=== PATIENT | male | born 1955 | race African-American/Black ===

== ENCOUNTER 2016-10-04 13:14 | Emergency (ER) | payer OTHER ==
[~2016-10-04] VITALS: Ht 167.6 cm; Wt 83.9 kg
[2016-10-04] MEDS ORDERED: ACETAMINOPHEN 500 MG TABLET PO ONE (14:45)
[2016-10-04] MEDS ORDERED: IV NORMAL SALINE 1000ML BAG 1,000 ML IV ONE (14:45)
[2016-10-04] MEDS ORDERED: FOSPHENYTOIN 1,000 MG in IV NORMAL SALINE 50ML 50 ML IV ONE (15:15)
--- NOTE | 2016-10-04 15:34 | PHYS DOC ---
Past Medical History Past Medical History: Hypertension, Seizure Additional Past Medical Histor: neuropathy Past Surgical History: No Surgical History Alcohol Use: Rarely Drug Use: None Adult General Chief Complaint Chief Complaint: SEIZURE HPI HPI Patient is a 61 year old male brought to the ED by family members with a complaint of a seizure. The patient has had a seizure disorder and has taken Dilantin since 1977. His dose is 360 mg at bedtime. He has not taken it for the last 2 or 3 nights because he has been sick. He has not run out, he just hasn't taken it. He states in the past when he goes to 3 days without taking Dilantin he will often have a seizure. He was seen this morning at the [facility] where he usually gets medical care for the complaint of not feeling well. He reports that influenza swab was negative but they put him on Tamiflu anyway because he had symptoms of influenza. He has had fever, chills, and body aches for 2 or 3 days. PCP [facility] Review of Systems Review of Systems Constitutional: Positive fever and chills 2-3 days Eyes: Denies change in visual acuity, redness, or eye pain [] HENT: Denies nasal congestion or sore throat [] Respiratory: Positive cough 2-3 days Cardiovascular: Denies chest pain GI: Denies abdominal pain, nausea, vomiting, bloody stools or diarrhea [] : Complains of some urinary frequency and burning Musculoskeletal: Complains of diffuse aches and pains Integument: Denies rash or skin lesions [] Neurologic: As in history of present illness for 2 seizures today Current Medications Current Medications Current Medications Medications (Trade) Dose Ordered Sig/Chaya Start Time Stop Time Status Last Admin Dose Admin Acetaminophen 1000 mg 1,000 mg 1X ONCE 10/04/16 14:45 10/04/16 14:46 DC 10/04/16 14:48 1,000 MG Fosphenytoin Sodium/Sodium Chloride (Cerebyx/Iv Sodium Chloride 0.9% 50ml) 70 ml @ 280 mls/hr 1X ONCE 10/04/16 15:15 10/04/16 15:29 DC 10/04/16 15:17 280 MLS/HR Sodium Chloride 1,000 ml @ 1,000 mls/hr 1X ONCE 10/04/16 14:45 10/04/16 15:44 DC 10/04/16 14:45 1,000 MLS/HR Allergies Allergies Allergies Coded Allergies Type Severity Reaction Last Updated Verified sulfamethoxazole Allergy Intermediate 03/27/14 No trimethoprim Allergy Intermediate 03/27/14 No Physical Exam Physical Exam Constitutional: Well developed, well nourished, alert, mentating normally, appears to not feel well HENT: Normocephalic, atraumatic, bilateral external ears normal, nose normal. [ ] Eyes: conjunctiva mildly injected bilaterally without discharge, no discharge. [ ] Neck: Normal range of motion, no stridor. [] Cardiovascular:Heart rate regular rhythm, no murmur [] Lungs & Thorax: Bilateral breath sounds clear to auscultation [] Abdomen: Bowel sounds normal, soft, no tenderness, no masses, no pulsatile masses. [] Skin: Warm, dry, no erythema, no rash. [] Extremities: No tenderness, no cyanosis, no clubbing, ROM intact, no edema. [] Neurologic: Alert and oriented X 3, normal motor function, normal sensory function, no focal deficits noted. [] Current Patient Data Vital Signs Vital Signs Date Time Temp Pulse Resp B/P Pulse Ox O2 Delivery O2 Flow Rate FiO2 10/04/16 13:24 98.4 95 18 150/84 93 Room Air 98.4 Lab Values Laboratory Tests Test 10/04/16 13:35 10/04/16 14:14 Phenytoin (Dilantin) Level 3.3mcg/mL (10.0-20.0) L Phenytoin Last Dose Date 10/01/16 Phenytoin Last Dose Time 2200 Urine Collection Type Unknown Urine Color Yellow Urine Clarity Clear Urine pH 7.0 Urine Specific [place] 1.020 Urine Protein 100mg/dL (NEG-TRACE) Urine Glucose (UA) Negativemg/dL (NEG) Urine Ketones (Stick) Negativemg/dL (NEG) Urine Blood Moderate (NEG) Urine Nitrite Negative (NEG) Urine Bilirubin Negative (NEG) Urine Urobilinogen Dipstick 0.2mg/dL (0.2 mg/dL) Urine Leukocyte Esterase Negative (NEG) Urine RBC >40/HPF (0-2) Urine WBC 0/HPF (0-4) Urine Bacteria 0/HPF (0-FEW) Urine Hyaline Casts Moderate/HPF Urine Mucus Marked/LPF Urine Sperm Present/HPF EKG EKG [] Radiology/Procedures Radiology/Procedures [] Course & Med Decision Making Course & Med Decision Making Pertinent Labs and Imaging studies reviewed. (See chart for details) 61-year-old male with a history of seizure disorder has missed a couple of doses of Dilantin and reports to self-limited seizures today. He also has been sick with a viral syndrome, already treated with Tamiflu earlier today at the [facility]. Labs shows subtherapeutic Dilantin level, I offered the patient oral versus IV Dilantin and he chose IV. He was given a gram of fosphenytoin IV and tolerated that well. Also given a liter of IV saline and acetaminophen for his viral syndrome complaints. For the complaints of urinary burning and frequency I ordered a urinalysis which is negative for infection but positive for microscopic hematuria. He has an appointment in 2 days at the [facility] with his primary care doctor and I asked him to discuss this with his doctor and told him he may need some further evaluation of microscopic hematuria. The patient had no seizure activity in the ED. He was discharged with family members. [] Dragon Disclaimer Dragon Disclaimer This electronic medical record was generated, in whole or in part, using a voice recognition dictation system. Departure Departure Impression: Primary Impression: Seizure Additional Impression: Noncompliance with medications Disposition: HOME, SELF-CARE Condition: STABLE Referrals: NO PCP (PCP) Patient Instructions: Hematuria, Adult Additional Instructions: Starting with tonight's dose, take your Dilantin as prescribed. For fever, take ibuprofen 800 mg every 6-8 hours, and take acetaminophen 1000 mg every 6-8 hours. Alternate those see your taking one or the other every 3-4 hours. Drink plenty of fluids. Urinalysis did not show any infection, but did show microscopic red blood cells. This needs to be evaluated by your primary care doctor at the [place]. Make an appointment and take the results of the urinalysis with you. Problem Qualifiers HONORIO CASTANEDA MD Oct 04, 2016 15:34
[2016-10-04 15:35] LABS: BILIRUBIN,URINE NEGATIVE (NEG); GLUCOSE,URINE NEGATIVE (NEG); NITRITE,URINE NEGATIVE (NEG); PROTEIN,URINE 100 mg/dL (NEG-TRACE); UROBILINOGEN,URINE 0.2 mg/dL (0.2 mg/dL)
[2016-10-04 15:43] LABS: BACTERIA,URINE 0 /HPF (0-FEW); RBC,URINE >40 /HPF (0-2); SPERM,URINE PRESENT /HPF; WBC,URINE 0 /HPF (0-4)
[2016-10-04 16:00] VITALS: BP 157/76
== END 2016-10-04 16:41 | disposition home or self-care (01) ==
LOC: ER 13:14
DX: R56.9 Unspecified convulsions (principal); Z91.14 Patient's other noncompliance with medication regimen; G40.909 Epilepsy, unspecified, not intractable, without status epilepticus; I10 Essential (primary) hypertension; G62.9 Polyneuropathy, unspecified; Z88.2 Allergy status to sulfonamides; Z88.1 Allergy status to other antibiotic agents
CPT/HCPCS: 36415; 80185; 81001; 96361; 96365; 99284; J7030; Q2009

== ENCOUNTER 2016-11-15 20:55 | Inpatient (IN) | payer OTHER ==
[~2016-11-15] VITALS: Ht 172.7 cm; Wt 91.2 kg
[2016-11-15] MEDS ORDERED: ONDANSETRON PF 4 MG/2 ML VIAL. IV ONE (22:45)
[2016-11-15] MEDS ORDERED: IV NORMAL SALINE 1000ML BAG 1,000 ML IV SCH (22:45)
[2016-11-15 23:02] LABS: BASO # 0.1 x10^3/uL (0.0-0.2); BASO % 1 % (0-3); EOS % 0 % (0-3); HEMATOCRIT 41.1 % (39.0-53.0); HEMOGLOBIN 13.5 g/dL (13.0-17.5); LYMPH # 0.9 x10^3/uL (1.0-4.8); LYMPH % 6 % (24-48); MEAN CORPUSCULAR HEMOGLOBIN 30 pg (25-35); MEAN CORPUSCULAR HGB CONC 33 g/dL (31-37); MEAN CORPUSCULAR VOLUME 90 fL (79-100); MONO % 8 % (0-9); NEUT % 85 % (31-73); PLATELET COUNT 271 x10^3/uL (140-400); RED BLOOD COUNT 4.54 x10^6/uL (4.30-5.70); RED CELL DISTRIBUTION WIDTH 13.2 % (11.5-14.5); WHITE BLOOD COUNT 16.1 x10^3/uL (4.0-11.0)
[2016-11-15 23:13] LABS: CALCIUM 9.3 mg/dL (8.5-10.1); CREATININE 1.2 mg/dL (0.7-1.3); POTASSIUM 3.5 mmol/L (3.5-5.1)
[2016-11-15 23:19] LABS: ALBUMIN 4.7 g/dL (3.4-5.0); ALBUMIN/GLOBULIN RATIO 1.1 (1.0-1.7); TOTAL BILIRUBIN 0.9 mg/dL (0.2-1.0)
[2016-11-15] MEDS ORDERED: CONTRAST GIVEN MC PRN (23:30)
[2016-11-15 23:34] LABS: % BASOS 1 % (0-3); PLT ESTIMATE ADEQUATE (ADEQUATE)
[2016-11-15] MEDS ORDERED: IOHEXOL 300 MG/ML 75 ML VIAL IV ONE (23:45)
[2016-11-15 23:55] LABS: BILIRUBIN,URINE NEGATIVE (NEG); GLUCOSE,URINE NEGATIVE (NEG); NITRITE,URINE NEGATIVE (NEG); PROTEIN,URINE NEGATIVE (NEG-TRACE); UROBILINOGEN,URINE 0.2 mg/dL (0.2 mg/dL)
[2016-11-16] VITALS (7 sets, daily range): BP systolic 136–176; BP diastolic 68–117
[2016-11-16 00:04] LABS: BACTERIA,URINE 0 /HPF (0-FEW); BARBITURATES NEG (NEG); BENZODIAZEPINES NEG (NEG); CANNABINOIDS NEG (NEG); COCAINE POS (NEG); METHADONE NEG (NEG); OPIATES NEG (NEG); PHENCYCLIDINE NEG (NEG); SQUAMOUS EPITHELIAL CELL,UR OCC /LPF; WBC,URINE 0 /HPF (0-4)
[2016-11-16 00:05] LABS: ETHANOL, URINE NEG (NEG)
--- NOTE | 2016-11-16 00:13 | RAD ---
PROCEDURE CT abdomen pelvis with contrast. HISTORY Severe mid abdominal pain. TECHNIQUE Helical CT imaging of the abdomen and pelvis is performed after 75 cc Omnipaque 300 IV contrast. PQRS: One or more the following individualized dose reduction techniques were utilized for the study: 1. Automated exposure control. 2. Adjustment of the mA and/or kV according to patient size. 3. Use of iterative reconstruction technique. COMPARISON None. FINDINGS Mild dependent atelectasis in the lower lobes. Cardiac size normal. There is a near fluid density nodule in the right cardiophrenic space measuring 1.7 x 2.6 cm. Finding does not have an appearance of a lymph node. Finding appears separate from the pericardium. The liver, gallbladder, spleen, right adrenal gland, abdominal aorta, and kidneys are normal. There is indeterminate left adrenal nodule measuring 3 x 2 centimeters. There is moderate inflammation along atrophic pancreas body and tail. The pancreatic duct is dilated in the atrophic section of pancreas measuring up to 6 millimeters. The pancreas head is homogeneous. Pancreatic duct is not dilated in the pancreas head. A definite pancreas mass at the point of transition is not seen although there is subtle hyper enhancement, coronal image 19. Evaluation of bowel may be limited without oral contrast. Stomach unremarkable. No dilated small bowel. The ascending and transverse colon is distended with air and scattered stool. No wall thickening is seen. Colonic pseudo-obstruction a consideration. The appendix is normal. No abdominal adenopathy. The urinary bladder is normal. Prostate size normal. No pelvic free fluid. No acute bone abnormality. IMPRESSION 1. There is peripancreatic inflammation of the body and tail compatible with acute pancreatitis. 2. The body and tail of the pancreas is atrophic with dilation of the pancreatic duct. There is faint hyper enhancement at point of transition to normal-appearing pancreas head and nondilated pancreatic duct. A mass is not excluded. After pancreatitis has resolved recommend further evaluation with MR abdomen with and without contrast. 3. Left adrenal nodule, indeterminate. 4. Gaseous distention of ascending and transverse colon may be due to colonic pseudo-obstruction. 5. Near fluid density nodule right cardiophrenic space. Suggest attention on follow up. Electronically signed by: Drew Hernandez MD (Nov 16, 2016 00:12:00)
[2016-11-16] MEDS: IV NORMAL SALINE 1000ML BAG 1,000 ML IV SCH ×6 (00:56→23:20)
[2016-11-16] MEDS ORDERED: ONDANSETRON PF 4 MG/2 ML VIAL. IV PRN ×2 (01:00→10:00)
[2016-11-16] MEDS ORDERED: HYDROMORPHONE 2 MG/ML VIAL. IV ONE (01:00)
[2016-11-16] MEDS ORDERED: FENTANYL PF 100 MCG/2 ML VIAL. IV ONE (01:30)
--- NOTE | 2016-11-16 01:37 | ACF ---
Admission Forms Criteria PANCREATITIS Clinical Indications for Admission to Inpatient Care (Place 'X' for any and all applicable criteria): Admission is indicated for 1 or more of the following (1)(2)(3)(4): [X]I. Acute pancreatitis[A] as indicated by 2 or MORE of the following: [X]a) Abdominal pain (eg, epigastric, left upper quadrant) [ ]b) Serum amylase or serum lipase greater than 3 times the upper limit of normal [X]c) Characteristic findings from abdominal imaging (eg, pancreatic inflammation, pancreatic necrosis, peripancreatic fluid collection)[B] [ ]II. Pancreatitis (acute or chronic ) requiring inpatient care as indicated by 1 or more of the following [ ]a) Inability to maintain oral hydration Hypoxemia [ ]b) Evidence of infection (eg, fever, peripancreatic abscess) [ ]c) Severe pain requiring acute inpatient management [ ]d) Hemodynamic instability [ ]e) Hypoxemia [ ]f) Acute renal failure [ ]g) Severe electrolyte abnormalities Extended stay beyond goal length of stay may be needed for (1)(11) [ ]a) Severe acute pancreatitis (10)(19) [ ]b) Persistent symptoms, ascites, or pleural effusion [ ]c) Abdominal compartment syndrome (10) [ ]d) Late complications [ ]e) Gallstones in gallbladder [ ]f) Acute renal failure (27) The original [employer] content created by [employer] has been revised. The portions of the content which have been revised are identified through the use of italic text or in bold,and [facility] has neither reviewed nor approved the modified material.All other unmodified content is copyright [employer]. Please see references footnoted in the original [employer] edition 2016 Admission Criteria Met?: Yes AGUEDA DIAZ Nov 16, 2016 01:37
--- NOTE | 2016-11-16 02:39 | PHYS DOC ---
Past Medical History Past Medical History: Hypertension, Seizure Additional Past Medical Histor: neuropathy Past Surgical History: No Surgical History Alcohol Use: Rarely Drug Use: Other Social History Narrative: "ALL OF THEM!" Adult General Chief Complaint Chief Complaint: ABDOMINAL PAIN HPI HPI Patient is a 61 year old gentleman who presents here today secondary to abdominal pain. Patient reports that the abdominal pain started approximately 2: 58 PM today. Patient is a history of hypertension. Patient has a history significant for obstructive sleep apnea. Patient has a history of pancreatitis. Patient reports he does smoke drink and does do drugs. Patient has a history of seizures in the past. Patient has any coronary disease, diabetes, CHF. Patient has not had any abdominal surgeries in the past. Patient has any fevers shakes chills. Patient reports his last drink was approximately 2 months ago. Patient denies any hematemesis or coffee-ground emesis although he reports he had approximately 3-4 bouts of vomiting today. Patient has any diarrhea chest pain shortness of breath dysuria frequency urgency melena bright red blood per rectum. Patient reports that the pain started at 3 PM. Patient reports that approximate 3 PM before the symptoms started he ate macaroni and cheese and CABG. Patient's physical exam is significant tenderness to palpation to the midepigastric area. Patient has no rebound or guarding. Patient assess obturator signs. Patient does not present with any signs or symptoms of be consistent with acute surgical abdomen. Patient's ER course is significant for a CT scan that revealed significant amount of inflammation around the pancreas. There was peripancreatic inflammation of the body and the tail compatible with acute pancreatitis. The body until the pancreas was atrophic with dilatation of the pancreatic duct. There is a faint hyperenhancement at the point of transition to normal appearing pancreas head and did not dilatation pancreatic duct. The mass is not excluded. Patient's labs were all within normal limits. Patient's lipase was unremarkable. While in the ER patient was given Dilaudid as well as fentanyl IV to assist with his pain. Patient does appear to be much more comfortable. Patient was given IV fluids for hydration given his multiple bouts of emesis. PE #1 abdominal pain: Most likely secondary to pancreatitis. It's unclear whether or not this patient might have chronic versus acute pancreatitis given his normal lipase however CT scan was significant inflammatory changes around the pancreas. Patient be admitted to the hospital for pain management, hydration , bowel rest, and GI evaluation. Review of Systems Review of Systems Constitutional: Denies fever or chills [] Eyes: Denies change in visual acuity, redness, or eye pain [] HENT: Denies nasal congestion or sore throat [] All other review systems are negative except as documented in the history of present illness portion. Current Medications Current Medications Current Medications Medications (Trade) Dose Ordered Sig/Chaya Start Time Stop Time Status Last Admin Dose Admin Info (Do NOT chart on this entry -- for MONITORING) 1 each PRN DAILY PRN 11/15/16 23:30 11/17/16 23:29 Iohexol (Omnipaque 300 Mg/ml) 75 ml 1X ONCE 11/15/16 23:45 11/15/16 23:46 DC 11/15/16 23:38 75 ML Ondansetron HCl (Zofran) 4 mg 1X ONCE 11/15/16 22:45 11/15/16 22:46 DC 11/15/16 23:53 4 MG Sodium Chloride (Iv Sodium Chloride 0.9% 1000ml Bag) 1,000 ml @ 1,000 mls/hr Q1H 11/15/16 22:45 11/15/16 23:44 DC 11/15/16 23:53 1,000 MLS/HR Allergies Allergies Allergies Coded Allergies Type Severity Reaction Last Updated Verified sulfamethoxazole Allergy Intermediate 03/27/14 No trimethoprim Allergy Intermediate 03/27/14 No Physical Exam Physical Exam Constitutional: Well developed, well nourished, no acute distress, non-toxic appearance. [] HENT: Normocephalic, atraumatic, bilateral external ears normal, oropharynx moist, no oral exudates, nose normal. [] Eyes: PERRLA, EOMI, conjunctiva normal, no discharge. [] Neck: Normal range of motion, no tenderness, supple, no stridor. [] Cardiovascular:Heart rate regular rhythm, no murmur [] Lungs & Thorax: Bilateral breath sounds clear to auscultation [] Abdomen: See above. Back: No tenderness, no CVA tenderness. [] Extremities: No tenderness, no cyanosis, no clubbing, ROM intact, no edema. [] Neurologic: Alert and oriented X 3, normal motor function, normal sensory function, no focal deficits noted. [] Psychologic: Affect normal, judgement normal, mood normal. [] Current Patient Data Vital Signs Vital Signs Date Time Temp Pulse Resp B/P Pulse Ox O2 Delivery O2 Flow Rate FiO2 11/15/16 23:58 91 22 193/90 97 Room Air 11/15/16 21:59 98.1 98.1 Lab Values Laboratory Tests Test 11/15/16 22:48 11/15/16 23:50 White Blood Count 16.1x10^3/uL (4.0-11.0) H Red Blood Count 4.54x10^6/uL (4.30-5.70) Hemoglobin 13.5g/dL (13.0-17.5) Hematocrit 41.1% (39.0-53.0) Mean Corpuscular Volume 90fL (79-100) Mean Corpuscular Hemoglobin 30pg (25-35) Mean Corpuscular Hemoglobin Concent 33g/dL (31-37) Red Cell Distribution Width 13.2% (11.5-14.5) Platelet Count 271x10^3/uL (140-400) Neutrophils (%) (Auto) 85% (31-73) H Lymphocytes (%) (Auto) 6% (24-48) L Monocytes (%) (Auto) 8% (0-9) Eosinophils (%) (Auto) 0% (0-3) Basophils (%) (Auto) 1% (0-3) Neutrophils # (Auto) 13.7x10^3uL (1.8-7.7) H Lymphocytes # (Auto) 0.9x10^3/uL (1.0-4.8) L Monocytes # (Auto) 1.3x10^3/uL (0.0-1.1) H Eosinophils # (Auto) 0.0x10^3/uL (0.0-0.7) Basophils # (Auto) 0.1x10^3/uL (0.0-0.2) Segmented Neutrophils % 86% (35-66) H Band Neutrophils % 2% (0-9) Lymphocytes % 6% (24-48) L Monocytes % 5% (0-10) Basophils % 1% (0-3) Platelet Estimate Adequate (ADEQUATE) Sodium Level 136mmol/L (136-145) Potassium Level 3.5mmol/L (3.5-5.1) Chloride Level 98mmol/L (98-107) Carbon Dioxide Level 25mmol/L (21-32) Anion Gap 13 (6-14) Blood Urea Nitrogen 11mg/dL (8-26) Creatinine 1.2mg/dL (0.7-1.3) Estimated GFR (Cockcroft-Gault) 75.0 BUN/Creatinine Ratio 9 (6-20) Glucose Level 151mg/dL (70-99) H Calcium Level 9.3mg/dL (8.5-10.1) Total Bilirubin 0.9mg/dL (0.2-1.0) Aspartate Amino Transferase (AST) 20U/L (15-37) Alanine Aminotransferase (ALT) 36U/L (16-63) Alkaline Phosphatase 87U/L (46-116) Troponin I Quantitative < 0.017ng/mL (0.000-0.055) Total Protein 9.0g/dL (6.4-8.2) H Albumin 4.7g/dL (3.4-5.0) Albumin/Globulin Ratio 1.1 (1.0-1.7) Lipase 70U/L (73-393) L Ethyl Alcohol Level < 10mg/dL (0-10) Urine Collection Type Unknown Urine Color Yellow Urine Clarity Clear Urine pH 8.0 Urine Specific [place] <=1.005 Urine Protein Negativemg/dL (NEG-TRACE) Urine Glucose (UA) Negativemg/dL (NEG) Urine Ketones (Stick) Negativemg/dL (NEG) Urine Blood Moderate (NEG) Urine Nitrite Negative (NEG) Urine Bilirubin Negative (NEG) Urine Urobilinogen Dipstick 0.2mg/dL (0.2 mg/dL) Urine Leukocyte Esterase Negative (NEG) Urine RBC 11-20/HPF (0-2) Urine WBC 0/HPF (0-4) Urine Squamous Epithelial Cells Occ/LPF Urine Bacteria 0/HPF (0-FEW) Urine Mucus Slight/LPF Urine Opiates Screen Neg (NEG) Urine Methadone Screen Neg (NEG) Urine Barbiturates Neg (NEG) Urine Phencyclidine Screen Neg (NEG) Urine Amphetamine/Methamphetamine Neg (NEG) Urine Benzodiazepines Screen Neg (NEG) Urine Cocaine Screen Pos (NEG) Urine Cannabinoids Screen Neg (NEG) Urine Ethyl Alcohol Neg (NEG) Laboratory Tests 11/15/16 22:48 Laboratory Tests 11/15/16 22:48 EKG EKG [] Radiology/Procedures Radiology/Procedures [] Course & Med Decision Making Course & Med Decision Making Pertinent Labs and Imaging studies reviewed. (See chart for details) [] Dragon Disclaimer Dragon Disclaimer This electronic medical record was generated, in whole or in part, using a voice recognition dictation system. Departure Departure Impression: Primary Impression: Pancreatitis Additional Impressions: Intractable abdominal pain Dehydration Crack cocaine use Disposition: ADMITTED INPATIENT Admitting Physician: Demar Tan Condition: STABLE Referrals: UNKNOWN PCP NAME (PCP) Problem Qualifiers Primary Impression: Pancreatitis Chronicity: acute Pancreatitis type: idiopathic Acute pancreatitis complication: unspecified Qualified Code: K85.00 - Idiopathic acute pancreatitis without necrosis or infection MADDY SEAY MD Nov 16, 2016 02:39
[2016-11-16] MEDS ORDERED: PHEN100C PO (03:31)
[2016-11-16] MEDS ORDERED: RANI150C PO (03:31)
[2016-11-16] MEDS ORDERED: GABA-586 PO (03:31)
[2016-11-16] MEDS ORDERED: AMLO5TAB4 PO (03:31)
--- NOTE | 2016-11-16 05:58 | EKG ---
[facility] [address] [place] [address] Test Date: 2016-11-15 Test Time: 23:22:33 Pat Name: ANUSHKA PEREIRA Department: Room: 563 1 Gender: M Breast Splitter: : 1955 Requested By: MADDY SEAY Order Number: [id number] Reading MD: Willie Spaulding Measurements Intervals [place] Rate: 91 P: 22 MA: 196 QRS: -8 QRSD: 78 T: 6 QT: 340 QTc: 420 Interpretive Statements SINUS RHYTHM NON-SPECIFIC ST/T CHANGES Electronically Signed On 11-16-2016 8:30:55 CDT by Willie Spaulding
[2016-11-16] MEDS ORDERED: hydrALAZINE 20 MG/ML VIAL. IVP PRN (10:00)
[2016-11-16] MEDS ORDERED: ACETAMINOPHEN 325 MG TABLET. PO PRN (10:00)
[2016-11-16] MEDS ORDERED: ALBUTEROL SULFATE 2.5 MG/3 ML NEBU. NEB PRN (10:00)
[2016-11-16] MEDS: FENTANYL PF 100 MCG/2 ML VIAL. IV PRN ×5 (10:03→21:42)
--- NOTE | 2016-11-16 13:13 | PDOC1 ---
History and Physical Current Problem List Problem List Problems Medical Problems: (1) Crack cocaine use Status: Acute (2) Dehydration Status: Acute (3) Intractable abdominal pain Status: Acute (4) Pancreatitis Status: Acute Current Medications Current Medications Current Medications Medications (Trade) Dose Ordered Sig/Chaya Start Time Stop Time Status Last Admin Dose Admin Acetaminophen (Tylenol) 325 mg PRN Q6HRS PRN 11/16/16 10:00 Acetaminophen/ Hydrocodone Bitart (Lortab 5/325) 1 tab PRN Q6HRS PRN 11/16/16 10:00 Albuterol Sulfate 2.5 mg 2.5 mg PRN Q4HRS PRN 11/16/16 10:00 Fentanyl Citrate (Fentanyl 2ml Vial) 50 mcg 1X ONCE 11/16/16 01:30 11/16/16 01:31 DC Hydralazine HCl (Apresoline) 10 mg PRN Q4HRS PRN 11/16/16 10:00 Hydromorphone HCl (Dilaudid) 1 mg 1X ONCE 11/16/16 01:00 11/16/16 01:01 DC 11/16/16 01:01 1 MG Info (Do NOT chart on this entry -- for MONITORING) 1 each PRN DAILY PRN 11/15/16 23:30 11/17/16 23:29 Iohexol (Omnipaque 300 Mg/ml) 75 ml 1X ONCE 11/15/16 23:45 11/15/16 23:46 DC 11/15/16 23:38 75 ML Ondansetron HCl (Zofran) 4 mg PRN Q8HRS PRN 11/16/16 10:00 Sodium Chloride (Iv Sodium Chloride 0.9% 1000ml Bag) 1,000 ml @ 150 mls/hr Q6H40M 11/16/16 10:00 11/17/16 09:59 11/16/16 10:02 150 MLS/HR Allergies Allergies Allergies Coded Allergies Type Severity Reaction Last Updated Verified sulfamethoxazole Allergy Intermediate 03/27/14 No trimethoprim Allergy Intermediate 03/27/14 No ROS Review of System CONSTITUTIONAL: No fever or chills EYES: No recent changes SKIN: No rash or itching CARDIOVASCULAR: No chest pain, syncope, palpitations, or edema RESPIRATORY: No SOB or cough GASTROINTESTINAL: nausea, vomiting or abdominal pain NEUROLOGICAL: No headaches or weakness ENDOCRINE: No cold or heat intolerance GENITOURINARY: No urgency or frequency of urination MUSCULOSKELETAL: No back pain or joint pain LYMPHATICS: No enlarged lymph nodes PSYCHIATRIC: No anxiety or depression Physical Exam Physical Exam GEN.: No apparent distress. Alert and oriented. HEENT: Head is normocephalic, atraumatic NECK: Supple. no JVD LUNGS: Clear to auscultation. normal airflow HEART: RRR, S1, S2 present. Peripheral pulses intact ABDOMEN: Soft, epigastric tender. Positive bowel sounds. EXTREMITIES: Without any cyanosis. NEUROLOGIC: Normal speech, normal tone PSYCHIATRIC: Normal affect, normal mood. SKIN: No visible skin lesions. Vitals Vitals Vital Signs Date Time Temp Pulse Resp B/P Pulse Ox O2 Delivery O2 Flow Rate FiO2 11/16/16 11:05 98.8 86 18 151/93 93 Room Air 98.8 Labs Labs Laboratory Tests Test 11/15/16 22:48 11/15/16 23:50 11/16/16 05:25 White Blood Count 16.1x10^3/uL (4.0-11.0) Red Blood Count 4.54x10^6/uL (4.30-5.70) Hemoglobin 13.5g/dL (13.0-17.5) Hematocrit 41.1% (39.0-53.0) Mean Corpuscular Volume 90fL (79-100) Mean Corpuscular Hemoglobin 30pg (25-35) Mean Corpuscular Hemoglobin Concent 33g/dL (31-37) Red Cell Distribution Width 13.2% (11.5-14.5) Platelet Count 271x10^3/uL (140-400) Neutrophils (%) (Auto) 85% (31-73) Lymphocytes (%) (Auto) 6% (24-48) Monocytes (%) (Auto) 8% (0-9) Eosinophils (%) (Auto) 0% (0-3) Basophils (%) (Auto) 1% (0-3) Neutrophils # (Auto) 13.7x10^3uL (1.8-7.7) Lymphocytes # (Auto) 0.9x10^3/uL (1.0-4.8) Monocytes # (Auto) 1.3x10^3/uL (0.0-1.1) Eosinophils # (Auto) 0.0x10^3/uL (0.0-0.7) Basophils # (Auto) 0.1x10^3/uL (0.0-0.2) Segmented Neutrophils % 86% (35-66) Band Neutrophils % 2% (0-9) Lymphocytes % 6% (24-48) Monocytes % 5% (0-10) Basophils % 1% (0-3) Platelet Estimate Adequate (ADEQUATE) Sodium Level 136mmol/L (136-145) Potassium Level 3.5mmol/L (3.5-5.1) Chloride Level 98mmol/L (98-107) Carbon Dioxide Level 25mmol/L (21-32) Anion Gap 13 (6-14) Blood Urea Nitrogen 11mg/dL (8-26) Creatinine 1.2mg/dL (0.7-1.3) Estimated GFR (Cockcroft-Gault) 75.0 BUN/Creatinine Ratio 9 (6-20) Glucose Level 151mg/dL (70-99) Calcium Level 9.3mg/dL (8.5-10.1) Total Bilirubin 0.9mg/dL (0.2-1.0) Aspartate Amino Transf (AST/SGOT) 20U/L (15-37) Alanine Aminotransferase (ALT/SGPT) 36U/L (16-63) Alkaline Phosphatase 87U/L (46-116) Troponin I Quantitative < 0.017ng/mL (0.000-0.055) Total Protein 9.0g/dL (6.4-8.2) Albumin 4.7g/dL (3.4-5.0) Albumin/Globulin Ratio 1.1 (1.0-1.7) Lipase 70U/L (73-393) 57U/L (73-393) Ethyl Alcohol Level < 10mg/dL (0-10) Urine Collection Type Unknown Urine Color Yellow Urine Clarity Clear Urine pH 8.0 Urine Specific [place] <=1.005 Urine Protein Negativemg/dL (NEG-TRACE) Urine Glucose (UA) Negativemg/dL (NEG) Urine Ketones (Stick) Negativemg/dL (NEG) Urine Blood Moderate (NEG) Urine Nitrite Negative (NEG) Urine Bilirubin Negative (NEG) Urine Urobilinogen Dipstick 0.2mg/dL (0.2 mg/dL) Urine Leukocyte Esterase Negative (NEG) Urine RBC 11-20/HPF (0-2) Urine WBC 0/HPF (0-4) Urine Squamous Epithelial Cells Occ/LPF Urine Bacteria 0/HPF (0-FEW) Urine Mucus Slight/LPF Urine Opiates Screen Neg (NEG) Urine Methadone Screen Neg (NEG) Urine Barbiturates Neg (NEG) Urine Phencyclidine Screen Neg (NEG) Urine Amphetamine/Methamphetamine Neg (NEG) Urine Benzodiazepines Screen Neg (NEG) Urine Cocaine Screen Pos (NEG) Urine Cannabinoids Screen Neg (NEG) Urine Ethyl Alcohol Neg (NEG) Laboratory Tests Test 11/15/16 22:48 11/15/16 23:50 11/16/16 05:25 White Blood Count 16.1x10^3/uL (4.0-11.0) Red Blood Count 4.54x10^6/uL (4.30-5.70) Hemoglobin 13.5g/dL (13.0-17.5) Hematocrit 41.1% (39.0-53.0) Mean Corpuscular Volume 90fL (79-100) Mean Corpuscular Hemoglobin 30pg (25-35) Mean Corpuscular Hemoglobin Concent 33g/dL (31-37) Red Cell Distribution Width 13.2% (11.5-14.5) Platelet Count 271x10^3/uL (140-400) Neutrophils (%) (Auto) 85% (31-73) Lymphocytes (%) (Auto) 6% (24-48) Monocytes (%) (Auto) 8% (0-9) Eosinophils (%) (Auto) 0% (0-3) Basophils (%) (Auto) 1% (0-3) Neutrophils # (Auto) 13.7x10^3uL (1.8-7.7) Lymphocytes # (Auto) 0.9x10^3/uL (1.0-4.8) Monocytes # (Auto) 1.3x10^3/uL (0.0-1.1) Eosinophils # (Auto) 0.0x10^3/uL (0.0-0.7) Basophils # (Auto) 0.1x10^3/uL (0.0-0.2) Segmented Neutrophils % 86% (35-66) Band Neutrophils % 2% (0-9) Lymphocytes % 6% (24-48) Monocytes % 5% (0-10) Basophils % 1% (0-3) Platelet Estimate Adequate (ADEQUATE) Sodium Level 136mmol/L (136-145) Potassium Level 3.5mmol/L (3.5-5.1) Chloride Level 98mmol/L (98-107) Carbon Dioxide Level 25mmol/L (21-32) Anion Gap 13 (6-14) Blood Urea Nitrogen 11mg/dL (8-26) Creatinine 1.2mg/dL (0.7-1.3) Estimated GFR (Cockcroft-Gault) 75.0 BUN/Creatinine Ratio 9 (6-20) Glucose Level 151mg/dL (70-99) Calcium Level 9.3mg/dL (8.5-10.1) Total Bilirubin 0.9mg/dL (0.2-1.0) Aspartate Amino Transf (AST/SGOT) 20U/L (15-37) Alanine Aminotransferase (ALT/SGPT) 36U/L (16-63) Alkaline Phosphatase 87U/L (46-116) Troponin I Quantitative < 0.017ng/mL (0.000-0.055) Total Protein 9.0g/dL (6.4-8.2) Albumin 4.7g/dL (3.4-5.0) Albumin/Globulin Ratio 1.1 (1.0-1.7) Lipase 70U/L (73-393) 57U/L (73-393) Ethyl Alcohol Level < 10mg/dL (0-10) Urine Collection Type Unknown Urine Color Yellow Urine Clarity Clear Urine pH 8.0 Urine Specific [place] <=1.005 Urine Protein Negativemg/dL (NEG-TRACE) Urine Glucose (UA) Negativemg/dL (NEG) Urine Ketones (Stick) Negativemg/dL (NEG) Urine Blood Moderate (NEG) Urine Nitrite Negative (NEG) Urine Bilirubin Negative (NEG) Urine Urobilinogen Dipstick 0.2mg/dL (0.2 mg/dL) Urine Leukocyte Esterase Negative (NEG) Urine RBC 11-20/HPF (0-2) Urine WBC 0/HPF (0-4) Urine Squamous Epithelial Cells Occ/LPF Urine Bacteria 0/HPF (0-FEW) Urine Mucus Slight/LPF Urine Opiates Screen Neg (NEG) Urine Methadone Screen Neg (NEG) Urine Barbiturates Neg (NEG) Urine Phencyclidine Screen Neg (NEG) Urine Amphetamine/Methamphetamine Neg (NEG) Urine Benzodiazepines Screen Neg (NEG) Urine Cocaine Screen Pos (NEG) Urine Cannabinoids Screen Neg (NEG) Urine Ethyl Alcohol Neg (NEG) VTE Prophylaxis Ordered VTE Prophylaxis Devices: Yes VTE Pharmacological Prophylaxi: Yes JULIA MICHAUD MD Nov 16, 2016 13:13
[2016-11-16] MEDS: ENOXAPARIN 40 MG/0.4 ML SYRINGE. SQ SCH (13:57)
[2016-11-16] MEDS: AMLODIPINE BESYLATE 5 MG TABLET. PO SCH (13:58)
[2016-11-16] MEDS: GABAPENTIN 300 MG CAPSULE. PO SCH ×2 (13:58→21:00)
--- NOTE | 2016-11-16 14:26 | PDOC2 ---
GI CONSULT Reason For Consult: Pancreatitis HPI: HPI: 61 y/o AA male w/ h/o previous ERCPs at the OR to "watch his pancreas." History difficult this afternoon; he was sleeping when I walked in, but awoke and is quite uncomfortable, not interested in talking. Epigastric pain began yesterday after eating. To me, denies previous pancreatitis and says never had pain like this previously. Associated w/ n/v. [place] constipated yesterday. Denies hematochezia, melena, hematemesis. Drinks alcohol rarely. (ER note says sober x 2 months.) Denies NSAID use. WBC 16.1, normal LFTs, normal lipase. CT A/P showed peripancreatic inflammation of the body and tail, atrophic body and tail of the pancreas, dilation of pancreatic duct and faint hyper enhancement at point of transition to normal-appearing pancreas head and nondilated pancreatic duct (mass not excluded), left adrenal nodule, gaseous distention of ascending and transverse colon may be due to colonic pseudo-obstruction, and near fluid density nodule right cardiophrenic space. PMH: PMH: from chart - HTN, JOSSELINE, DM, CHF, seizures, BPH FH: Family History: No pertinent hx (denies pancreatitis, GI cancers) Social History: Smoke: <1 pack per day ALCOHOL: rare Drugs: None ROS: GEN: Denies fevers, chills, sweats HEENT: Denies blurred vision, sore throat CV: Denies chest pain RESP: Denies shortness of air, cough GI: Per HPI : Denies hematuria, dysuria ENDO: Denies weight changes NEURO: Denies confusion, dizziness MSK: Denies weakness, joint pain/swelling SKIN: Denies jaundice, pruritus VItals: Vitals: Vital Signs Date Time Temp Pulse Resp B/P Pulse Ox O2 Delivery O2 Flow Rate FiO2 11/16/16 13:58 96 159/100 11/16/16 13:53 Room Air 11/16/16 11:05 98.8 18 93 98.8 Labs: Labs: Laboratory Tests Test 11/15/16 22:48 11/15/16 23:50 11/16/16 05:25 White Blood Count 16.1x10^3/uL (4.0-11.0) Red Blood Count 4.54x10^6/uL (4.30-5.70) Hemoglobin 13.5g/dL (13.0-17.5) Hematocrit 41.1% (39.0-53.0) Mean Corpuscular Volume 90fL (79-100) Mean Corpuscular Hemoglobin 30pg (25-35) Mean Corpuscular Hemoglobin Concent 33g/dL (31-37) Red Cell Distribution Width 13.2% (11.5-14.5) Platelet Count 271x10^3/uL (140-400) Neutrophils (%) (Auto) 85% (31-73) Lymphocytes (%) (Auto) 6% (24-48) Monocytes (%) (Auto) 8% (0-9) Eosinophils (%) (Auto) 0% (0-3) Basophils (%) (Auto) 1% (0-3) Neutrophils # (Auto) 13.7x10^3uL (1.8-7.7) Lymphocytes # (Auto) 0.9x10^3/uL (1.0-4.8) Monocytes # (Auto) 1.3x10^3/uL (0.0-1.1) Eosinophils # (Auto) 0.0x10^3/uL (0.0-0.7) Basophils # (Auto) 0.1x10^3/uL (0.0-0.2) Segmented Neutrophils % 86% (35-66) Band Neutrophils % 2% (0-9) Lymphocytes % 6% (24-48) Monocytes % 5% (0-10) Basophils % 1% (0-3) Platelet Estimate Adequate (ADEQUATE) Sodium Level 136mmol/L (136-145) Potassium Level 3.5mmol/L (3.5-5.1) Chloride Level 98mmol/L (98-107) Carbon Dioxide Level 25mmol/L (21-32) Anion Gap 13 (6-14) Blood Urea Nitrogen 11mg/dL (8-26) Creatinine 1.2mg/dL (0.7-1.3) Estimated GFR (Cockcroft-Gault) 75.0 BUN/Creatinine Ratio 9 (6-20) Glucose Level 151mg/dL (70-99) Calcium Level 9.3mg/dL (8.5-10.1) Total Bilirubin 0.9mg/dL (0.2-1.0) Aspartate Amino Transf (AST/SGOT) 20U/L (15-37) Alanine Aminotransferase (ALT/SGPT) 36U/L (16-63) Alkaline Phosphatase 87U/L (46-116) Troponin I Quantitative < 0.017ng/mL (0.000-0.055) Total Protein 9.0g/dL (6.4-8.2) Albumin 4.7g/dL (3.4-5.0) Albumin/Globulin Ratio 1.1 (1.0-1.7) Lipase 70U/L (73-393) 57U/L (73-393) Ethyl Alcohol Level < 10mg/dL (0-10) Urine Collection Type Unknown Urine Color Yellow Urine Clarity Clear Urine pH 8.0 Urine Specific [place] <=1.005 Urine Protein Negativemg/dL (NEG-TRACE) Urine Glucose (UA) Negativemg/dL (NEG) Urine Ketones (Stick) Negativemg/dL (NEG) Urine Blood Moderate (NEG) Urine Nitrite Negative (NEG) Urine Bilirubin Negative (NEG) Urine Urobilinogen Dipstick 0.2mg/dL (0.2 mg/dL) Urine Leukocyte Esterase Negative (NEG) Urine RBC 11-20/HPF (0-2) Urine WBC 0/HPF (0-4) Urine Squamous Epithelial Cells Occ/LPF Urine Bacteria 0/HPF (0-FEW) Urine Mucus Slight/LPF Urine Opiates Screen Neg (NEG) Urine Methadone Screen Neg (NEG) Urine Barbiturates Neg (NEG) Urine Phencyclidine Screen Neg (NEG) Urine Amphetamine/Methamphetamine Neg (NEG) Urine Benzodiazepines Screen Neg (NEG) Urine Cocaine Screen Pos (NEG) Urine Cannabinoids Screen Neg (NEG) Urine Ethyl Alcohol Neg (NEG) Allergies: Coded Allergies: sulfamethoxazole (Unverified Allergy, Intermediate, 03/27/14) trimethoprim (Unverified Allergy, Intermediate, 03/27/14) Medications: Current Medications Medications (Trade) Dose Ordered Sig/Chaya Route PRN Reason Start Time Stop Time Status Last Admin Dose Admin Sodium Chloride (Iv Sodium Chloride 0.9% 1000ml Bag) 1,000 ml @ 1,000 mls/hr Q1H IV 11/15/16 22:45 11/15/16 23:44 DC 11/15/16 23:53 Ondansetron HCl (Zofran) 4 mg 1X ONCE IV 11/15/16 22:45 11/15/16 22:46 DC 11/15/16 23:53 Iohexol (Omnipaque 300 Mg/ml) 75 ml 1X ONCE IV 11/15/16 23:45 11/15/16 23:46 DC 11/15/16 23:38 Hydromorphone HCl (Dilaudid) 1 mg 1X ONCE IV 11/16/16 01:00 11/16/16 01:01 DC 11/16/16 01:01 Ondansetron HCl (Zofran) 4 mg PRN Q8HRS PRN IV NAUSEA/VOMITING 11/16/16 01:00 11/17/16 00:59 11/16/16 10:04 Fentanyl Citrate 50 mcg 50 mcg PRN Q2HR PRN IV SEVERE PAIN 11/16/16 01:00 11/17/16 00:59 11/16/16 13:53 Sodium Chloride (Iv Sodium Chloride 0.9% 1000ml Bag) 1,000 ml @ 150 mls/hr Q6H40M IV 11/16/16 10:00 11/17/16 09:59 11/16/16 10:02 Amlodipine Besylate (Norvasc) 5 mg DAILY PO 11/16/16 14:00 11/16/16 13:58 Gabapentin (Neurontin) 900 mg TID PO 11/16/16 14:00 11/16/16 13:58 Enoxaparin Sodium (Lovenox 40mg Syringe) 40 mg Q24H SQ 11/16/16 15:00 11/16/16 13:57 Imaging: Imaging: CT A/P IMPRESSION 1. There is peripancreatic inflammation of the body and tail compatible with acute pancreatitis. 2. The body and tail of the pancreas is atrophic with dilation of the pancreatic duct. There is faint hyper enhancement at point of transition to normal-appearing pancreas head and nondilated pancreatic duct. A mass is not excluded. After pancreatitis has resolved recommend further evaluation with MR abdomen with and without contrast. 3. Left adrenal nodule, indeterminate. 4. Gaseous distention of ascending and transverse colon may be due to colonic pseudo-obstruction. 5. Near fluid density nodule right cardiophrenic space. Suggest attention on follow up. PE: GEN: uncomfortable HEENT: Atraumatic, PERRL LUNGS: clear anteriorly HEART: RRR ABD: tender diffusely EXTREMITY: No edema SKIN: No rashes, no jaundice NEURO/PSYCH: A & O 3, poor historian A/P: A/P: Pancreatitis -seems h/o this w/ previous ERCPs at the OR -CT as above: peripancreatic inflammation of the body and tail, atrophic body and tail of the pancreas, dilation of pancreatic duct, faint hyper-enhancement at point of transition to normal-appearing pancreas head and nondilated pancreatic duct (mass not excluded) -lipase WNL Abd pain, n/v -gaseous distention of ascending and transverse colon Leukocytosis Left adrenal nodule -per primary -- Medical therapy for what seems to be chronic pancreatitis (?alcohol) w/ previous eval at OR. NPO, monitor WBC. PRAVEENA VITAL Nov 16, 2016 14:26
--- NOTE | 2016-11-16 15:59 | HP ---
ADMIT DATE: 11/16/2016 CHIEF COMPLAINT: Abdominal pain, nausea, vomiting. HISTORY OF PRESENT ILLNESS: A 61-year-old male patient with prior history of pancreatitis and questionable pancreatic cyst, which has been monitored by doctors at the [facility], presented to the ER with complaints of abdominal pain. Symptoms started nearly yesterday afternoon around 2:30 p.m. The patient's noted that he was drinking alcohol; recently started drinking alcohol, but very limited. But as per the patient, his pancreatitis is under control, which has been monitored by physicians at the [facility]. He denies any hematemesis or hematochezia. He denies any constipation or other symptoms such as chest pain or palpitations. He has history of hypertension and seizures; they were well controlled. PAST MEDICAL HISTORY: Hypertension, seizures, pancreatitis, pancreatic pseudocyst, and neuropathy. PERSONAL HISTORY: No smoking. Alcohol occasionally. No substance abuse. FAMILY HISTORY: Sister has a cancer, unknown type. REVIEW OF SYSTEMS AND PHYSICAL EXAMINATION: Please see my electronic H and P. ALLERGIES: BACTRIM. LABORATORY DATA: WBC 16.1, hemoglobin 13.5, MCV is 90, platelets 2271, lymphocytes 6. Chemistry: Sodium 136, potassium at 3.5, carbon dioxide 25, gap is 13, BUN is 11, creatinine 1.2. Toxicology: Negative except for cocaine. Urine: pH is 8.0, specific gravity is less than 1.005, glucose negative, ketones negative, nitrites negative. IMAGING STUDIES: 1. Abdomen and pelvis CT showed peripancreatic inflammation of the body and tail, compatible with acute pancreatitis. 2. Body and tail of pancreas is atrophic with dilatation of the pancreatic duct. 3. Gastric distension of the ascending and transverse colon may be due to colonic pseudo-obstruction. ASSESSMENT: 1. Acute pancreatitis with prior history of pancreatitis. 2. Hypertension. 3. Seizure history. PLAN: 1. Keep patient n.p.o. and pain control with IV fentanyl 25 mcg q. 2 hours. 2. IV hydration at 150 mL per hour. 3. IV Zofran for nausea and vomiting. 4. Gastroenterology has been consulted. 5. Monitor lipase in a.m. 6. If the patient's symptoms are not improving, repeat imaging studies in couple of days. 7. The patient and his have been educated about alcohol abstinence. 8. Home medications reviewed and reconciled. 9. Other chronic problems are stable condition. 10. DVT prophylaxis with Lovenox. JULIA MICHAUD MD DR: ILENE/fredy JOB#: [id number] / [id number]
--- NOTE | 2016-11-16 16:29 | RAD ---
Limited ultrasound or the abdomen 11/16/2016 Clinical history: Epigastric pain with history of pancreatitis. Technique: A real-time ultrasound examination of the right upper quadrant of the abdomen was performed. Multiple images were obtained. Findings: Comparison is made to the patient's CT scan of the abdomen dated 11/15/2016. The gallbladder is distended. It measures 9.8 cm in greatest diameter. No gallstones are visualized. The gallbladder wall thickness is within normal limits. No pericholecystic fluid is seen. The patient has tenderness with palpation of the ultrasound transducer over the gallbladder (positive sonographic Bautista sign). The common bile duct measures 9 mm in diameter which is mildly dilated. The liver is normal in size measuring 16 cm in length. No focal abnormality of the liver is seen. The pancreas is not well visualized due to overlying bowel gas. The right kidney is within normal limits. Impression: 1. The gallbladder is distended. No gallstones are visualized. The patient has a positive sonographic Bautista sign. 2. The common bile duct is mildly dilated measuring 9 mm in diameter.
[2016-11-16] MEDS: FAMOTIDINE 20 MG TABLET. PO SCH (21:00)
[2016-11-17] MEDS: FENTANYL PF 100 MCG/2 ML VIAL. IV PRN (00:28)
[2016-11-17] MEDS: PHENYTOIN SODIUM EXTENDED 100 MG CAPSULE PO SCH ×2 (00:29→21:38)
[2016-11-17] MEDS: PHENYTOIN SODIUM EXTENDED 30 MG CAPSULE. PO SCH ×2 (00:29→21:38)
[2016-11-17 03:35] VITALS: BP 145/95
[2016-11-17] MEDS: IV NORMAL SALINE 1000ML BAG 1,000 ML IV SCH (06:00)
[2016-11-17] MEDS: HYDROCODONE/APAP 5/325MG TABLET. PO PRN (06:23)
[2016-11-17 07:00] VITALS: BP 137/81
[2016-11-17 07:15] LABS: BASO % 0 % (0-3); EOS % 0 % (0-3); HEMATOCRIT 37.9 % (39.0-53.0); HEMOGLOBIN 12.2 g/dL (13.0-17.5); LYMPH # 1.5 x10^3/uL (1.0-4.8); LYMPH % 10 % (24-48); MEAN CORPUSCULAR HEMOGLOBIN 30 pg (25-35); MEAN CORPUSCULAR HGB CONC 32 g/dL (31-37); MEAN CORPUSCULAR VOLUME 91 fL (79-100); MONO % 11 % (0-9); NEUT % 79 % (31-73); PLATELET COUNT 230 x10^3/uL (140-400); RED BLOOD COUNT 4.14 x10^6/uL (4.30-5.70); RED CELL DISTRIBUTION WIDTH 13.2 % (11.5-14.5); WHITE BLOOD COUNT 15.4 x10^3/uL (4.0-11.0)
[2016-11-17 07:23] LABS: ALBUMIN 3.6 g/dL (3.4-5.0); ALBUMIN/GLOBULIN RATIO 0.9 (1.0-1.7); CALCIUM 8.6 mg/dL (8.5-10.1); CREATININE 1.2 mg/dL (0.7-1.3); POTASSIUM 4.1 mmol/L (3.5-5.1); TOTAL BILIRUBIN 0.5 mg/dL (0.2-1.0); TOTAL PROTEIN 7.4 g/dL (6.4-8.2)
[2016-11-17] MEDS: AMLODIPINE BESYLATE 5 MG TABLET. PO SCH (09:00)
[2016-11-17] MEDS: GABAPENTIN 300 MG CAPSULE. PO SCH ×3 (09:00→21:39)
[2016-11-17] MEDS: FAMOTIDINE 20 MG TABLET. PO SCH ×2 (09:00→21:39)
[2016-11-17 10:49] VITALS: BP 147/103
--- NOTE | 2016-11-17 12:21 | PDOC ---
PROGRESS NOTES Chief Complaint Chief Complaint cc: abdominal pain A/P 1. Acute pancreatitis with prior history of pancreatitis. 2. Hypertension. 3. Seizure history. 4. Sleep apnea. Plan pain control iv morphine IV hydration NPO CPAP GI following History of Present Illness History of Present Illness pain not controlled. Vitals Vitals Vital Signs Date Time Temp Pulse Resp B/P Pulse Ox O2 Delivery O2 Flow Rate FiO2 11/17/16 10:49 98.4 83 20 147/103 93 BiPAP/CPAP 98.4 Physical Exam General: Alert, Oriented X3 Heart: Normal S1, Normal S2 Lungs: Clear Abdomen: Normal bowel sounds, Soft, Other (mild tender in epi) Labs LABS Laboratory Tests Test 11/17/16 06:10 White Blood Count 15.4x10^3/uL (4.0-11.0) Red Blood Count 4.14x10^6/uL (4.30-5.70) Hemoglobin 12.2g/dL (13.0-17.5) Hematocrit 37.9% (39.0-53.0) Mean Corpuscular Volume 91fL (79-100) Mean Corpuscular Hemoglobin 30pg (25-35) Mean Corpuscular Hemoglobin Concent 32g/dL (31-37) Red Cell Distribution Width 13.2% (11.5-14.5) Platelet Count 230x10^3/uL (140-400) Neutrophils (%) (Auto) 79% (31-73) Lymphocytes (%) (Auto) 10% (24-48) Monocytes (%) (Auto) 11% (0-9) Eosinophils (%) (Auto) 0% (0-3) Basophils (%) (Auto) 0% (0-3) Neutrophils # (Auto) 12.2x10^3uL (1.8-7.7) Lymphocytes # (Auto) 1.5x10^3/uL (1.0-4.8) Monocytes # (Auto) 1.6x10^3/uL (0.0-1.1) Eosinophils # (Auto) 0.0x10^3/uL (0.0-0.7) Basophils # (Auto) 0.0x10^3/uL (0.0-0.2) Sodium Level 141mmol/L (136-145) Potassium Level 4.1mmol/L (3.5-5.1) Chloride Level 103mmol/L (98-107) Carbon Dioxide Level 23mmol/L (21-32) Anion Gap 15 (6-14) Blood Urea Nitrogen 14mg/dL (8-26) Creatinine 1.2mg/dL (0.7-1.3) Estimated GFR (Cockcroft-Gault) 75.0 BUN/Creatinine Ratio 12 (6-20) Glucose Level 121mg/dL (70-99) Calcium Level 8.6mg/dL (8.5-10.1) Total Bilirubin 0.5mg/dL (0.2-1.0) Aspartate Amino Transf (AST/SGOT) 13U/L (15-37) Alanine Aminotransferase (ALT/SGPT) 21U/L (16-63) Alkaline Phosphatase 65U/L (46-116) Total Protein 7.4g/dL (6.4-8.2) Albumin 3.6g/dL (3.4-5.0) Albumin/Globulin Ratio 0.9 (1.0-1.7) Assessment and Plan Assessmemt and Plan Problems Medical Problems: (1) Crack cocaine use Status: Acute (2) Dehydration Status: Acute (3) Intractable abdominal pain Status: Acute (4) Pancreatitis Status: Acute Problems: Comment Review of Relevant I have reviewed the following items tammy (where applicable) has been applied. Labs Laboratory Tests Test 11/15/16 22:48 11/15/16 23:50 11/16/16 05:25 11/17/16 06:10 White Blood Count 16.1x10^3/uL (4.0-11.0) 15.4x10^3/uL (4.0-11.0) Red Blood Count 4.54x10^6/uL (4.30-5.70) 4.14x10^6/uL (4.30-5.70) Hemoglobin 13.5g/dL (13.0-17.5) 12.2g/dL (13.0-17.5) Hematocrit 41.1% (39.0-53.0) 37.9% (39.0-53.0) Mean Corpuscular Volume 90fL (79-100) 91fL (79-100) Mean Corpuscular Hemoglobin 30pg (25-35) 30pg (25-35) Mean Corpuscular Hemoglobin Concent 33g/dL (31-37) 32g/dL (31-37) Red Cell Distribution Width 13.2% (11.5-14.5) 13.2% (11.5-14.5) Platelet Count 271x10^3/uL (140-400) 230x10^3/uL (140-400) Neutrophils (%) (Auto) 85% (31-73) 79% (31-73) Lymphocytes (%) (Auto) 6% (24-48) 10% (24-48) Monocytes (%) (Auto) 8% (0-9) 11% (0-9) Eosinophils (%) (Auto) 0% (0-3) 0% (0-3) Basophils (%) (Auto) 1% (0-3) 0% (0-3) Neutrophils # (Auto) 13.7x10^3uL (1.8-7.7) 12.2x10^3uL (1.8-7.7) Lymphocytes # (Auto) 0.9x10^3/uL (1.0-4.8) 1.5x10^3/uL (1.0-4.8) Monocytes # (Auto) 1.3x10^3/uL (0.0-1.1) 1.6x10^3/uL (0.0-1.1) Eosinophils # (Auto) 0.0x10^3/uL (0.0-0.7) 0.0x10^3/uL (0.0-0.7) Basophils # (Auto) 0.1x10^3/uL (0.0-0.2) 0.0x10^3/uL (0.0-0.2) Segmented Neutrophils % 86% (35-66) Band Neutrophils % 2% (0-9) Lymphocytes % 6% (24-48) Monocytes % 5% (0-10) Basophils % 1% (0-3) Platelet Estimate Adequate (ADEQUATE) Sodium Level 136mmol/L (136-145) 141mmol/L (136-145) Potassium Level 3.5mmol/L (3.5-5.1) 4.1mmol/L (3.5-5.1) Chloride Level 98mmol/L (98-107) 103mmol/L (98-107) Carbon Dioxide Level 25mmol/L (21-32) 23mmol/L (21-32) Anion Gap 13 (6-14) 15 (6-14) Blood Urea Nitrogen 11mg/dL (8-26) 14mg/dL (8-26) Creatinine 1.2mg/dL (0.7-1.3) 1.2mg/dL (0.7-1.3) Estimated GFR (Cockcroft-Gault) 75.0 75.0 BUN/Creatinine Ratio 9 (6-20) 12 (6-20) Glucose Level 151mg/dL (70-99) 121mg/dL (70-99) Calcium Level 9.3mg/dL (8.5-10.1) 8.6mg/dL (8.5-10.1) Total Bilirubin 0.9mg/dL (0.2-1.0) 0.5mg/dL (0.2-1.0) Aspartate Amino Transf (AST/SGOT) 20U/L (15-37) 13U/L (15-37) Alanine Aminotransferase (ALT/SGPT) 36U/L (16-63) 21U/L (16-63) Alkaline Phosphatase 87U/L (46-116) 65U/L (46-116) Troponin I Quantitative < 0.017ng/mL (0.000-0.055) Total Protein 9.0g/dL (6.4-8.2) 7.4g/dL (6.4-8.2) Albumin 4.7g/dL (3.4-5.0) 3.6g/dL (3.4-5.0) Albumin/Globulin Ratio 1.1 (1.0-1.7) 0.9 (1.0-1.7) Lipase 70U/L (73-393) 57U/L (73-393) Ethyl Alcohol Level < 10mg/dL (0-10) Urine Collection Type Unknown Urine Color Yellow Urine Clarity Clear Urine pH 8.0 Urine Specific [place] <=1.005 Urine Protein Negativemg/dL (NEG-TRACE) Urine Glucose (UA) Negativemg/dL (NEG) Urine Ketones (Stick) Negativemg/dL (NEG) Urine Blood Moderate (NEG) Urine Nitrite Negative (NEG) Urine Bilirubin Negative (NEG) Urine Urobilinogen Dipstick 0.2mg/dL (0.2 mg/dL) Urine Leukocyte Esterase Negative (NEG) Urine RBC 11-20/HPF (0-2) Urine WBC 0/HPF (0-4) Urine Squamous Epithelial Cells Occ/LPF Urine Bacteria 0/HPF (0-FEW) Urine Mucus Slight/LPF Urine Opiates Screen Neg (NEG) Urine Methadone Screen Neg (NEG) Urine Barbiturates Neg (NEG) Urine Phencyclidine Screen Neg (NEG) Urine Amphetamine/Methamphetamine Neg (NEG) Urine Benzodiazepines Screen Neg (NEG) Urine Cocaine Screen Pos (NEG) Urine Cannabinoids Screen Neg (NEG) Urine Ethyl Alcohol Neg (NEG) Laboratory Tests Test 11/17/16 06:10 White Blood Count 15.4x10^3/uL (4.0-11.0) Red Blood Count 4.14x10^6/uL (4.30-5.70) Hemoglobin 12.2g/dL (13.0-17.5) Hematocrit 37.9% (39.0-53.0) Mean Corpuscular Volume 91fL (79-100) Mean Corpuscular Hemoglobin 30pg (25-35) Mean Corpuscular Hemoglobin Concent 32g/dL (31-37) Red Cell Distribution Width 13.2% (11.5-14.5) Platelet Count 230x10^3/uL (140-400) Neutrophils (%) (Auto) 79% (31-73) Lymphocytes (%) (Auto) 10% (24-48) Monocytes (%) (Auto) 11% (0-9) Eosinophils (%) (Auto) 0% (0-3) Basophils (%) (Auto) 0% (0-3) Neutrophils # (Auto) 12.2x10^3uL (1.8-7.7) Lymphocytes # (Auto) 1.5x10^3/uL (1.0-4.8) Monocytes # (Auto) 1.6x10^3/uL (0.0-1.1) Eosinophils # (Auto) 0.0x10^3/uL (0.0-0.7) Basophils # (Auto) 0.0x10^3/uL (0.0-0.2) Sodium Level 141mmol/L (136-145) Potassium Level 4.1mmol/L (3.5-5.1) Chloride Level 103mmol/L (98-107) Carbon Dioxide Level 23mmol/L (21-32) Anion Gap 15 (6-14) Blood Urea Nitrogen 14mg/dL (8-26) Creatinine 1.2mg/dL (0.7-1.3) Estimated GFR (Cockcroft-Gault) 75.0 BUN/Creatinine Ratio 12 (6-20) Glucose Level 121mg/dL (70-99) Calcium Level 8.6mg/dL (8.5-10.1) Total Bilirubin 0.5mg/dL (0.2-1.0) Aspartate Amino Transf (AST/SGOT) 13U/L (15-37) Alanine Aminotransferase (ALT/SGPT) 21U/L (16-63) Alkaline Phosphatase 65U/L (46-116) Total Protein 7.4g/dL (6.4-8.2) Albumin 3.6g/dL (3.4-5.0) Albumin/Globulin Ratio 0.9 (1.0-1.7) Medications Current Medications Sodium Chloride (Iv Sodium Chloride 0.9% 1000ml Bag) 1,000 ml @ 1,000 mls/hr Q1H IV Last administered on 11/15/16 23:53; Start 11/15/16 at 22:45; Stop 07/22 at 23:44; Status DC Ondansetron HCl (Zofran) 4 mg 1X ONCE IV Last administered on 11/15/16 23:53 ; Start 11/15/16 at 22:45; Stop 11/15/16 at 22:46; Status DC Iohexol (Omnipaque 300 Mg/ml) 75 ml 1X ONCE IV Last administered on 11/15/16 23:38; Start 11/15/16 at 23:45; Stop 11/15/16 at 23:46; Status DC Info (Do NOT chart on this entry -- for MONITORING) 1 each PRN DAILY PRN MC SEE COMMENTS; Start 11/15/16 at 23:30; Stop 11/17/16 at 23:29 Hydromorphone HCl (Dilaudid) 1 mg 1X ONCE IV Last administered on 11/16/16 01 :01; Start 11/16/16 at 01:00; Stop 11/16/16 at 01:01; Status DC Ondansetron HCl (Zofran) 4 mg PRN Q8HRS PRN IV NAUSEA/VOMITING Last administered on 11/16/16 10:04; Start 11/16/16 at 01:00; Stop 11/17/16 at 00:59 ; Status DC Fentanyl Citrate 50 mcg 50 mcg PRN Q2HR PRN IV SEVERE PAIN Last administered on 11/17/16 00:28; Start 11/16/16 at 01:00; Stop 11/17/16 at 00:59; Status DC Sodium Chloride (Iv Sodium Chloride 0.9% 1000ml Bag) 1,000 ml @ 125 mls/hr Q8H IV ; Start 11/16/16 at 00:56; Stop 11/17/16 at 00:55; Status DC Fentanyl Citrate (Fentanyl 2ml Vial) 50 mcg 1X ONCE IV ; Start 11/16/16 at 01: 30; Stop 11/16/16 at 01:31; Status DC Acetaminophen (Tylenol) 325 mg PRN Q6HRS PRN PO MILD PAIN / TEMP; Start at 10:00 Acetaminophen/ Hydrocodone Bitart (Lortab 5/325) 1 tab PRN Q6HRS PRN PO MODERATE TO SEVERE PAIN Last administered on 11/17/16 06:23; Start 11/16/16 at 10:00 Hydralazine HCl (Apresoline) 10 mg PRN Q4HRS PRN IVP ELEVATED BP, SEE COMMENTS Last administered on 11/17/16 00:28; Start 11/16/16 at 10:00 Ondansetron HCl (Zofran) 4 mg PRN Q8HRS PRN IV NAUSEA/VOMITING Last administered on 11/17/16 06:24; Start 11/16/16 at 10:00 Albuterol Sulfate 2.5 mg 2.5 mg PRN Q4HRS PRN NEB SHORTNESS OF BREATH; Start at 10:00 Sodium Chloride (Iv Sodium Chloride 0.9% 1000ml Bag) 1,000 ml @ 150 mls/hr Q6H40M IV Last administered on 11/16/16 23:20; Start 11/16/16 at 10:00; Stop 11/17/16 at 09:59; Status DC Amlodipine Besylate (Norvasc) 5 mg DAILY PO Last administered on 11/16/16 13: 58; Start 11/16/16 at 14:00 Phenytoin Sodium (Dilantin) 400 mg HS PO Last administered on 11/17/16 00:29; Start 11/16/16 at 21:00 Gabapentin (Neurontin) 900 mg TID PO Last administered on 11/16/16 13:58; Start 11/16/16 at 14:00 Famotidine (Pepcid) 20 mg BID PO ; Start 11/16/16 at 21:00 Enoxaparin Sodium (Lovenox 40mg Syringe) 40 mg Q24H SQ Last administered on 13:57; Start 11/16/16 at 15:00 Phenytoin Sodium (Dilantin) 30 mg QHS PO Last administered on 11/17/16 00:29; Start 11/16/16 at 21:00 Active Scripts Active Reported Ranitidine Hcl 150 Mg Capsule 1 Cap PO BID Norvasc (Amlodipine Besylate) 5 Mg Tablet 5 Mg PO DAILY Dilantin (Phenytoin Sodium Extended) 100 Mg Capsule 430 Mg PO HS Gabapentin 300 Mg Capsule 900 Mg PO TID Vitals/I & O Vital Sign - Last 24 Hours 11/16/16 11/16/16 11/16/16 11/16/16 13:53 13:58 15:00 17:29 Temp 97.5 97.5 Pulse 96 71 Resp 17 B/P 159/100 136/68 Pulse Ox 92 O2 Delivery Room Air Room Air Room Air 11/16/16 11/16/16 11/16/16 11/16/16 18:56 19:20 19:50 21:42 Temp 98.9 98.9 Pulse 98 Resp 18 20 B/P 165/108 Pulse Ox 95 O2 Delivery Room Air Room Air Room Air Room Air 11/16/16 11/17/16 11/17/16 11/17/16 23:24 00:01 00:28 00:28 Temp 99.7 99.7 Pulse 103 103 Resp 18 22 B/P 171/117 171/117 Pulse Ox 99 O2 Delivery BiPAP/CPAP BiPAP/CPAP BiPAP/CPAP 11/17/16 11/17/16 11/17/16 11/17/16 03:14 03:35 06:23 07:00 Temp 99.3 99.4 99.3 99.4 Pulse 95 90 Resp 18 22 16 B/P 145/95 137/81 Pulse Ox 99 94 O2 Delivery BiPAP/CPAP BiPAP/CPAP Room Air BiPAP/CPAP 11/17/16 11/17/16 07:25 10:49 Temp 98.4 98.4 Pulse 83 Resp 20 B/P 147/103 Pulse Ox 94 93 O2 Delivery Room Air BiPAP/CPAP Intake and Output 11/16/16 11/16/16 11/17/16 15:00 23:00 07:00 Intake Total 0 ml 0 ml Output Total 250 ml Balance 0 ml -250 ml JULIA MICHAUD MD Nov 17, 2016 12:21
[2016-11-17] MEDS: MORPHINE SULFATE 2 MG/ML DISP.SYRIN. IV PRN ×3 (12:34→20:10)
--- NOTE | 2016-11-17 12:49 | PDOC ---
G I PROGRESS NOTE Reason for Follow-up Abd pain/pancreatitis Subjective Pain persists/appetite starting to improve Physical Exam Lungs clear CV S1 S2 ABD hypoactive BS, soft. mild epigastric tenderness to palpation Review of Relevant I have reviewed the following items tammy (where applicable) has been applied. Labs Laboratory Tests Test 11/15/16 22:48 11/15/16 23:50 11/16/16 05:25 11/17/16 06:10 White Blood Count 16.1x10^3/uL (4.0-11.0) 15.4x10^3/uL (4.0-11.0) Red Blood Count 4.54x10^6/uL (4.30-5.70) 4.14x10^6/uL (4.30-5.70) Hemoglobin 13.5g/dL (13.0-17.5) 12.2g/dL (13.0-17.5) Hematocrit 41.1% (39.0-53.0) 37.9% (39.0-53.0) Mean Corpuscular Volume 90fL (79-100) 91fL (79-100) Mean Corpuscular Hemoglobin 30pg (25-35) 30pg (25-35) Mean Corpuscular Hemoglobin Concent 33g/dL (31-37) 32g/dL (31-37) Red Cell Distribution Width 13.2% (11.5-14.5) 13.2% (11.5-14.5) Platelet Count 271x10^3/uL (140-400) 230x10^3/uL (140-400) Neutrophils (%) (Auto) 85% (31-73) 79% (31-73) Lymphocytes (%) (Auto) 6% (24-48) 10% (24-48) Monocytes (%) (Auto) 8% (0-9) 11% (0-9) Eosinophils (%) (Auto) 0% (0-3) 0% (0-3) Basophils (%) (Auto) 1% (0-3) 0% (0-3) Neutrophils # (Auto) 13.7x10^3uL (1.8-7.7) 12.2x10^3uL (1.8-7.7) Lymphocytes # (Auto) 0.9x10^3/uL (1.0-4.8) 1.5x10^3/uL (1.0-4.8) Monocytes # (Auto) 1.3x10^3/uL (0.0-1.1) 1.6x10^3/uL (0.0-1.1) Eosinophils # (Auto) 0.0x10^3/uL (0.0-0.7) 0.0x10^3/uL (0.0-0.7) Basophils # (Auto) 0.1x10^3/uL (0.0-0.2) 0.0x10^3/uL (0.0-0.2) Segmented Neutrophils % 86% (35-66) Band Neutrophils % 2% (0-9) Lymphocytes % 6% (24-48) Monocytes % 5% (0-10) Basophils % 1% (0-3) Platelet Estimate Adequate (ADEQUATE) Sodium Level 136mmol/L (136-145) 141mmol/L (136-145) Potassium Level 3.5mmol/L (3.5-5.1) 4.1mmol/L (3.5-5.1) Chloride Level 98mmol/L (98-107) 103mmol/L (98-107) Carbon Dioxide Level 25mmol/L (21-32) 23mmol/L (21-32) Anion Gap 13 (6-14) 15 (6-14) Blood Urea Nitrogen 11mg/dL (8-26) 14mg/dL (8-26) Creatinine 1.2mg/dL (0.7-1.3) 1.2mg/dL (0.7-1.3) Estimated GFR (Cockcroft-Gault) 75.0 75.0 BUN/Creatinine Ratio 9 (6-20) 12 (6-20) Glucose Level 151mg/dL (70-99) 121mg/dL (70-99) Calcium Level 9.3mg/dL (8.5-10.1) 8.6mg/dL (8.5-10.1) Total Bilirubin 0.9mg/dL (0.2-1.0) 0.5mg/dL (0.2-1.0) Aspartate Amino Transf (AST/SGOT) 20U/L (15-37) 13U/L (15-37) Alanine Aminotransferase (ALT/SGPT) 36U/L (16-63) 21U/L (16-63) Alkaline Phosphatase 87U/L (46-116) 65U/L (46-116) Troponin I Quantitative < 0.017ng/mL (0.000-0.055) Total Protein 9.0g/dL (6.4-8.2) 7.4g/dL (6.4-8.2) Albumin 4.7g/dL (3.4-5.0) 3.6g/dL (3.4-5.0) Albumin/Globulin Ratio 1.1 (1.0-1.7) 0.9 (1.0-1.7) Lipase 70U/L (73-393) 57U/L (73-393) Ethyl Alcohol Level < 10mg/dL (0-10) Urine Collection Type Unknown Urine Color Yellow Urine Clarity Clear Urine pH 8.0 Urine Specific [place] <=1.005 Urine Protein Negativemg/dL (NEG-TRACE) Urine Glucose (UA) Negativemg/dL (NEG) Urine Ketones (Stick) Negativemg/dL (NEG) Urine Blood Moderate (NEG) Urine Nitrite Negative (NEG) Urine Bilirubin Negative (NEG) Urine Urobilinogen Dipstick 0.2mg/dL (0.2 mg/dL) Urine Leukocyte Esterase Negative (NEG) Urine RBC 11-20/HPF (0-2) Urine WBC 0/HPF (0-4) Urine Squamous Epithelial Cells Occ/LPF Urine Bacteria 0/HPF (0-FEW) Urine Mucus Slight/LPF Urine Opiates Screen Neg (NEG) Urine Methadone Screen Neg (NEG) Urine Barbiturates Neg (NEG) Urine Phencyclidine Screen Neg (NEG) Urine Amphetamine/Methamphetamine Neg (NEG) Urine Benzodiazepines Screen Neg (NEG) Urine Cocaine Screen Pos (NEG) Urine Cannabinoids Screen Neg (NEG) Urine Ethyl Alcohol Neg (NEG) Laboratory Tests Test 11/17/16 06:10 White Blood Count 15.4x10^3/uL (4.0-11.0) Red Blood Count 4.14x10^6/uL (4.30-5.70) Hemoglobin 12.2g/dL (13.0-17.5) Hematocrit 37.9% (39.0-53.0) Mean Corpuscular Volume 91fL (79-100) Mean Corpuscular Hemoglobin 30pg (25-35) Mean Corpuscular Hemoglobin Concent 32g/dL (31-37) Red Cell Distribution Width 13.2% (11.5-14.5) Platelet Count 230x10^3/uL (140-400) Neutrophils (%) (Auto) 79% (31-73) Lymphocytes (%) (Auto) 10% (24-48) Monocytes (%) (Auto) 11% (0-9) Eosinophils (%) (Auto) 0% (0-3) Basophils (%) (Auto) 0% (0-3) Neutrophils # (Auto) 12.2x10^3uL (1.8-7.7) Lymphocytes # (Auto) 1.5x10^3/uL (1.0-4.8) Monocytes # (Auto) 1.6x10^3/uL (0.0-1.1) Eosinophils # (Auto) 0.0x10^3/uL (0.0-0.7) Basophils # (Auto) 0.0x10^3/uL (0.0-0.2) Sodium Level 141mmol/L (136-145) Potassium Level 4.1mmol/L (3.5-5.1) Chloride Level 103mmol/L (98-107) Carbon Dioxide Level 23mmol/L (21-32) Anion Gap 15 (6-14) Blood Urea Nitrogen 14mg/dL (8-26) Creatinine 1.2mg/dL (0.7-1.3) Estimated GFR (Cockcroft-Gault) 75.0 BUN/Creatinine Ratio 12 (6-20) Glucose Level 121mg/dL (70-99) Calcium Level 8.6mg/dL (8.5-10.1) Total Bilirubin 0.5mg/dL (0.2-1.0) Aspartate Amino Transf (AST/SGOT) 13U/L (15-37) Alanine Aminotransferase (ALT/SGPT) 21U/L (16-63) Alkaline Phosphatase 65U/L (46-116) Total Protein 7.4g/dL (6.4-8.2) Albumin 3.6g/dL (3.4-5.0) Albumin/Globulin Ratio 0.9 (1.0-1.7) Medications Current Medications Sodium Chloride (Iv Sodium Chloride 0.9% 1000ml Bag) 1,000 ml @ 1,000 mls/hr Q1H IV Last administered on 11/15/16 23:53; Start 11/15/16 at 22:45; Stop 07/22 at 23:44; Status DC Ondansetron HCl (Zofran) 4 mg 1X ONCE IV Last administered on 11/15/16 23:53 ; Start 11/15/16 at 22:45; Stop 11/15/16 at 22:46; Status DC Iohexol (Omnipaque 300 Mg/ml) 75 ml 1X ONCE IV Last administered on 11/15/16 23:38; Start 11/15/16 at 23:45; Stop 11/15/16 at 23:46; Status DC Info (Do NOT chart on this entry -- for MONITORING) 1 each PRN DAILY PRN MC SEE COMMENTS; Start 11/15/16 at 23:30; Stop 11/17/16 at 23:29 Hydromorphone HCl (Dilaudid) 1 mg 1X ONCE IV Last administered on 11/16/16 01 :01; Start 11/16/16 at 01:00; Stop 11/16/16 at 01:01; Status DC Ondansetron HCl (Zofran) 4 mg PRN Q8HRS PRN IV NAUSEA/VOMITING Last administered on 11/16/16 10:04; Start 11/16/16 at 01:00; Stop 11/17/16 at 00:59 ; Status DC Fentanyl Citrate 50 mcg 50 mcg PRN Q2HR PRN IV SEVERE PAIN Last administered on 11/17/16 00:28; Start 11/16/16 at 01:00; Stop 11/17/16 at 00:59; Status DC Sodium Chloride (Iv Sodium Chloride 0.9% 1000ml Bag) 1,000 ml @ 125 mls/hr Q8H IV ; Start 11/16/16 at 00:56; Stop 11/17/16 at 00:55; Status DC Fentanyl Citrate (Fentanyl 2ml Vial) 50 mcg 1X ONCE IV ; Start 11/16/16 at 01: 30; Stop 11/16/16 at 01:31; Status DC Acetaminophen (Tylenol) 325 mg PRN Q6HRS PRN PO MILD PAIN / TEMP; Start at 10:00 Acetaminophen/ Hydrocodone Bitart (Lortab 5/325) 1 tab PRN Q6HRS PRN PO MODERATE TO SEVERE PAIN Last administered on 11/17/16 06:23; Start 11/16/16 at 10:00 Hydralazine HCl (Apresoline) 10 mg PRN Q4HRS PRN IVP ELEVATED BP, SEE COMMENTS Last administered on 11/17/16 00:28; Start 11/16/16 at 10:00 Ondansetron HCl (Zofran) 4 mg PRN Q8HRS PRN IV NAUSEA/VOMITING Last administered on 11/17/16 06:24; Start 11/16/16 at 10:00 Albuterol Sulfate 2.5 mg 2.5 mg PRN Q4HRS PRN NEB SHORTNESS OF BREATH; Start at 10:00 Sodium Chloride (Iv Sodium Chloride 0.9% 1000ml Bag) 1,000 ml @ 150 mls/hr Q6H40M IV Last administered on 11/16/16 23:20; Start 11/16/16 at 10:00; Stop 11/17/16 at 09:59; Status DC Amlodipine Besylate (Norvasc) 5 mg DAILY PO Last administered on 11/16/16 13: 58; Start 11/16/16 at 14:00 Phenytoin Sodium (Dilantin) 400 mg HS PO Last administered on 11/17/16 00:29; Start 11/16/16 at 21:00 Gabapentin (Neurontin) 900 mg TID PO Last administered on 11/16/16 13:58; Start 11/16/16 at 14:00 Famotidine (Pepcid) 20 mg BID PO ; Start 11/16/16 at 21:00 Enoxaparin Sodium (Lovenox 40mg Syringe) 40 mg Q24H SQ Last administered on 13:57; Start 11/16/16 at 15:00 Phenytoin Sodium (Dilantin) 30 mg QHS PO Last administered on 11/17/16 00:29; Start 11/16/16 at 21:00 Morphine Sulfate 2 mg PRN Q2HR PRN IV PAIN Last administered on 4/14/17at 12:34 ; Start 11/17/16 at 12:30 Active Scripts Active Reported Ranitidine Hcl 150 Mg Capsule 1 Cap PO BID Norvasc (Amlodipine Besylate) 5 Mg Tablet 5 Mg PO DAILY Dilantin (Phenytoin Sodium Extended) 100 Mg Capsule 430 Mg PO HS Gabapentin 300 Mg Capsule 900 Mg PO TID Vitals/I & O Vital Sign - Last 24 Hours 11/16/16 11/16/16 11/16/16 11/16/16 13:53 13:58 15:00 17:29 Temp 97.5 97.5 Pulse 96 71 Resp 17 B/P 159/100 136/68 Pulse Ox 92 O2 Delivery Room Air Room Air Room Air 11/16/16 11/16/16 11/16/16 11/16/16 18:56 19:20 19:50 21:42 Temp 98.9 98.9 Pulse 98 Resp 18 20 B/P 165/108 Pulse Ox 95 O2 Delivery Room Air Room Air Room Air Room Air 11/16/16 11/17/16 11/17/16 11/17/16 23:24 00:01 00:28 00:28 Temp 99.7 99.7 Pulse 103 103 Resp 18 22 B/P 171/117 171/117 Pulse Ox 99 O2 Delivery BiPAP/CPAP BiPAP/CPAP BiPAP/CPAP 11/17/16 11/17/16 11/17/16 11/17/16 03:14 03:35 06:23 07:00 Temp 99.3 99.4 99.3 99.4 Pulse 95 90 Resp 18 22 16 B/P 145/95 137/81 Pulse Ox 99 94 O2 Delivery BiPAP/CPAP BiPAP/CPAP Room Air BiPAP/CPAP 11/17/16 11/17/16 11/17/16 07:25 10:49 12:34 Temp 98.4 98.4 Pulse 83 Resp 20 B/P 147/103 Pulse Ox 94 93 93 O2 Delivery Room Air BiPAP/CPAP Room Air Intake and Output 11/16/16 11/16/16 11/17/16 14:59 22:59 06:59 Intake Total 0 ml 0 ml Output Total 250 ml Balance 0 ml -250 ml Problem List Problems Medical Problems: (1) Crack cocaine use Status: Acute (2) Dehydration Status: Acute (3) Intractable abdominal pain Status: Acute (4) Pancreatitis Status: Acute Assessment Acute pancreatitis- clinically and biochemically improving, medical therapy, will reassess Sunday CARLTON FLORENTINO MD Nov 17, 2016 12:49
[2016-11-17 14:26] VITALS: BP 135/95
[2016-11-17] MEDS: ENOXAPARIN 40 MG/0.4 ML SYRINGE. SQ SCH (16:38)
[2016-11-17 19:00] VITALS: BP 156/101
[2016-11-17 22:34] VITALS: BP 169/91
[2016-11-18] VITALS (7 sets, daily range): BP systolic 141–177; BP diastolic 70–96
[2016-11-18 06:39] LABS: CALCIUM 8.7 mg/dL (8.5-10.1); CREATININE 1.2 mg/dL (0.7-1.3)
[2016-11-18] MEDS: MORPHINE SULFATE 2 MG/ML DISP.SYRIN. IV PRN ×3 (06:42→17:48)
[2016-11-18] MEDS: AMLODIPINE BESYLATE 5 MG TABLET. PO SCH (09:01)
[2016-11-18] MEDS: GABAPENTIN 300 MG CAPSULE. PO SCH ×3 (09:01→20:48)
[2016-11-18] MEDS: FAMOTIDINE 20 MG TABLET. PO SCH ×2 (09:01→20:49)
--- NOTE | 2016-11-18 13:14 | PDOC ---
PROGRESS NOTES Chief Complaint Chief Complaint cc: abdominal pain A/P 1. Acute pancreatitis with prior history of pancreatitis. 2. Hypertension. stable. 3. Seizure history. 4. Sleep apnea. Plan pain control iv morphine IV hydration Clear liquid diet Labs reviewed, CPAP GI following History of Present Illness History of Present Illness pain not controlled. Vitals Vitals Vital Signs Date Time Temp Pulse Resp B/P Pulse Ox O2 Delivery O2 Flow Rate FiO2 11/18/16 11:00 98.2 81 18 153/82 96 Room Air 98.2 Physical Exam General: Alert, Oriented X3 Heart: Normal S1, Normal S2 Lungs: Clear Abdomen: Normal bowel sounds, Soft, No tenderness, Other Labs LABS Laboratory Tests Test 11/18/16 05:55 Sodium Level 143mmol/L (136-145) Potassium Level 4.0mmol/L (3.5-5.1) Chloride Level 106mmol/L (98-107) Carbon Dioxide Level 25mmol/L (21-32) Anion Gap 12 (6-14) Blood Urea Nitrogen 17mg/dL (8-26) Creatinine 1.2mg/dL (0.7-1.3) Estimated GFR (Cockcroft-Gault) 75.0 Glucose Level 93mg/dL (70-99) Calcium Level 8.7mg/dL (8.5-10.1) Assessment and Plan Assessmemt and Plan Problems Medical Problems: (1) Crack cocaine use Status: Acute (2) Dehydration Status: Acute (3) Intractable abdominal pain Status: Acute (4) Pancreatitis Status: Acute Problems: Comment Review of Relevant I have reviewed the following items tammy (where applicable) has been applied. Labs Laboratory Tests Test 11/17/16 06:10 11/18/16 05:55 White Blood Count 15.4x10^3/uL (4.0-11.0) Red Blood Count 4.14x10^6/uL (4.30-5.70) Hemoglobin 12.2g/dL (13.0-17.5) Hematocrit 37.9% (39.0-53.0) Mean Corpuscular Volume 91fL (79-100) Mean Corpuscular Hemoglobin 30pg (25-35) Mean Corpuscular Hemoglobin Concent 32g/dL (31-37) Red Cell Distribution Width 13.2% (11.5-14.5) Platelet Count 230x10^3/uL (140-400) Neutrophils (%) (Auto) 79% (31-73) Lymphocytes (%) (Auto) 10% (24-48) Monocytes (%) (Auto) 11% (0-9) Eosinophils (%) (Auto) 0% (0-3) Basophils (%) (Auto) 0% (0-3) Neutrophils # (Auto) 12.2x10^3uL (1.8-7.7) Lymphocytes # (Auto) 1.5x10^3/uL (1.0-4.8) Monocytes # (Auto) 1.6x10^3/uL (0.0-1.1) Eosinophils # (Auto) 0.0x10^3/uL (0.0-0.7) Basophils # (Auto) 0.0x10^3/uL (0.0-0.2) Sodium Level 141mmol/L (136-145) 143mmol/L (136-145) Potassium Level 4.1mmol/L (3.5-5.1) 4.0mmol/L (3.5-5.1) Chloride Level 103mmol/L (98-107) 106mmol/L (98-107) Carbon Dioxide Level 23mmol/L (21-32) 25mmol/L (21-32) Anion Gap 15 (6-14) 12 (6-14) Blood Urea Nitrogen 14mg/dL (8-26) 17mg/dL (8-26) Creatinine 1.2mg/dL (0.7-1.3) 1.2mg/dL (0.7-1.3) Estimated GFR (Cockcroft-Gault) 75.0 75.0 BUN/Creatinine Ratio 12 (6-20) Glucose Level 121mg/dL (70-99) 93mg/dL (70-99) Calcium Level 8.6mg/dL (8.5-10.1) 8.7mg/dL (8.5-10.1) Total Bilirubin 0.5mg/dL (0.2-1.0) Aspartate Amino Transf (AST/SGOT) 13U/L (15-37) Alanine Aminotransferase (ALT/SGPT) 21U/L (16-63) Alkaline Phosphatase 65U/L (46-116) Total Protein 7.4g/dL (6.4-8.2) Albumin 3.6g/dL (3.4-5.0) Albumin/Globulin Ratio 0.9 (1.0-1.7) Laboratory Tests Test 11/18/16 05:55 Sodium Level 143mmol/L (136-145) Potassium Level 4.0mmol/L (3.5-5.1) Chloride Level 106mmol/L (98-107) Carbon Dioxide Level 25mmol/L (21-32) Anion Gap 12 (6-14) Blood Urea Nitrogen 17mg/dL (8-26) Creatinine 1.2mg/dL (0.7-1.3) Estimated GFR (Cockcroft-Gault) 75.0 Glucose Level 93mg/dL (70-99) Calcium Level 8.7mg/dL (8.5-10.1) Medications Current Medications Sodium Chloride (Iv Sodium Chloride 0.9% 1000ml Bag) 1,000 ml @ 1,000 mls/hr Q1H IV Last administered on 11/15/16 23:53; Start 11/15/16 at 22:45; Stop 07/22 at 23:44; Status DC Ondansetron HCl (Zofran) 4 mg 1X ONCE IV Last administered on 11/15/16 23:53 ; Start 11/15/16 at 22:45; Stop 11/15/16 at 22:46; Status DC Iohexol (Omnipaque 300 Mg/ml) 75 ml 1X ONCE IV Last administered on 11/15/16 23:38; Start 11/15/16 at 23:45; Stop 11/15/16 at 23:46; Status DC Info (Do NOT chart on this entry -- for MONITORING) 1 each PRN DAILY PRN MC SEE COMMENTS; Start 11/15/16 at 23:30; Stop 11/17/16 at 23:29; Status DC Hydromorphone HCl (Dilaudid) 1 mg 1X ONCE IV Last administered on 11/16/16 01 :01; Start 11/16/16 at 01:00; Stop 11/16/16 at 01:01; Status DC Ondansetron HCl (Zofran) 4 mg PRN Q8HRS PRN IV NAUSEA/VOMITING Last administered on 11/16/16 10:04; Start 11/16/16 at 01:00; Stop 11/17/16 at 00:59 ; Status DC Fentanyl Citrate 50 mcg 50 mcg PRN Q2HR PRN IV SEVERE PAIN Last administered on 11/17/16 00:28; Start 11/16/16 at 01:00; Stop 11/17/16 at 00:59; Status DC Sodium Chloride (Iv Sodium Chloride 0.9% 1000ml Bag) 1,000 ml @ 125 mls/hr Q8H IV ; Start 11/16/16 at 00:56; Stop 11/17/16 at 00:55; Status DC Fentanyl Citrate (Fentanyl 2ml Vial) 50 mcg 1X ONCE IV ; Start 11/16/16 at 01: 30; Stop 11/16/16 at 01:31; Status DC Acetaminophen (Tylenol) 325 mg PRN Q6HRS PRN PO MILD PAIN / TEMP; Start at 10:00 Acetaminophen/ Hydrocodone Bitart (Lortab 5/325) 1 tab PRN Q6HRS PRN PO MODERATE TO SEVERE PAIN Last administered on 11/17/16 06:23; Start 11/16/16 at 10:00 Hydralazine HCl (Apresoline) 10 mg PRN Q4HRS PRN IVP ELEVATED BP, SEE COMMENTS Last administered on 11/17/16 00:28; Start 11/16/16 at 10:00 Ondansetron HCl (Zofran) 4 mg PRN Q8HRS PRN IV NAUSEA/VOMITING Last administered on 11/17/16 06:24; Start 11/16/16 at 10:00 Albuterol Sulfate 2.5 mg 2.5 mg PRN Q4HRS PRN NEB SHORTNESS OF BREATH; Start at 10:00 Sodium Chloride (Iv Sodium Chloride 0.9% 1000ml Bag) 1,000 ml @ 150 mls/hr Q6H40M IV Last administered on 11/17/16 06:00; Start 11/16/16 at 10:00; Stop 11/17/16 at 09:59; Status DC Amlodipine Besylate (Norvasc) 5 mg DAILY PO Last administered on 11/18/16 09: 01; Start 11/16/16 at 14:00 Phenytoin Sodium (Dilantin) 400 mg HS PO Last administered on 11/17/16 21:38; Start 11/16/16 at 21:00 Gabapentin (Neurontin) 900 mg TID PO Last administered on 11/18/16 09:01; Start 11/16/16 at 14:00 Famotidine (Pepcid) 20 mg BID PO Last administered on 11/18/16 09:01; Start at 21:00 Enoxaparin Sodium (Lovenox 40mg Syringe) 40 mg Q24H SQ Last administered on 16:38; Start 11/16/16 at 15:00 Phenytoin Sodium (Dilantin) 30 mg QHS PO Last administered on 11/17/16 21:38; Start 11/16/16 at 21:00 Morphine Sulfate 2 mg PRN Q2HR PRN IV PAIN Last administered on 11/18/16 09:35 ; Start 11/17/16 at 12:30 Active Scripts Active Reported Ranitidine Hcl 150 Mg Capsule 1 Cap PO BID Norvasc (Amlodipine Besylate) 5 Mg Tablet 5 Mg PO DAILY Dilantin (Phenytoin Sodium Extended) 100 Mg Capsule 430 Mg PO HS Gabapentin 300 Mg Capsule 900 Mg PO TID Vitals/I & O Vital Sign - Last 24 Hours 11/17/16 11/17/16 11/17/16 11/17/16 14:26 17:22 17:55 19:00 Temp 98.9 98.1 98.9 98.1 Pulse 80 83 Resp 18 18 B/P 135/95 156/101 Pulse Ox 95 95 95 94 O2 Delivery BiPAP/CPAP Room Air Room Air 11/17/16 11/17/16 11/17/16 11/17/16 20:10 20:10 20:40 22:10 Resp 18 17 Pulse Ox 94 O2 Delivery Room Air Room Air Room Air BiPAP/CPAP 11/17/16 11/18/16 11/18/16 11/18/16 22:34 02:18 02:33 03:01 Temp 98.9 98.2 98.9 98.2 Pulse 87 68 73 Resp 18 15 B/P 169/91 177/87 147/94 Pulse Ox 96 97 O2 Delivery Room Air BiPAP/CPAP BiPAP/CPAP 11/18/16 11/18/16 11/18/1611/18/17 06:42 07:00 09:01 11:00 Temp 98.7 98.2 98.7 98.2 Pulse 83 83 81 Resp 22 17 18 B/P 156/96 156/96 153/82 Pulse Ox 95 96 O2 Delivery BiPAP/CPAP Room Air Room Air Intake and Output 11/17/16 11/17/16 11/18/16 15:00 23:00 07:00 Intake Total 100 ml Output Total 750 ml Balance -650 ml JULIA MICHAUD MD Nov 18, 2016 13:14
[2016-11-18] MEDS: IV NORMAL SALINE 1000ML BAG 1,000 ML IV SCH (13:30)
[2016-11-18] MEDS: ENOXAPARIN 40 MG/0.4 ML SYRINGE. SQ SCH (14:12)
[2016-11-18] MEDS: PHENYTOIN SODIUM EXTENDED 100 MG CAPSULE PO SCH (20:47)
[2016-11-18] MEDS: PHENYTOIN SODIUM EXTENDED 30 MG CAPSULE. PO SCH (20:48)
[2016-11-18] MEDS: HYDROCODONE/APAP 5/325MG TABLET. PO PRN (20:49)
[2016-11-19] MEDS: IV NORMAL SALINE 1000ML BAG 1,000 ML IV SCH ×3 (04:03→20:53)
[2016-11-19 05:16] LABS: CALCIUM 8.3 mg/dL (8.5-10.1); GFR 92.5; POTASSIUM 3.5 mmol/L (3.5-5.1)
[2016-11-19] MEDS: HYDROCODONE/APAP 5/325MG TABLET. PO PRN ×2 (06:37→16:38)
[2016-11-19 07:00] VITALS: BP 136/66
[2016-11-19] MEDS: FAMOTIDINE 20 MG TABLET. PO SCH ×2 (09:09→21:48)
[2016-11-19] MEDS: GABAPENTIN 300 MG CAPSULE. PO SCH ×3 (09:09→21:48)
[2016-11-19] MEDS: AMLODIPINE BESYLATE 5 MG TABLET. PO SCH (09:09)
[2016-11-19 11:00] VITALS: BP 159/76
--- NOTE | 2016-11-19 11:27 | PDOC ---
PROGRESS NOTES Chief Complaint Chief Complaint cc: abdominal pain A/P 1. Acute pancreatitis with prior history of pancreatitis. 2. Hypertension. stable. 3. Seizure history. 4. Sleep apnea. Plan pain control iv morphine IV hydration Clear liquid diet , don't advance diet if pain persists Labs reviewed, CPAP GI following History of Present Illness History of Present Illness pain not controlled. Vitals Vitals Vital Signs Date Time Temp Pulse Resp B/P Pulse Ox O2 Delivery O2 Flow Rate FiO2 11/19/16 09:09 71 161/85 11/19/16 07:00 98.1 20 96 Room Air 98.1 Physical Exam General: Alert, Oriented X3, Cooperative Heart: Normal S1, Normal S2 Lungs: Clear Abdomen: Normal bowel sounds, Soft, No tenderness, Other Labs LABS Laboratory Tests Test 11/19/16 04:00 Sodium Level 143mmol/L (136-145) Potassium Level 3.5mmol/L (3.5-5.1) Chloride Level 105mmol/L (98-107) Carbon Dioxide Level 26mmol/L (21-32) Anion Gap 12 (6-14) Blood Urea Nitrogen 11mg/dL (8-26) Creatinine 1.0mg/dL (0.7-1.3) Estimated GFR (Cockcroft-Gault) 92.5 Glucose Level 116mg/dL (70-99) Calcium Level 8.3mg/dL (8.5-10.1) Assessment and Plan Assessmemt and Plan Problems Medical Problems: (1) Crack cocaine use Status: Acute (2) Dehydration Status: Acute (3) Intractable abdominal pain Status: Acute (4) Pancreatitis Status: Acute Problems: Comment Review of Relevant I have reviewed the following items tammy (where applicable) has been applied. Labs Laboratory Tests Test 11/18/16 05:55 11/19/16 04:00 Sodium Level 143mmol/L (136-145) 143mmol/L (136-145) Potassium Level 4.0mmol/L (3.5-5.1) 3.5mmol/L (3.5-5.1) Chloride Level 106mmol/L (98-107) 105mmol/L (98-107) Carbon Dioxide Level 25mmol/L (21-32) 26mmol/L (21-32) Anion Gap 12 (6-14) 12 (6-14) Blood Urea Nitrogen 17mg/dL (8-26) 11mg/dL (8-26) Creatinine 1.2mg/dL (0.7-1.3) 1.0mg/dL (0.7-1.3) Estimated GFR (Cockcroft-Gault) 75.0 92.5 Glucose Level 93mg/dL (70-99) 116mg/dL (70-99) Calcium Level 8.7mg/dL (8.5-10.1) 8.3mg/dL (8.5-10.1) Laboratory Tests Test 11/19/16 04:00 Sodium Level 143mmol/L (136-145) Potassium Level 3.5mmol/L (3.5-5.1) Chloride Level 105mmol/L (98-107) Carbon Dioxide Level 26mmol/L (21-32) Anion Gap 12 (6-14) Blood Urea Nitrogen 11mg/dL (8-26) Creatinine 1.0mg/dL (0.7-1.3) Estimated GFR (Cockcroft-Gault) 92.5 Glucose Level 116mg/dL (70-99) Calcium Level 8.3mg/dL (8.5-10.1) Medications Current Medications Sodium Chloride (Iv Sodium Chloride 0.9% 1000ml Bag) 1,000 ml @ 1,000 mls/hr Q1H IV Last administered on 11/15/16 23:53; Start 11/15/16 at 22:45; Stop 07/22 at 23:44; Status DC Ondansetron HCl (Zofran) 4 mg 1X ONCE IV Last administered on 11/15/16 23:53 ; Start 11/15/16 at 22:45; Stop 11/15/16 at 22:46; Status DC Iohexol (Omnipaque 300 Mg/ml) 75 ml 1X ONCE IV Last administered on 11/15/16 23:38; Start 11/15/16 at 23:45; Stop 11/15/16 at 23:46; Status DC Info (Do NOT chart on this entry -- for MONITORING) 1 each PRN DAILY PRN MC SEE COMMENTS; Start 11/15/16 at 23:30; Stop 11/17/16 at 23:29; Status DC Hydromorphone HCl (Dilaudid) 1 mg 1X ONCE IV Last administered on 11/16/16 01 :01; Start 11/16/16 at 01:00; Stop 11/16/16 at 01:01; Status DC Ondansetron HCl (Zofran) 4 mg PRN Q8HRS PRN IV NAUSEA/VOMITING Last administered on 11/16/16 10:04; Start 11/16/16 at 01:00; Stop 11/17/16 at 00:59 ; Status DC Fentanyl Citrate 50 mcg 50 mcg PRN Q2HR PRN IV SEVERE PAIN Last administered on 11/17/16 00:28; Start 11/16/16 at 01:00; Stop 11/17/16 at 00:59; Status DC Sodium Chloride (Iv Sodium Chloride 0.9% 1000ml Bag) 1,000 ml @ 125 mls/hr Q8H IV ; Start 11/16/16 at 00:56; Stop 11/17/16 at 00:55; Status DC Fentanyl Citrate (Fentanyl 2ml Vial) 50 mcg 1X ONCE IV ; Start 11/16/16 at 01: 30; Stop 11/16/16 at 01:31; Status DC Acetaminophen (Tylenol) 325 mg PRN Q6HRS PRN PO MILD PAIN / TEMP; Start at 10:00 Acetaminophen/ Hydrocodone Bitart (Lortab 5/325) 1 tab PRN Q6HRS PRN PO MODERATE TO SEVERE PAIN Last administered on 11/19/16 06:37; Start 11/16/16 at 10:00 Hydralazine HCl (Apresoline) 10 mg PRN Q4HRS PRN IVP ELEVATED BP, SEE COMMENTS Last administered on 11/17/16 00:28; Start 11/16/16 at 10:00 Ondansetron HCl (Zofran) 4 mg PRN Q8HRS PRN IV NAUSEA/VOMITING Last administered on 11/17/16 06:24; Start 11/16/16 at 10:00 Albuterol Sulfate 2.5 mg 2.5 mg PRN Q4HRS PRN NEB SHORTNESS OF BREATH; Start at 10:00 Sodium Chloride (Iv Sodium Chloride 0.9% 1000ml Bag) 1,000 ml @ 150 mls/hr Q6H40M IV Last administered on 11/17/16 06:00; Start 11/16/16 at 10:00; Stop 11/17/16 at 09:59; Status DC Amlodipine Besylate (Norvasc) 5 mg DAILY PO Last administered on 11/19/16 09: 09; Start 11/16/16 at 14:00 Phenytoin Sodium (Dilantin) 400 mg HS PO Last administered on 11/18/16 20:47; Start 11/16/16 at 21:00 Gabapentin (Neurontin) 900 mg TID PO Last administered on 11/19/16 09:09; Start 11/16/16 at 14:00 Famotidine (Pepcid) 20 mg BID PO Last administered on 11/19/16 09:09; Start at 21:00 Enoxaparin Sodium (Lovenox 40mg Syringe) 40 mg Q24H SQ Last administered on 14:12; Start 11/16/16 at 15:00 Phenytoin Sodium (Dilantin) 30 mg QHS PO Last administered on 11/18/16 20:48; Start 11/16/16 at 21:00 Morphine Sulfate 2 mg 2 mg PRN Q2HR PRN IV PAIN Last administered on 11/18/16 17:48; Start 11/17/16 at 12:30 Sodium Chloride (Iv Sodium Chloride 0.9% 1000ml Bag) 1,000 ml @ 75 mls/hr [id number] IV Last administered on 11/19/16 04:03; Start 11/18/16 at 13:15 Active Scripts Active Reported Ranitidine Hcl 150 Mg Capsule 1 Cap PO BID Norvasc (Amlodipine Besylate) 5 Mg Tablet 5 Mg PO DAILY Dilantin (Phenytoin Sodium Extended) 100 Mg Capsule 430 Mg PO HS Gabapentin 300 Mg Capsule 900 Mg PO TID Vitals/I & O Vital Sign - Last 24 Hours 11/18/16 11/18/16 11/18/16 11/18/16 15:01 19:00 20:49 21:50 Temp 97.9 97.8 97.9 97.8 Pulse 111 83 Resp 18 17 17 B/P 161/85 170/95 Pulse Ox 95 97 97 97 O2 Delivery Room Air Room Air Room Air Room Air 11/18/16 11/18/16 11/19/16 11/19/16 22:59 23:04 01:22 02:37 Temp 97.0 97.0 Pulse 71 Resp 18 B/P 161/85 Pulse Ox 96 99 O2 Delivery Room Air BiPAP/CPAP BiPAP/CPAP BiPAP/CPAP 11/19/16 11/19/16 11/19/16 11/19/16 04:54 06:37 07:00 09:09 Temp 98.1 98.1 Pulse 78 71 Resp 16 20 B/P 136/66 161/85 Pulse Ox 99 99 96 O2 Delivery BiPAP/CPAP Room Air Room Air Intake and Output 11/18/16 11/18/16 11/19/16 15:00 23:00 07:00 Intake Total 460 ml Output Total 300 ml 300 ml Balance 160 ml -300 ml JULIA MICHAUD MD Nov 19, 2016 11:27
[2016-11-19] MEDS: ENOXAPARIN 40 MG/0.4 ML SYRINGE. SQ SCH (14:22)
[2016-11-19 15:00] VITALS: BP 140/77
[2016-11-19 19:00] VITALS: BP 134/84
[2016-11-19] MEDS: NITROGLYCERIN SUBLINGUAL 0.4 MG BOTTLE OF 25. SL PRN ×3 (20:19→20:56)
[2016-11-19] MEDS: MORPHINE SULFATE 2 MG/ML DISP.SYRIN. IV PRN (20:48)
[2016-11-19 21:06] LABS: BASO % 1 % (0-3); EOS % 5 % (0-3); HEMATOCRIT 31.4 % (39.0-53.0); HEMOGLOBIN 10.5 g/dL (13.0-17.5); LYMPH # 1.8 x10^3/uL (1.0-4.8); LYMPH % 34 % (24-48); MEAN CORPUSCULAR HEMOGLOBIN 30 pg (25-35); MEAN CORPUSCULAR HGB CONC 33 g/dL (31-37); MEAN CORPUSCULAR VOLUME 90 fL (79-100); MONO % 14 % (0-9); NEUT % 47 % (31-73); PLATELET COUNT 238 x10^3/uL (140-400); RED CELL DISTRIBUTION WIDTH 13.1 % (11.5-14.5); WHITE BLOOD COUNT 5.3 x10^3/uL (4.0-11.0)
[2016-11-19 21:17] LABS: CALCIUM 8.3 mg/dL (8.5-10.1); GFR 92.5; POTASSIUM 3.5 mmol/L (3.5-5.1)
[2016-11-19 21:23] LABS: ALBUMIN 2.8 g/dL (3.4-5.0); ALBUMIN/GLOBULIN RATIO 0.7 (1.0-1.7); TOTAL BILIRUBIN 0.2 mg/dL (0.2-1.0); TOTAL PROTEIN 6.9 g/dL (6.4-8.2)
[2016-11-19 21:31] LABS: CKMB MASS < 0.5 ng/mL (0.0-3.6); CREATINE KINASE 122 U/L (39-308)
[2016-11-19] MEDS: PHENYTOIN SODIUM EXTENDED 100 MG CAPSULE PO SCH (21:47)
[2016-11-19] MEDS: PHENYTOIN SODIUM EXTENDED 30 MG CAPSULE. PO SCH (21:47)
[2016-11-19 23:00] VITALS: BP 150/86
[2016-11-20] MEDS: HYDROCODONE/APAP 5/325MG TABLET. PO PRN ×3 (00:15→21:34)
[2016-11-20 05:08] LABS: CALCIUM 8.4 mg/dL (8.5-10.1); CREATININE 0.9 mg/dL (0.7-1.3); GFR 104.5; POTASSIUM 3.2 mmol/L (3.5-5.1)
--- NOTE | 2016-11-20 06:03 | EKG ---
[facility] [address] [place] [address] Test Date: 1999[birth year]08-30 Test Time: 06:37:09 Pat Name: ANUSHKA PEREIRA Department: Room: 563 1 Gender: M Community Leader: JULIO CESAR : 1955 Requested By: JACKSON FRANK Order Number: [id number] Reading MD: Willie Spaulding Measurements Intervals [place] Rate: 71 P: 25 IA: 198 QRS: -14 QRSD: 78 T: 7 QT: 370 QTc: 407 Interpretive Statements SINUS RHYTHM Electronically Signed On 11-20-2016 9:16:51 CDT by Willie Spaulding
[2016-11-20 07:00] VITALS: BP 146/85
[2016-11-20] MEDS ORDERED: MAGNESIUM SULFATE 2GM 50 ML IV ONE (09:45)
[2016-11-20] MEDS ORDERED: POTASSIUM CL 20MEQ D5-0.45NACL 1,000 ML IV SCH (09:45)
[2016-11-20] MEDS: GABAPENTIN 300 MG CAPSULE. PO SCH ×3 (10:24→21:29)
[2016-11-20] MEDS: AMLODIPINE BESYLATE 5 MG TABLET. PO SCH (10:25)
[2016-11-20] MEDS: FAMOTIDINE 20 MG TABLET. PO SCH ×2 (10:25→21:29)
[2016-11-20 11:15] VITALS: BP 145/94
--- NOTE | 2016-11-20 11:33 | PDOC ---
G I PROGRESS NOTE Reason for Follow-up Pancreatitis Subjective Abd pain persist Physical Exam Lungs clear CV S1 S2 Abd +BS, soft, mild tenderness Review of Relevant I have reviewed the following items tammy (where applicable) has been applied. Labs Laboratory Tests Test 11/19/16 04:00 11/19/16 20:48 11/20/16 03:15 Sodium Level 143mmol/L (136-145) 144mmol/L (136-145) 144mmol/L (136-145) Potassium Level 3.5mmol/L (3.5-5.1) 3.5mmol/L (3.5-5.1) 3.2mmol/L (3.5-5.1) Chloride Level 105mmol/L (98-107) 106mmol/L (98-107) 107mmol/L (98-107) Carbon Dioxide Level 26mmol/L (21-32) 28mmol/L (21-32) 27mmol/L (21-32) Anion Gap 12 (6-14) 10 (6-14) 10 (6-14) Blood Urea Nitrogen 11mg/dL (8-26) 8mg/dL (8-26) 7mg/dL (8-26) Creatinine 1.0mg/dL (0.7-1.3) 1.0mg/dL (0.7-1.3) 0.9mg/dL (0.7-1.3) Estimated GFR (Cockcroft-Gault) 92.5 92.5 104.5 Glucose Level 116mg/dL (70-99) 85mg/dL (70-99) 98mg/dL (70-99) Calcium Level 8.3mg/dL (8.5-10.1) 8.3mg/dL (8.5-10.1) 8.4mg/dL (8.5-10.1) White Blood Count 5.3x10^3/uL (4.0-11.0) Red Blood Count 3.50x10^6/uL (4.30-5.70) Hemoglobin 10.5g/dL (13.0-17.5) Hematocrit 31.4% (39.0-53.0) Mean Corpuscular Volume 90fL (79-100) Mean Corpuscular Hemoglobin 30pg (25-35) Mean Corpuscular Hemoglobin Concent 33g/dL (31-37) Red Cell Distribution Width 13.1% (11.5-14.5) Platelet Count 238x10^3/uL (140-400) Neutrophils (%) (Auto) 47% (31-73) Lymphocytes (%) (Auto) 34% (24-48) Monocytes (%) (Auto) 14% (0-9) Eosinophils (%) (Auto) 5% (0-3) Basophils (%) (Auto) 1% (0-3) Neutrophils # (Auto) 2.5x10^3uL (1.8-7.7) Lymphocytes # (Auto) 1.8x10^3/uL (1.0-4.8) Monocytes # (Auto) 0.7x10^3/uL (0.0-1.1) Eosinophils # (Auto) 0.3x10^3/uL (0.0-0.7) Basophils # (Auto) 0.0x10^3/uL (0.0-0.2) BUN/Creatinine Ratio 8 (6-20) Total Bilirubin 0.2mg/dL (0.2-1.0) Aspartate Amino Transf (AST/SGOT) 24U/L (15-37) Alanine Aminotransferase (ALT/SGPT) 27U/L (16-63) Alkaline Phosphatase 54U/L (46-116) Creatine Kinase 122U/L (39-308) Creatine Kinase MB (Mass) < 0.5ng/mL (0.0-3.6) Creatine Kinase MB Relative Index % (0-4) Troponin I Quantitative < 0.017ng/mL (0.000-0.055) Total Protein 6.9g/dL (6.4-8.2) Albumin 2.8g/dL (3.4-5.0) Albumin/Globulin Ratio 0.7 (1.0-1.7) Amylase Level 53U/L (25-115) Lipase 59U/L (73-393) Laboratory Tests Test 11/19/16 20:48 11/20/16 03:15 White Blood Count 5.3x10^3/uL (4.0-11.0) Red Blood Count 3.50x10^6/uL (4.30-5.70) Hemoglobin 10.5g/dL (13.0-17.5) Hematocrit 31.4% (39.0-53.0) Mean Corpuscular Volume 90fL (79-100) Mean Corpuscular Hemoglobin 30pg (25-35) Mean Corpuscular Hemoglobin Concent 33g/dL (31-37) Red Cell Distribution Width 13.1% (11.5-14.5) Platelet Count 238x10^3/uL (140-400) Neutrophils (%) (Auto) 47% (31-73) Lymphocytes (%) (Auto) 34% (24-48) Monocytes (%) (Auto) 14% (0-9) Eosinophils (%) (Auto) 5% (0-3) Basophils (%) (Auto) 1% (0-3) Neutrophils # (Auto) 2.5x10^3uL (1.8-7.7) Lymphocytes # (Auto) 1.8x10^3/uL (1.0-4.8) Monocytes # (Auto) 0.7x10^3/uL (0.0-1.1) Eosinophils # (Auto) 0.3x10^3/uL (0.0-0.7) Basophils # (Auto) 0.0x10^3/uL (0.0-0.2) Sodium Level 144mmol/L (136-145) 144mmol/L (136-145) Potassium Level 3.5mmol/L (3.5-5.1) 3.2mmol/L (3.5-5.1) Chloride Level 106mmol/L (98-107) 107mmol/L (98-107) Carbon Dioxide Level 28mmol/L (21-32) 27mmol/L (21-32) Anion Gap 10 (6-14) 10 (6-14) Blood Urea Nitrogen 8mg/dL (8-26) 7mg/dL (8-26) Creatinine 1.0mg/dL (0.7-1.3) 0.9mg/dL (0.7-1.3) Estimated GFR (Cockcroft-Gault) 92.5 104.5 BUN/Creatinine Ratio 8 (6-20) Glucose Level 85mg/dL (70-99) 98mg/dL (70-99) Calcium Level 8.3mg/dL (8.5-10.1) 8.4mg/dL (8.5-10.1) Total Bilirubin 0.2mg/dL (0.2-1.0) Aspartate Amino Transf (AST/SGOT) 24U/L (15-37) Alanine Aminotransferase (ALT/SGPT) 27U/L (16-63) Alkaline Phosphatase 54U/L (46-116) Creatine Kinase 122U/L (39-308) Creatine Kinase MB (Mass) < 0.5ng/mL (0.0-3.6) Creatine Kinase MB Relative Index % (0-4) Troponin I Quantitative < 0.017ng/mL (0.000-0.055) Total Protein 6.9g/dL (6.4-8.2) Albumin 2.8g/dL (3.4-5.0) Albumin/Globulin Ratio 0.7 (1.0-1.7) Amylase Level 53U/L (25-115) Lipase 59U/L (73-393) Medications Current Medications Sodium Chloride (Iv Sodium Chloride 0.9% 1000ml Bag) 1,000 ml @ 1,000 mls/hr Q1H IV Last administered on 11/15/16 23:53; Start 11/15/16 at 22:45; Stop 07/22 at 23:44; Status DC Ondansetron HCl (Zofran) 4 mg 1X ONCE IV Last administered on 11/15/16 23:53 ; Start 11/15/16 at 22:45; Stop 11/15/16 at 22:46; Status DC Iohexol (Omnipaque 300 Mg/ml) 75 ml 1X ONCE IV Last administered on 11/15/16 23:38; Start 11/15/16 at 23:45; Stop 11/15/16 at 23:46; Status DC Info (Do NOT chart on this entry -- for MONITORING) 1 each PRN DAILY PRN MC SEE COMMENTS; Start 11/15/16 at 23:30; Stop 11/17/16 at 23:29; Status DC Hydromorphone HCl (Dilaudid) 1 mg 1X ONCE IV Last administered on 11/16/16 01 :01; Start 11/16/16 at 01:00; Stop 11/16/16 at 01:01; Status DC Ondansetron HCl (Zofran) 4 mg PRN Q8HRS PRN IV NAUSEA/VOMITING Last administered on 11/16/16 10:04; Start 11/16/16 at 01:00; Stop 11/17/16 at 00:59 ; Status DC Fentanyl Citrate 50 mcg 50 mcg PRN Q2HR PRN IV SEVERE PAIN Last administered on 11/17/16 00:28; Start 11/16/16 at 01:00; Stop 11/17/16 at 00:59; Status DC Sodium Chloride (Iv Sodium Chloride 0.9% 1000ml Bag) 1,000 ml @ 125 mls/hr Q8H IV ; Start 11/16/16 at 00:56; Stop 11/17/16 at 00:55; Status DC Fentanyl Citrate (Fentanyl 2ml Vial) 50 mcg 1X ONCE IV ; Start 11/16/16 at 01: 30; Stop 11/16/16 at 01:31; Status DC Acetaminophen (Tylenol) 325 mg PRN Q6HRS PRN PO MILD PAIN / TEMP; Start at 10:00 Acetaminophen/ Hydrocodone Bitart (Lortab 5/325) 1 tab PRN Q6HRS PRN PO MODERATE TO SEVERE PAIN Last administered on 11/20/16 10:31; Start 11/16/16 at 10:00 Hydralazine HCl (Apresoline) 10 mg PRN Q4HRS PRN IVP ELEVATED BP, SEE COMMENTS Last administered on 11/17/16 00:28; Start 11/16/16 at 10:00 Ondansetron HCl (Zofran) 4 mg PRN Q8HRS PRN IV NAUSEA/VOMITING Last administered on 11/17/16 06:24; Start 11/16/16 at 10:00 Albuterol Sulfate 2.5 mg 2.5 mg PRN Q4HRS PRN NEB SHORTNESS OF BREATH; Start at 10:00 Sodium Chloride (Iv Sodium Chloride 0.9% 1000ml Bag) 1,000 ml @ 150 mls/hr [id number] IV Last administered on 11/17/16 06:00; Start 11/16/16 at 10:00; Stop 11/17/16 at 09:59; Status DC Amlodipine Besylate (Norvasc) 5 mg DAILY PO Last administered on 11/20/16 10: 25; Start 11/16/16 at 14:00 Phenytoin Sodium (Dilantin) 400 mg HS PO Last administered on 11/19/16 21:47; Start 11/16/16 at 21:00 Gabapentin (Neurontin) 900 mg TID PO Last administered on 11/20/16 10:24; Start 11/16/16 at 14:00 Famotidine (Pepcid) 20 mg BID PO Last administered on 11/20/16 10:25; Start at 21:00 Enoxaparin Sodium (Lovenox 40mg Syringe) 40 mg Q24H SQ Last administered on 14:22; Start 11/16/16 at 15:00 Phenytoin Sodium (Dilantin) 30 mg QHS PO Last administered on 11/19/16 21:47; Start 11/16/16 at 21:00 Morphine Sulfate 2 mg 2 mg PRN Q2HR PRN IV PAIN Last administered on 11/19/16 20:48; Start 11/17/16 at 12:30 Sodium Chloride (Iv Sodium Chloride 0.9% 1000ml Bag) 1,000 ml @ 75 mls/hr [id number] IV Last administered on 11/19/16 20:53; Start 11/18/16 at 13:15; Stop 11/20/16 at 09:33; Status DC Nitroglycerin 0.4 mg 0.4 mg PRN Q5MIN PRN SL CHEST PAIN Last administered on 20:56; Start 11/19/16 at 20:15 Potassium Chloride/Dextrose/ Sod Cl 1,000 ml @ 80 mls/hr [id number] IV Last administered on 11/20/16 10:20; Start 11/20/16 at 09:45 Magnesium Sulfate/ Dextrose (Magnesium Sulfate PREMIX 2GM) 50 ml @ 25 mls/hr 1X ONCE IV ; Start 11/20/16 at 09:45; Stop 11/20/16 at 11:44 Active Scripts Active Reported Ranitidine Hcl 150 Mg Capsule 1 Cap PO BID Norvasc (Amlodipine Besylate) 5 Mg Tablet 5 Mg PO DAILY Dilantin (Phenytoin Sodium Extended) 100 Mg Capsule 430 Mg PO HS Gabapentin 300 Mg Capsule 900 Mg PO TID Vitals/I & O Vital Sign - Last 24 Hours 11/19/16 11/19/16 11/19/16 11/19/16 15:00 19:00 20:19 20:46 Temp 98.2 98.4 98.2 98.4 Pulse 65 74 70 69 Resp 20 18 B/P 140/77 134/84 139/85 149/79 Pulse Ox 97 99 O2 Delivery Room Air 11/19/16 11/19/16 11/19/16 11/19/16 20:48 20:56 21:49 23:00 Temp 98.3 98.3 Pulse 73 64 Resp 18 B/P 134/72 150/86 Pulse Ox 97 97 96 O2 Delivery Room Air Room Air 11/20/16 11/20/16 11/20/16 11/20/16 00:15 00:43 01:22 03:00 Resp 16 16 B/P Pulse Ox 97 100 100 O2 Delivery Room Air BiPAP/CPAP Room Air 11/20/16 11/20/16 11/20/16 11/20/16 07:00 10:25 10:31 11:15 Temp 98.1 98.0 98.1 98.0 Pulse 66 66 59 Resp 18 18 B/P 146/85 146/85 145/94 Pulse Ox 95 97 O2 Delivery Room Air Room Air Room Air Intake and Output 11/19/16 11/19/16 11/20/16 14:59 22:59 06:59 Intake Total 440 ml 600 ml Output Total 100 ml 350 ml Balance 340 ml 250 ml Problem List Problems Medical Problems: (1) Crack cocaine use Status: Acute (2) Dehydration Status: Acute (3) Intractable abdominal pain Status: Acute (4) Pancreatitis Status: Acute Assessment Acute pancreatitis- with polysubstance abuse, slow improvement, advance diet as tolerated, CARLTON FLORENTINO MD Nov 20, 2016 11:33
[2016-11-20 15:11] VITALS: BP 148/83
[2016-11-20] MEDS: ENOXAPARIN 40 MG/0.4 ML SYRINGE. SQ SCH (15:15)
--- NOTE | 2016-11-20 17:23 | PDOC ---
PROGRESS NOTES Chief Complaint Chief Complaint cc: abdominal pain 1. Acute pancreatitis with prior history of pancreatitis. 2. Hypertension. stable. 3. Seizure history. 4. Sleep apnea. History of Present Illness History of Present Illness pain better controlled. he would like to try full liquids tonight pain control iv morphine IV hydration try to advance diet CPAP HS GI following Vitals Vitals Vital Signs Date Time Temp Pulse Resp B/P Pulse Ox O2 Delivery O2 Flow Rate FiO2 11/20/16 15:11 97.7 63 18 148/83 94 Room Air 97.7 Physical Exam General: Alert, Oriented X3, Cooperative Heart: Normal S1, Normal S2 Lungs: Clear Abdomen: Normal bowel sounds, Soft, No tenderness, Other Labs LABS Laboratory Tests Test 11/19/16 20:48 11/20/16 03:15 White Blood Count 5.3x10^3/uL (4.0-11.0) Red Blood Count 3.50x10^6/uL (4.30-5.70) Hemoglobin 10.5g/dL (13.0-17.5) Hematocrit 31.4% (39.0-53.0) Mean Corpuscular Volume 90fL (79-100) Mean Corpuscular Hemoglobin 30pg (25-35) Mean Corpuscular Hemoglobin Concent 33g/dL (31-37) Red Cell Distribution Width 13.1% (11.5-14.5) Platelet Count 238x10^3/uL (140-400) Neutrophils (%) (Auto) 47% (31-73) Lymphocytes (%) (Auto) 34% (24-48) Monocytes (%) (Auto) 14% (0-9) Eosinophils (%) (Auto) 5% (0-3) Basophils (%) (Auto) 1% (0-3) Neutrophils # (Auto) 2.5x10^3uL (1.8-7.7) Lymphocytes # (Auto) 1.8x10^3/uL (1.0-4.8) Monocytes # (Auto) 0.7x10^3/uL (0.0-1.1) Eosinophils # (Auto) 0.3x10^3/uL (0.0-0.7) Basophils # (Auto) 0.0x10^3/uL (0.0-0.2) Sodium Level 144mmol/L (136-145) 144mmol/L (136-145) Potassium Level 3.5mmol/L (3.5-5.1) 3.2mmol/L (3.5-5.1) Chloride Level 106mmol/L (98-107) 107mmol/L (98-107) Carbon Dioxide Level 28mmol/L (21-32) 27mmol/L (21-32) Anion Gap 10 (6-14) 10 (6-14) Blood Urea Nitrogen 8mg/dL (8-26) 7mg/dL (8-26) Creatinine 1.0mg/dL (0.7-1.3) 0.9mg/dL (0.7-1.3) Estimated GFR (Cockcroft-Gault) 92.5 104.5 BUN/Creatinine Ratio 8 (6-20) Glucose Level 85mg/dL (70-99) 98mg/dL (70-99) Calcium Level 8.3mg/dL (8.5-10.1) 8.4mg/dL (8.5-10.1) Total Bilirubin 0.2mg/dL (0.2-1.0) Aspartate Amino Transf (AST/SGOT) 24U/L (15-37) Alanine Aminotransferase (ALT/SGPT) 27U/L (16-63) Alkaline Phosphatase 54U/L (46-116) Creatine Kinase 122U/L (39-308) Creatine Kinase MB (Mass) < 0.5ng/mL (0.0-3.6) Creatine Kinase MB Relative Index % (0-4) Troponin I Quantitative < 0.017ng/mL (0.000-0.055) Total Protein 6.9g/dL (6.4-8.2) Albumin 2.8g/dL (3.4-5.0) Albumin/Globulin Ratio 0.7 (1.0-1.7) Amylase Level 53U/L (25-115) Lipase 59U/L (73-393) Review of Systems Review of Systems nausea no abd pain adriana clears, would like fulls Assessment and Plan Assessmemt and Plan Problems Medical Problems: (1) Crack cocaine use Status: Acute (2) Dehydration Status: Acute (3) Intractable abdominal pain Status: Acute (4) Pancreatitis Status: Acute Problems: Comment Review of Relevant I have reviewed the following items tammy (where applicable) has been applied. Labs Laboratory Tests Test 11/19/16 04:00 11/19/16 20:48 11/20/16 03:15 Sodium Level 143mmol/L (136-145) 144mmol/L (136-145) 144mmol/L (136-145) Potassium Level 3.5mmol/L (3.5-5.1) 3.5mmol/L (3.5-5.1) 3.2mmol/L (3.5-5.1) Chloride Level 105mmol/L (98-107) 106mmol/L (98-107) 107mmol/L (98-107) Carbon Dioxide Level 26mmol/L (21-32) 28mmol/L (21-32) 27mmol/L (21-32) Anion Gap 12 (6-14) 10 (6-14) 10 (6-14) Blood Urea Nitrogen 11mg/dL (8-26) 8mg/dL (8-26) 7mg/dL (8-26) Creatinine 1.0mg/dL (0.7-1.3) 1.0mg/dL (0.7-1.3) 0.9mg/dL (0.7-1.3) Estimated GFR (Cockcroft-Gault) 92.5 92.5 104.5 Glucose Level 116mg/dL (70-99) 85mg/dL (70-99) 98mg/dL (70-99) Calcium Level 8.3mg/dL (8.5-10.1) 8.3mg/dL (8.5-10.1) 8.4mg/dL (8.5-10.1) White Blood Count 5.3x10^3/uL (4.0-11.0) Red Blood Count 3.50x10^6/uL (4.30-5.70) Hemoglobin 10.5g/dL (13.0-17.5) Hematocrit 31.4% (39.0-53.0) Mean Corpuscular Volume 90fL (79-100) Mean Corpuscular Hemoglobin 30pg (25-35) Mean Corpuscular Hemoglobin Concent 33g/dL (31-37) Red Cell Distribution Width 13.1% (11.5-14.5) Platelet Count 238x10^3/uL (140-400) Neutrophils (%) (Auto) 47% (31-73) Lymphocytes (%) (Auto) 34% (24-48) Monocytes (%) (Auto) 14% (0-9) Eosinophils (%) (Auto) 5% (0-3) Basophils (%) (Auto) 1% (0-3) Neutrophils # (Auto) 2.5x10^3uL (1.8-7.7) Lymphocytes # (Auto) 1.8x10^3/uL (1.0-4.8) Monocytes # (Auto) 0.7x10^3/uL (0.0-1.1) Eosinophils # (Auto) 0.3x10^3/uL (0.0-0.7) Basophils # (Auto) 0.0x10^3/uL (0.0-0.2) BUN/Creatinine Ratio 8 (6-20) Total Bilirubin 0.2mg/dL (0.2-1.0) Aspartate Amino Transf (AST/SGOT) 24U/L (15-37) Alanine Aminotransferase (ALT/SGPT) 27U/L (16-63) Alkaline Phosphatase 54U/L (46-116) Creatine Kinase 122U/L (39-308) Creatine Kinase MB (Mass) < 0.5ng/mL (0.0-3.6) Creatine Kinase MB Relative Index % (0-4) Troponin I Quantitative < 0.017ng/mL (0.000-0.055) Total Protein 6.9g/dL (6.4-8.2) Albumin 2.8g/dL (3.4-5.0) Albumin/Globulin Ratio 0.7 (1.0-1.7) Amylase Level 53U/L (25-115) Lipase 59U/L (73-393) Laboratory Tests Test 11/19/16 20:48 11/20/16 03:15 White Blood Count 5.3x10^3/uL (4.0-11.0) Red Blood Count 3.50x10^6/uL (4.30-5.70) Hemoglobin 10.5g/dL (13.0-17.5) Hematocrit 31.4% (39.0-53.0) Mean Corpuscular Volume 90fL (79-100) Mean Corpuscular Hemoglobin 30pg (25-35) Mean Corpuscular Hemoglobin Concent 33g/dL (31-37) Red Cell Distribution Width 13.1% (11.5-14.5) Platelet Count 238x10^3/uL (140-400) Neutrophils (%) (Auto) 47% (31-73) Lymphocytes (%) (Auto) 34% (24-48) Monocytes (%) (Auto) 14% (0-9) Eosinophils (%) (Auto) 5% (0-3) Basophils (%) (Auto) 1% (0-3) Neutrophils # (Auto) 2.5x10^3uL (1.8-7.7) Lymphocytes # (Auto) 1.8x10^3/uL (1.0-4.8) Monocytes # (Auto) 0.7x10^3/uL (0.0-1.1) Eosinophils # (Auto) 0.3x10^3/uL (0.0-0.7) Basophils # (Auto) 0.0x10^3/uL (0.0-0.2) Sodium Level 144mmol/L (136-145) 144mmol/L (136-145) Potassium Level 3.5mmol/L (3.5-5.1) 3.2mmol/L (3.5-5.1) Chloride Level 106mmol/L (98-107) 107mmol/L (98-107) Carbon Dioxide Level 28mmol/L (21-32) 27mmol/L (21-32) Anion Gap 10 (6-14) 10 (6-14) Blood Urea Nitrogen 8mg/dL (8-26) 7mg/dL (8-26) Creatinine 1.0mg/dL (0.7-1.3) 0.9mg/dL (0.7-1.3) Estimated GFR (Cockcroft-Gault) 92.5 104.5 BUN/Creatinine Ratio 8 (6-20) Glucose Level 85mg/dL (70-99) 98mg/dL (70-99) Calcium Level 8.3mg/dL (8.5-10.1) 8.4mg/dL (8.5-10.1) Total Bilirubin 0.2mg/dL (0.2-1.0) Aspartate Amino Transf (AST/SGOT) 24U/L (15-37) Alanine Aminotransferase (ALT/SGPT) 27U/L (16-63) Alkaline Phosphatase 54U/L (46-116) Creatine Kinase 122U/L (39-308) Creatine Kinase MB (Mass) < 0.5ng/mL (0.0-3.6) Creatine Kinase MB Relative Index % (0-4) Troponin I Quantitative < 0.017ng/mL (0.000-0.055) Total Protein 6.9g/dL (6.4-8.2) Albumin 2.8g/dL (3.4-5.0) Albumin/Globulin Ratio 0.7 (1.0-1.7) Amylase Level 53U/L (25-115) Lipase 59U/L (73-393) Medications Current Medications Sodium Chloride (Iv Sodium Chloride 0.9% 1000ml Bag) 1,000 ml @ 1,000 mls/hr Q1H IV Last administered on 11/15/16 23:53; Start 11/15/16 at 22:45; Stop 07/22 at 23:44; Status DC Ondansetron HCl (Zofran) 4 mg 1X ONCE IV Last administered on 11/15/16 23:53 ; Start 11/15/16 at 22:45; Stop 11/15/16 at 22:46; Status DC Iohexol (Omnipaque 300 Mg/ml) 75 ml 1X ONCE IV Last administered on 11/15/16 23:38; Start 11/15/16 at 23:45; Stop 11/15/16 at 23:46; Status DC Info (Do NOT chart on this entry -- for MONITORING) 1 each PRN DAILY PRN MC SEE COMMENTS; Start 11/15/16 at 23:30; Stop 11/17/16 at 23:29; Status DC Hydromorphone HCl (Dilaudid) 1 mg 1X ONCE IV Last administered on 11/16/16 01 :01; Start 11/16/16 at 01:00; Stop 11/16/16 at 01:01; Status DC Ondansetron HCl (Zofran) 4 mg PRN Q8HRS PRN IV NAUSEA/VOMITING Last administered on 11/16/16 10:04; Start 11/16/16 at 01:00; Stop 11/17/16 at 00:59 ; Status DC Fentanyl Citrate 50 mcg 50 mcg PRN Q2HR PRN IV SEVERE PAIN Last administered on 11/17/16 00:28; Start 11/16/16 at 01:00; Stop 11/17/16 at 00:59; Status DC Sodium Chloride (Iv Sodium Chloride 0.9% 1000ml Bag) 1,000 ml @ 125 mls/hr Q8H IV ; Start 11/16/16 at 00:56; Stop 11/17/16 at 00:55; Status DC Fentanyl Citrate (Fentanyl 2ml Vial) 50 mcg 1X ONCE IV ; Start 11/16/16 at 01: 30; Stop 11/16/16 at 01:31; Status DC Acetaminophen (Tylenol) 325 mg PRN Q6HRS PRN PO MILD PAIN / TEMP; Start at 10:00 Acetaminophen/ Hydrocodone Bitart (Lortab 5/325) 1 tab PRN Q6HRS PRN PO MODERATE TO SEVERE PAIN Last administered on 11/20/16 10:31; Start 11/16/16 at 10:00 Hydralazine HCl (Apresoline) 10 mg PRN Q4HRS PRN IVP ELEVATED BP, SEE COMMENTS Last administered on 11/17/16 00:28; Start 11/16/16 at 10:00 Ondansetron HCl (Zofran) 4 mg PRN Q8HRS PRN IV NAUSEA/VOMITING Last administered on 11/17/16 06:24; Start 11/16/16 at 10:00 Albuterol Sulfate 2.5 mg 2.5 mg PRN Q4HRS PRN NEB SHORTNESS OF BREATH; Start at 10:00 Sodium Chloride (Iv Sodium Chloride 0.9% 1000ml Bag) 1,000 ml @ 150 mls/hr Q6H40M IV Last administered on 11/17/16 06:00; Start 11/16/16 at 10:00; Stop 11/17/16 at 09:59; Status DC Amlodipine Besylate (Norvasc) 5 mg DAILY PO Last administered on 11/20/16 10: 25; Start 11/16/16 at 14:00 Phenytoin Sodium (Dilantin) 400 mg HS PO Last administered on 11/19/16 21:47; Start 11/16/16 at 21:00 Gabapentin (Neurontin) 900 mg TID PO Last administered on 11/20/16 15:15; Start 11/16/16 at 14:00 Famotidine (Pepcid) 20 mg BID PO Last administered on 11/20/16 10:25; Start at 21:00 Enoxaparin Sodium (Lovenox 40mg Syringe) 40 mg Q24H SQ Last administered on 15:15; Start 11/16/16 at 15:00 Phenytoin Sodium (Dilantin) 30 mg QHS PO Last administered on 11/19/16 21:47; Start 11/16/16 at 21:00 Morphine Sulfate 2 mg 2 mg PRN Q2HR PRN IV PAIN Last administered on 11/19/16 20:48; Start 11/17/16 at 12:30 Sodium Chloride (Iv Sodium Chloride 0.9% 1000ml Bag) 1,000 ml @ 75 mls/hr [id number] IV Last administered on 11/19/16 20:53; Start 11/18/16 at 13:15; Stop 11/20/16 at 09:33; Status DC Nitroglycerin 0.4 mg 0.4 mg PRN Q5MIN PRN SL CHEST PAIN Last administered on 20:56; Start 11/19/16 at 20:15 Potassium Chloride/Dextrose/ Sod Cl 1,000 ml @ 80 mls/hr [id number] IV Last administered on 11/20/16 10:20; Start 11/20/16 at 09:45 Magnesium Sulfate/ Dextrose (Magnesium Sulfate PREMIX 2GM) 50 ml @ 25 mls/hr 1X ONCE IV Last administered on 11/20/16 15:15; Start 11/20/16 at 09:45; Stop 11/20/16 at 11:44; Status DC Active Scripts Active Reported Ranitidine Hcl 150 Mg Capsule 1 Cap PO BID Norvasc (Amlodipine Besylate) 5 Mg Tablet 5 Mg PO DAILY Dilantin (Phenytoin Sodium Extended) 100 Mg Capsule 430 Mg PO HS Gabapentin 300 Mg Capsule 900 Mg PO TID Vitals/I & O Vital Sign - Last 24 Hours 11/19/16 11/19/16 11/19/16 11/19/16 19:00 20:19 20:46 20:48 Temp 98.4 98.4 Pulse 74 70 69 Resp 17 B/P 134/84 139/85 149/79 Pulse Ox 99 97 O2 Delivery Room Air 11/19/16 11/19/16 11/19/16 11/20/16 20:56 21:49 23:00 00:15 Temp 98.3 98.3 Pulse 73 64 Resp 16 B/P 134/72 150/86 Pulse Ox 97 96 97 O2 Delivery Room Air Room Air 11/20/16 11/20/16 11/20/16 11/20/16 00:43 01:22 03:00 07:00 Temp 98.1 98.1 Pulse 66 Resp 18 B/P 146/85 Pulse Ox 100 100 95 O2 Delivery BiPAP/CPAP Room Air Room Air 11/20/16 11/20/16 11/20/16 11/20/16 10:25 10:31 11:15 15:11 Temp 98.0 97.7 98.0 97.7 Pulse 66 59 63 Resp B/P 146/85 145/94 148/83 Pulse Ox 97 94 O2 Delivery Room Air Room Air Room Air Intake and Output 11/19/16 11/19/16 11/20/16 15:00 23:00 07:00 Intake Total 440 ml 600 ml Output Total 100 ml 350 ml Balance 340 ml 250 ml CATALINA VARGAS MD Nov 20, 2016 17:22
[2016-11-20] MEDS: PHENYTOIN SODIUM EXTENDED 30 MG CAPSULE. PO SCH (21:28)
[2016-11-20] MEDS: PHENYTOIN SODIUM EXTENDED 100 MG CAPSULE PO SCH (21:28)
[2016-11-20 23:00] VITALS: BP 121/84
[2016-11-21 06:18] LABS: CALCIUM 8.2 mg/dL (8.5-10.1); CREATININE 1.1 mg/dL (0.7-1.3); GFR 82.9; POTASSIUM 3.6 mmol/L (3.5-5.1)
[2016-11-21 07:00] VITALS: BP 140/71
[2016-11-21] MEDS: AMLODIPINE BESYLATE 5 MG TABLET. PO SCH (08:20)
[2016-11-21] MEDS: GABAPENTIN 300 MG CAPSULE. PO SCH (08:20)
[2016-11-21] MEDS: FAMOTIDINE 20 MG TABLET. PO SCH (08:21)
[2016-11-21] MEDS: HYDROCODONE/APAP 5/325MG TABLET. PO PRN (08:30)
[2016-11-21 10:46] VITALS: BP 150/88
[2016-11-21] MEDS ORDERED: TRAM50TA PO (11:00)
[2016-11-21] MEDS ORDERED: LIDO700A4 TP (11:00)
--- NOTE | 2016-11-21 11:03 | PDOC3 ---
Discharge Summary Visit Information Date of Admission: Nov 16, 2016 Date of Discharge: Nov 21, 2016 Admitting Diagnosis Comment: 1. Acute pancreatitis with prior history of pancreatitis. 2. Hypertension. stable. 3. Seizure history. 4. Sleep apnea. Final Diagnosis Problems Medical Problems: (1) Crack cocaine use Status: Acute (2) Dehydration Status: Acute (3) Intractable abdominal pain Status: Acute (4) Pancreatitis Status: Acute Brief Hospital Course Allergies Allergies Coded Allergies Type Severity Reaction Last Updated Verified sulfamethoxazole Allergy Intermediate 03/27/14 No trimethoprim Allergy Intermediate 03/27/14 No Vital Signs Vital Signs Date Time Temp Pulse Resp B/P Pulse Ox O2 Delivery O2 Flow Rate FiO2 11/21/16 10:46 98.1 68 18 150/88 97 Room Air 98.1 Lab Results Laboratory Tests Test 11/19/16 20:48 11/20/16 03:15 11/21/16 05:07 White Blood Count 5.3x10^3/uL (4.0-11.0) Red Blood Count 3.50x10^6/uL (4.30-5.70) Hemoglobin 10.5g/dL (13.0-17.5) Hematocrit 31.4% (39.0-53.0) Mean Corpuscular Volume 90fL (79-100) Mean Corpuscular Hemoglobin 30pg (25-35) Mean Corpuscular Hemoglobin Concent 33g/dL (31-37) Red Cell Distribution Width 13.1% (11.5-14.5) Platelet Count 238x10^3/uL (140-400) Neutrophils (%) (Auto) 47% (31-73) Lymphocytes (%) (Auto) 34% (24-48) Monocytes (%) (Auto) 14% (0-9) Eosinophils (%) (Auto) 5% (0-3) Basophils (%) (Auto) 1% (0-3) Neutrophils # (Auto) 2.5x10^3uL (1.8-7.7) Lymphocytes # (Auto) 1.8x10^3/uL (1.0-4.8) Monocytes # (Auto) 0.7x10^3/uL (0.0-1.1) Eosinophils # (Auto) 0.3x10^3/uL (0.0-0.7) Basophils # (Auto) 0.0x10^3/uL (0.0-0.2) Sodium Level 144mmol/L (136-145) 144mmol/L (136-145) 143mmol/L (136-145) Potassium Level 3.5mmol/L (3.5-5.1) 3.2mmol/L (3.5-5.1) 3.6mmol/L (3.5-5.1) Chloride Level 106mmol/L (98-107) 107mmol/L (98-107) 108mmol/L (98-107) Carbon Dioxide Level 28mmol/L (21-32) 27mmol/L (21-32) 30mmol/L (21-32) Anion Gap 10 (6-14) 10 (6-14) 5 (6-14) Blood Urea Nitrogen 8mg/dL (8-26) 7mg/dL (8-26) 9mg/dL (8-26) Creatinine 1.0mg/dL (0.7-1.3) 0.9mg/dL (0.7-1.3) 1.1mg/dL (0.7-1.3) Estimated GFR (Cockcroft-Gault) 92.5 104.5 82.9 BUN/Creatinine Ratio 8 (6-20) Glucose Level 85mg/dL (70-99) 98mg/dL (70-99) 126mg/dL (70-99) Calcium Level 8.3mg/dL (8.5-10.1) 8.4mg/dL (8.5-10.1) 8.2mg/dL (8.5-10.1) Total Bilirubin 0.2mg/dL (0.2-1.0) Aspartate Amino Transf (AST/SGOT) 24U/L (15-37) Alanine Aminotransferase (ALT/SGPT) 27U/L (16-63) Alkaline Phosphatase 54U/L (46-116) Creatine Kinase 122U/L (39-308) Creatine Kinase MB (Mass) < 0.5ng/mL (0.0-3.6) Creatine Kinase MB Relative Index % (0-4) Troponin I Quantitative < 0.017ng/mL (0.000-0.055) Total Protein 6.9g/dL (6.4-8.2) Albumin 2.8g/dL (3.4-5.0) Albumin/Globulin Ratio 0.7 (1.0-1.7) Amylase Level 53U/L (25-115) Lipase 59U/L (73-393) Laboratory Tests Test 11/21/16 05:07 Sodium Level 143mmol/L (136-145) Potassium Level 3.6mmol/L (3.5-5.1) Chloride Level 108mmol/L (98-107) Carbon Dioxide Level 30mmol/L (21-32) Anion Gap 5 (6-14) Blood Urea Nitrogen 9mg/dL (8-26) Creatinine 1.1mg/dL (0.7-1.3) Estimated GFR (Cockcroft-Gault) 82.9 Glucose Level 126mg/dL (70-99) Calcium Level 8.2mg/dL (8.5-10.1) Brief Hospital Course Mr. Carranza is a 61 old heavy set AA male admitted for acute pancreatitis, no GB dse, no hyperlipidemia and is non diabetic but does drink occ alcohol and did test positive for coccaine, Also hx acute chronic lumbago and narc dependence - usually follows [place] and [place] has stopped his long acting morphine, Family also did not want him on stroong pain meds - signif time there Anycase, treated conservatively, lipase normal on dc, tolerating GI soft Ready for home HEavy counselling done Time 40 mins cumulative Proc; none COnuslt: GI Discharge Information Condition at Discharge: Improved Disposition/Orders: D/C to Home Scheduled Amlodipine Besylate (Norvasc) 5 MG PO DAILY (Reported) Gabapentin (Gabapentin) 900 MG PO TID (Reported) Phenytoin Sodium Extended (Dilantin) 430 MG PO HS (Reported) Ranitidine Hcl (Ranitidine Hcl) 1 CAP PO BID (Reported) JENNIFER CAMARILLO MD Nov 21, 2016 11:03
== END 2016-11-21 11:47 | disposition home or self-care (01) | DRG 439 ==
LOC: ER 20:55 → 5 SOUTH 11-16 00:25
PROVIDERS: ADMIT Internal Medicine; ATTEND Internal Medicine
DX: K85.90 Acute pancreatitis without necrosis or infection, unspecified (principal); F14.20 Cocaine dependence, uncomplicated; R65.10 Systemic inflammatory response syndrome (SIRS) of non-infectious origin without acute organ dysfunction; E86.0 Dehydration; F17.200 Nicotine dependence, unspecified, uncomplicated; I11.0 Hypertensive heart disease with heart failure; I50.9 Heart failure, unspecified; K59.00 Constipation, unspecified; N40.0 Benign prostatic hyperplasia without lower urinary tract symptoms; R56.9 Unspecified convulsions; E11.40 Type 2 diabetes mellitus with diabetic neuropathy, unspecified; G89.29 Other chronic pain; Z95.1 Presence of aortocoronary bypass graft; Z79.899 Other long term (current) drug therapy; Z88.2 Allergy status to sulfonamides; Z88.8 Allergy status to other drugs, medicaments and biological substances
CPT/HCPCS: 36415; 74177; 76705; 80048; 80053; 81001; 82150; 82550; 82553; 83690; 84484; 85007; 85027; 93005; 95811; 96361; 96374; 96375; G0480; G0481; J0360; J1170; J1650; J2270; J2405; J3010; J7030; J7060; Q9967; 99285-25

== ENCOUNTER 2017-07-15 18:21 | Emergency (ER) | payer OTHER ==
[~2017-07-15] VITALS: Ht 167.6 cm; Wt 93.0 kg
[~2017-07-15 18:21] MED LIST: AMLO5TAB4 PO; GABA-586 PO; LIDO700A4 TP; PHEN100C PO; RANI150C PO; TRAM50TA PO
--- NOTE | 2017-07-15 18:51 | PHYS DOC ---
Past Medical History Past Medical History: Hypertension, Pancreatitis, Seizure Additional Past Medical Histor: neuropathy Past Surgical History: Other Additional Past Surgical Histo: right rotator cuff Alcohol Use: Rarely Additional Information: pt denies today, 07/15/17; spouse reports pt is heavy drinker Drug Use: Other Social History Narrative: pt denies 07/15/17; pt's spouse reports pt uses drugs Adult General Chief Complaint Chief Complaint: ABDOMINAL PAIN HPI HPI Patient is a 62 year old M who presents with epigastric pain with a history of pancreatitis. Patient states he having increasing epigastric pain for the past day with nausea and no vomiting. Patient is a history of pancreatitis and was admitted a couple months goes for it. Patient initially denied any use of alcohol or drugs however family member in the room confirm that he does binge drink and that was most likely his cause to his previous pancreatitis. Family member also noted that he does do illicit drugs. Patient denied any fevers. Patient denies any chest pain or shortness of breath. Patient had no other complaints. Review of Systems Review of Systems GEN: Denies fevers, chills, sweats HEENT: Denies blurred vision, sore throat CV: Denies chest pain RESP: Denies shortness of air, cough GI: Epigastric pain with nausea NEURO: Denies confusion, dizziness MSK: Denies weakness, joint pain/swelling All other systems were reviewed and found to be within normal limits, except as documented in this note. Current Medications Current Medications Current Medications Medications (Trade) Dose Ordered Sig/Chaya Start Time Stop Time Status Last Admin Dose Admin Fentanyl Citrate (Fentanyl 2ml Vial) 50 mcg 1X ONCE 07/15/17 20:00 07/15/17 20:01 DC 07/15/17 19:57 50 MCG Info (Do NOT chart on this entry -- for MONITORING) 1 each PRN DAILY PRN 07/15/17 19:45 07/17/17 19:44 Iohexol (Omnipaque 300 Mg/ml) 75 ml 1X ONCE 07/15/17 20:00 07/15/17 20:01 DC 07/15/17 19:47 75 ML Ondansetron HCl (Zofran) 4 mg 1X ONCE 07/15/17 19:00 07/15/17 19:01 DC 07/15/17 19:22 4 MG Sodium Chloride 1,000 ml @ 1,000 mls/hr 1X ONCE 07/15/17 19:00 07/15/17 19:59 DC 07/15/17 19:22 1,000 MLS/HR Allergies Allergies Allergies Coded Allergies Type Severity Reaction Last Updated Verified sulfamethoxazole Allergy Intermediate 03/27/14 No trimethoprim Allergy Intermediate 03/27/14 No Physical Exam Physical Exam GEN.: Mild distress. Alert and oriented. HEENT: Head is normocephalic, atraumatic NECK: Supple. LUNGS: CTAB. HEART: RRR, S1, S2 present. Peripheral pulses intact ABDOMEN: Soft, tenderness palpation over the epigastric region, no rebound tenderness, no guarding, no abdominal distention. Positive bowel sounds. EXTREMITIES: Without any cyanosis. NEUROLOGIC: Normal speech, normal tone PSYCHIATRIC: Normal affect, normal mood. SKIN: No ulcerations Current Patient Data Vital Signs Vital Signs Date Time Temp Pulse Resp B/P (MAP) Pulse Ox O2 Delivery O2 Flow Rate FiO2 07/15/17 19:57 93 16 163/84 (110) 98 Room Air 07/15/17 18:27 99.2 99.2 Lab Values Laboratory Tests Test 07/15/17 19:15 07/15/17 19:25 White Blood Count 7.3 x10^3/uL (4.0-11.0) Red Blood Count 4.60 x10^6/uL (4.30-5.70) Hemoglobin 13.4 g/dL (13.0-17.5) Hematocrit 40.7 % (39.0-53.0) Mean Corpuscular Volume 88 fL (79-100) Mean Corpuscular Hemoglobin 29 pg (25-35) Mean Corpuscular Hemoglobin Concent 33 g/dL (31-37) Red Cell Distribution Width 13.3 % (11.5-14.5) Platelet Count 240 x10^3/uL (140-400) Neutrophils (%) (Auto) 85 % (31-73) H Lymphocytes (%) (Auto) 7 % (24-48) L Monocytes (%) (Auto) 6 % (0-9) Eosinophils (%) (Auto) 2 % (0-3) Basophils (%) (Auto) 0 % (0-3) Neutrophils # (Auto) 6.2 x10^3uL (1.8-7.7) Lymphocytes # (Auto) 0.5 x10^3/uL (1.0-4.8) L Monocytes # (Auto) 0.4 x10^3/uL (0.0-1.1) Eosinophils # (Auto) 0.1 x10^3/uL (0.0-0.7) Basophils # (Auto) 0.0 x10^3/uL (0.0-0.2) Segmented Neutrophils % 87 % (35-66) H Lymphocytes % 8 % (24-48) L Monocytes % 4 % (0-10) Eosinophils % 1 % (0-5) Platelet Estimate Adequate (ADEQUATE) Sodium Level 138 mmol/L (136-145) Potassium Level 4.0 mmol/L (3.5-5.1) Chloride Level 101 mmol/L (98-107) Carbon Dioxide Level 28 mmol/L (21-32) Anion Gap 9 (6-14) Blood Urea Nitrogen 10 mg/dL (8-26) Creatinine 1.1 mg/dL (0.7-1.3) Estimated GFR (Cockcroft-Gault) 82.6 BUN/Creatinine Ratio 9 (6-20) Glucose Level 111 mg/dL (70-99) H Calcium Level 8.3 mg/dL (8.5-10.1) L Total Bilirubin 0.4 mg/dL (0.2-1.0) Aspartate Amino Transferase (AST) 32 U/L (15-37) Alanine Aminotransferase (ALT) 87 U/L (16-63) H Alkaline Phosphatase 120 U/L (46-116) H Total Protein 8.1 g/dL (6.4-8.2) Albumin 3.9 g/dL (3.4-5.0) Albumin/Globulin Ratio 0.9 (1.0-1.7) L Lipase 419 U/L (73-393) H Ethyl Alcohol Level < 10 mg/dL (0-10) Urine Collection Type Unknown Urine Color Yellow Urine Clarity Cloudy Urine pH 6.5 Urine Specific Topping 1.015 Urine Protein Negative mg/dL (NEG-TRACE) Urine Glucose (UA) Negative mg/dL (NEG) Urine Ketones (Stick) Negative mg/dL (NEG) Urine Blood Moderate (NEG) Urine Nitrite Negative (NEG) Urine Bilirubin Negative (NEG) Urine Urobilinogen Dipstick 0.2 mg/dL (0.2 mg/dL) Urine Leukocyte Esterase Negative (NEG) Urine RBC 11-20 /HPF (0-2) Urine WBC 0 /HPF (0-4) Urine Squamous Epithelial Cells Occ /LPF Urine Bacteria 0 /HPF (0-FEW) Urine Mucus Slight /LPF Urine Opiates Screen Neg (NEG) Urine Methadone Screen Neg (NEG) Urine Barbiturates Neg (NEG) Urine Phencyclidine Screen Neg (NEG) Urine Amphetamine/Methamphetamine Neg (NEG) Urine Benzodiazepines Screen Neg (NEG) Urine Cocaine Screen Pos (NEG) Urine Cannabinoids Screen Neg (NEG) Urine Ethyl Alcohol Neg (NEG) Laboratory Tests 07/15/17 19:15 Laboratory Tests 07/15/17 19:15 EKG EKG 1902: EKG shows sinus tach rate of 101 no STEMI[] Radiology/Procedures Radiology/Procedures CT scan abdomen and pelvis: IMPRESSION: 1. No acute findings are identified. 2. Left adrenal gland mass is stable. 3. Atrophy of the pancreatic body and tail is again identified, without acute pancreatic inflammatory change. 4. Several borderline enlarged mesenteric lymph nodes are identified, nonspecific. 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 (See chart for details) ED course: Patient was seen and examined emergency room abdominal workup was ordered along with a CT scan abdomen pelvis with contrast Patient is given 50 of fentanyl for abdominal pain 2030: On reexamination patient asymptomatic resting comfortable in the bed she was updated on CT findings and plan to discharge home. Patient wanted to go home. Talked the patient alternative diagnoses including gastric ulcer. To the patient about his alcohol abuse. MDM: After reviewing the chart, CC/HPI/PMH, physical exam, [lab results], [ radiological results], I do not believe the patient has an intra-abdominal emergency warranting further workup and/or admission at this time. The patient' s lipase is slightly elevated however the patient able to tolerate by mouth and is pain-free and I believe he is stable to be discharged. Talked to the patient about other diagnoses outside of pancreatitis and recommended short-term follow- up with his PCP in one to 2 days. Patient stable for discharge. Additional verbal discharge instructions were provided to the patient and that if symptoms get worse or any new symptoms arise that are worrisome to the patient he is to return to the emergency room immediately [] Dragon Disclaimer Dragon Disclaimer This electronic medical record was generated, in whole or in part, using a voice recognition dictation system. Departure Departure Impression: Primary Impression: Epigastric pain Disposition: 01 HOME, SELF-CARE Condition: IMPROVED Referrals: UNKNOWN PCP NAME (PCP) Patient Instructions: Abdominal Pain (Nonspecific) Additional Instructions: Please follow-up with your family physician in the next one to 2 days and return if symptoms increase MITUL BEARDEN DO Jul 15, 2017 18:51
[2017-07-15] MEDS ORDERED: ONDANSETRON PF 4 MG/2 ML VIAL. IV ONE (19:00)
[2017-07-15] MEDS ORDERED: IV NORMAL SALINE 1000ML BAG 1,000 ML IV ONE (19:00)
[2017-07-15 19:22] LABS: BASO % 0 % (0-3); EOS % 2 % (0-3); HEMATOCRIT 40.7 % (39.0-53.0); HEMOGLOBIN 13.4 g/dL (13.0-17.5); LYMPH # 0.5 x10^3/uL (1.0-4.8); LYMPH % 7 % (24-48); MEAN CORPUSCULAR HEMOGLOBIN 29 pg (25-35); MEAN CORPUSCULAR HGB CONC 33 g/dL (31-37); MEAN CORPUSCULAR VOLUME 88 fL (79-100); MONO % 6 % (0-9); NEUT % 85 % (31-73); PLATELET COUNT 240 x10^3/uL (140-400); RED CELL DISTRIBUTION WIDTH 13.3 % (11.5-14.5); WHITE BLOOD COUNT 7.3 x10^3/uL (4.0-11.0)
[2017-07-15 19:33] LABS: BILIRUBIN,URINE NEGATIVE (NEG); GLUCOSE,URINE NEGATIVE (NEG); NITRITE,URINE NEGATIVE (NEG); PH,URINE 6.5; PROTEIN,URINE NEGATIVE (NEG-TRACE); UROBILINOGEN,URINE 0.2 mg/dL (0.2 mg/dL)
[2017-07-15 19:36] LABS: CALCIUM 8.3 mg/dL (8.5-10.1); CREATININE 1.1 mg/dL (0.7-1.3); GFR 82.6
[2017-07-15 19:39] LABS: BACTERIA,URINE 0 /HPF (0-FEW); BARBITURATES NEG (NEG); BENZODIAZEPINES NEG (NEG); CANNABINOIDS NEG (NEG); COCAINE POS (NEG); METHADONE NEG (NEG); OPIATES NEG (NEG); PHENCYCLIDINE NEG (NEG); SQUAMOUS EPITHELIAL CELL,UR OCC /LPF; WBC,URINE 0 /HPF (0-4)
[2017-07-15 19:42] LABS: ALBUMIN 3.9 g/dL (3.4-5.0); ALBUMIN/GLOBULIN RATIO 0.9 (1.0-1.7); TOTAL BILIRUBIN 0.4 mg/dL (0.2-1.0); TOTAL PROTEIN 8.1 g/dL (6.4-8.2)
[2017-07-15] MEDS ORDERED: CONTRAST GIVEN MC PRN (19:45)
[2017-07-15 19:53] LABS: % EOS 1 % (0-5); PLT ESTIMATE ADEQUATE (ADEQUATE)
[2017-07-15] MEDS ORDERED: IOHEXOL 300 MG/ML 100ML VIAL. IV ONE (20:00)
[2017-07-15] MEDS ORDERED: fentaNYL PF VIAL 100 MCG/2 ML VIAL IV ONE (20:00)
--- NOTE | 2017-07-15 20:27 | RAD ---
CT abdomen and pelvis with contrast Indication: Severe mid abdominal pain and nausea since 1300 hours today.. . Technique: Intravenous contrast is given. No oral contrast as per request. Comparison: November 15, 2016 Exposure: One or more of the following individualized dose reduction techniques were utilized for this examination: 1. Automated exposure control 2. Adjustment of the mA and/or kV according to patient size 3. Use of iterative reconstruction technique. FINDINGS: Lower thorax: Small lesion in the anterior right cardiophrenic space is again identified and stable in appearance. Pneumoperitoneum: None visualized Liver: Unremarkable Spleen: Unremarkable Pancreas: The pancreatic body and tail are very atrophic, relative to the neck and head. No evidence of acute peripancreatic fluid or inflammatory type change. Adrenals: Left adrenal mass appears similar in size and shape. Kidneys: Hypodense lesion of the right kidney is too small to characterize but unchanged and likely a cyst. Tiny left renal lesion is unchanged and likely a cyst also too small to characterize. Gallbladder: No calcified stone Aorta: Abdominal aorta is nonaneurysmal Lymph nodes: Several small mesenteric lymph nodes identified, measuring up to 7 mm short axis. GI tract: No obstruction identified. No acute colonic inflammatory type change. Appendix: Appears normal Ascites: No gross ascites. Urinary bladder: Not opacified, but no apparent abnormality. No evidence of pelvic mass. Bones: No destructive process. IMPRESSION: 1. No acute findings are identified. 2. Left adrenal gland mass is stable. 3. Atrophy of the pancreatic body and tail is again identified, without acute pancreatic inflammatory change. 4. Several borderline enlarged mesenteric lymph nodes are identified, nonspecific. #5 previously seen mass at the cardiophrenic angle is unchanged. Electronically signed by: Manny Langford MD (07/15/2017 8:23 PM) [place] [id number]
[2017-07-15 20:30] VITALS: BP 170/86
--- NOTE | 2017-07-16 07:26 | EKG ---
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
== END 2017-07-15 20:46 | disposition home or self-care (01) ==
LOC: ER 18:21
DX: R10.13 Epigastric pain (principal); R11.0 Nausea; I10 Essential (primary) hypertension; G62.9 Polyneuropathy, unspecified; Z87.19 Personal history of other diseases of the digestive system; Z88.2 Allergy status to sulfonamides; Z88.1 Allergy status to other antibiotic agents
CPT/HCPCS: 36415; 74177; 80053; 80307; 81001; 83690; 85007; 85025; 93005; 96361; 96374; 96375; 99285; G0480; J2405; J3010; J7030; Q9967; G0479

== ENCOUNTER 2018-02-28 12:22 | Emergency (ER) | payer SELFPAY, OTHER ==
[2018-02-28] MEDS ORDERED: FLUORESCEIN OPHTH TEST STRIP. (12:41)
[2018-02-28] MEDS ORDERED: TETRACAINE 0.5% OPHTH SOLUTION 4ML BOTTLE. (12:41)
[2018-02-28] MEDS ORDERED: LIDOCAINE WITH 8.4% SOD BICARB 3 ML DISP.SYRIN. (12:43)
[2018-02-28 12:47] LABS: ADD MAN DIFF? NO
[2018-02-28 12:51] LABS: BASO # 0.1 x10^3/uL (0.0-0.2); BASO % 1 % (0-3); EOS # 0.2 x10^3/uL (0.0-0.7); EOS % 4 % (0-3); HEMATOCRIT 37.6 % (39.0-53.0); HEMOGLOBIN 12.8 g/dL (13.0-17.5); LYMPH % 21 % (24-48); MEAN CORPUSCULAR HEMOGLOBIN 31 pg (25-35); MEAN CORPUSCULAR HGB CONC 34 g/dL (31-37); MEAN CORPUSCULAR VOLUME 90 fL (79-100); MONO # 0.4 x10^3/uL (0.0-1.1); MONO % 9 % (0-9); NEUT # 3.2 x10^3uL (1.8-7.7); NEUT % 65 % (31-73); PLATELET COUNT 249 x10^3/uL (140-400); RED BLOOD COUNT 4.18 x10^6/uL (4.30-5.70); WHITE BLOOD COUNT 4.8 x10^3/uL (4.0-11.0)
[2018-02-28 13:06] LABS: ANION GAP 5 (6-14); BLOOD UREA NITROGEN 16 mg/dL (8-26); BUN/CREATININE RATIO 13 (6-20); CARBON DIOXIDE 30 mmol/L (21-32); CHLORIDE 104 mmol/L (98-107); CREATININE 1.2 mg/dL (0.7-1.3); GFR 74.7; GLUCOSE 101 mg/dL (70-99); POTASSIUM 4.2 mmol/L (3.5-5.1); SODIUM 139 mmol/L (136-145)
[2018-02-28 13:12] LABS: ALBUMIN 3.9 g/dL (3.4-5.0); ALBUMIN/GLOBULIN RATIO 0.8 (1.0-1.7); ALK PHOS 100 U/L (46-116); ALT (SGPT) 53 U/L (16-63); AST (SGOT) 30 U/L (15-37); PHENY 33.3 mcg/mL (10.0-20.0); TOTAL BILIRUBIN 0.3 mg/dL (0.2-1.0); TOTAL PROTEIN 8.6 g/dL (6.4-8.2)
[2018-02-28] MEDS: TETRACAINE 0.5% OPHTH SOLUTION 4ML BOTTLE. OS (13:21)
[2018-02-28] MEDS: FLUORESCEIN OPHTH TEST STRIP. OS (13:21)
[2018-02-28] MEDS: LIDOCAINE WITH 8.4% SOD BICARB 3 ML DISP.SYRIN. INJ (13:23)
[2018-02-28] MEDS: LORazepam 1 MG TABLET PO (14:15)
[2018-02-28] MEDS: NEO/POLYMYX/DEXAMETH OPHTH SUSPENSION 5ML BOTTLE. OS (15:25)
== END 2018-02-28 15:32 | disposition home or self-care (01) ==
LOC: ER 12:22
DX: S01.21XA Laceration without foreign body of nose, initial encounter (principal); S05.02XA Injury of conjunctiva and corneal abrasion without foreign body, left eye, initial encounter; S05.8X2A Other injuries of left eye and orbit, initial encounter; H11.32 Conjunctival hemorrhage, left eye; M54.2 Cervicalgia; I10 Essential (primary) hypertension; Z88.2 Allergy status to sulfonamides; Z88.5 Allergy status to narcotic agent; W22.8XXA Striking against or struck by other objects, initial encounter; Y93.89 Activity, other specified; Y92.89 Other specified places as the place of occurrence of the external cause; Y99.8 Other external cause status
CPT/HCPCS: 12014; 36415; 70450; 70486; 72125; 80053; 80185; 85025; 99285-25

== ENCOUNTER 2018-03-28 22:17 | Emergency (ER) | payer SELFPAY ==
[~2018-03-28] VITALS: Ht 177.8 cm; Wt 93.0 kg
[~2018-03-28 22:17] MED LIST changes: +HYDR-965 PO; +NEO/5DRO OS
[2018-03-28 22:29] VITALS: BP 194/95
[2018-03-28] MEDS ORDERED: KETOROLAC 60 MG/2 ML INJ. IM ONE (22:30)
[2018-03-28] MEDS ORDERED: ORPHENADRINE CITRATE 60 MG/2 ML VIAL. IM ONE (22:30)
[2018-03-28] MEDS ORDERED: TRAM50TA PO (23:27)
[2018-03-28] MEDS ORDERED: ORPH100T PO (23:27)
--- NOTE | 2018-03-28 23:28 | PHYS DOC ---
Past Medical History Past Medical History: Hypertension, Pancreatitis, Seizure Additional Past Medical Histor: neuropathy Past Surgical History: Other Additional Past Surgical Histo: right rotator cuff Alcohol Use: Rarely Drug Use: Cocaine, Other Adult General Chief Complaint Chief Complaint: LOWER BACK PAIN OR INJURY HPI HPI Patient is a 62-year-old male who presents with complaint of chronic lower back pain that he states is been worse for the last 3-4 days. He denies any recent injuries and states he has not been doing any heavy lifting. He indicates that sometimes he just moves the right way and it makes his back hurt worse. He rates his pain to be a 10 out of 10. He denies any radiation of the pain and has no loss of bowel or bladder control. He denies any abdominal pain, urinary discomfort or fever. Review of Systems Review of Systems Constitutional: Denies fever or chills [] Respiratory: Denies cough or shortness of breath [] Cardiovascular: Denies chest pain[] GI: Denies abdominal pain, nausea, vomiting or diarrhea [] : Denies dysuria or hematuria [] Musculoskeletal: Complains of lower back pain[] Neurologic: Denies headache, focal weakness or sensory changes. Denies loss of bowel or bladder control [] All other systems were reviewed and found to be within normal limits, except as documented in this note. Current Medications Current Medications Current Medications Medications (Trade) Dose Ordered Sig/Chaya Start Time Stop Time Status Last Admin Dose Admin Ketorolac Tromethamine (Toradol Im) 30 mg 1X ONCE 03/28/18 22:30 03/28/18 22:31 DC 03/28/18 22:30 30 MG Orphenadrine Citrate (Norflex) 60 mg 1X ONCE 03/28/18 22:30 03/28/18 22:31 DC 03/28/18 22:30 60 MG Allergies Allergies Allergies Coded Allergies Type Severity Reaction Last Updated Verified sulfamethoxazole Allergy Intermediate 03/27/14 No trimethoprim Allergy Intermediate 03/27/14 No Physical Exam Physical Exam Constitutional: Well developed, well nourished, no acute distress, non-toxic appearance. [] Neck: Normal range of motion, no tenderness, supple, no stridor. [] Cardiovascular:Heart rate regular rhythm [] Lungs & Thorax: Bilateral breath sounds clear to auscultation [] Abdomen: Bowel sounds normal, soft, no tenderness. [] Back: There is tenderness to palpation in the right lumbar paraspinal musculature with mild palpable spasm noted. [] Extremities: No tenderness, no cyanosis, no clubbing, ROM intact, no edema. [] Neurologic: Alert and oriented X 3, normal motor function, normal sensory function, no focal deficits noted. [] Current Patient Data Vital Signs Vital Signs Date Time Temp Pulse Resp B/P (MAP) Pulse Ox O2 Delivery O2 Flow Rate FiO2 03/28/18 22:29 98.5 60 18 194/95 (128) 100 Room Air 98.5 EKG EKG [] Radiology/Procedures Radiology/Procedures [] Course & Med Decision Making Course & Med Decision Making Pertinent Labs and Imaging studies reviewed. (See chart for details) [] Dragon Disclaimer Dragon Disclaimer This electronic medical record was generated, in whole or in part, using a voice recognition dictation system. Departure Departure Impression: Primary Impression: Acute exacerbation of chronic low back pain Disposition: HOME, SELF-CARE Condition: STABLE Referrals: UNKNOWN PCP NAME (PCP) Patient Instructions: Chronic Back Pain Additional Instructions: Take prescribed medications as directed and follow-up with your primary care provider in the next few days. Scripts Orphenadrine Citrate (ORPHENADRINE CITRATE) 100 Mg Tablet.er 1 TAB PO BID PRN for MUSCLE SPASMS, #14 TAB Prov: CASEY JOSE Jr. DO 03/28/18 Tramadol Hcl (TRAMADOL HCL) 50 Mg Tablet 50 MG PO Q6HRS PRN for PAIN, #15 TAB Prov: CASEY JOSE Jr. DO 03/28/18 CASEY JOSE Jr. DO Mar 28, 2018 23:28
== END 2018-03-28 23:42 | disposition home or self-care (01) ==
LOC: ER 22:17
DX: G89.29 Other chronic pain (principal); M54.5 Low back pain; I10 Essential (primary) hypertension; Z88.1 Allergy status to other antibiotic agents; Z88.2 Allergy status to sulfonamides
CPT/HCPCS: 96372; 99284; J1885; J2360

== ENCOUNTER 2018-08-19 15:25 | Emergency (ER) | payer MEDICARE ==
[~2018-08-19] VITALS: Ht 167.6 cm; Wt 99.8 kg
[~2018-08-19 15:25] MED LIST changes: -GABA-586 PO; +GABA300C18 PO; +HYDR-3165 PO; -HYDR-965 PO; +ORPH100T PO
[2018-08-19 15:26] VITALS: BP 178/87
--- NOTE | 2018-08-19 15:40 | PHYS DOC ---
Past Medical History Past Medical History: Hypertension, Pancreatitis, Seizure Additional Past Medical Histor: neuropathy Past Surgical History: Other Additional Past Surgical Histo: right rotator cuff Alcohol Use: Rarely Drug Use: Cocaine, Other Adult General Chief Complaint Chief Complaint: BACK PAIN OR INJURY [facility] HPI Patient is a 63 year old male who presents with left shoulder pain that feels like when his right shoulder rotator cuff was torn. Patient states he had a waste picker his mom 4 days ago after she fell and ever since then it flared up his low back pain which is chronic and he hurt his left shoulder. He rates the pain 9 out of 10. It is a sharp achy feeling. Patient states that he took Aleve and Tylenol last yesterday. Review of Systems Review of Systems Constitutional: Denies fever or chills [] Eyes: Denies change in visual acuity, redness, or eye pain [] HENT: Denies nasal congestion or sore throat [] Respiratory: Denies cough or shortness of breath [] Cardiovascular: No additional information not addressed in HPI [] GI: Denies abdominal pain, nausea, vomiting, bloody stools or diarrhea [] : Denies dysuria or hematuria [] Musculoskeletal: Chronic low back back pain or left shoulder joint pain [] Integument: Denies rash or skin lesions [] Neurologic: Denies headache, focal weakness or sensory changes [] All other systems were reviewed and found to be within normal limits, except as documented in this note. Current Medications Current Medications Current Medications Medications (Trade) Dose Ordered Sig/Chaya Start Time Stop Time Status Last Admin Dose Admin Acetaminophen/ Hydrocodone Bitart (Lortab 5/325) 1 tab 1X ONCE 08/19/18 15:45 08/19/18 15:51 DC 08/19/18 16:06 1 TAB Cyclobenzaprine HCl (Flexeril) 10 mg 1X ONCE 08/19/18 15:45 08/19/18 15:51 DC 08/19/18 16:06 10 MG Ketorolac Tromethamine (Toradol Im) 60 mg 1X ONCE 08/19/18 15:45 08/19/18 15:51 DC 08/19/18 16:07 60 MG Allergies Allergies Allergies Coded Allergies Type Severity Reaction Last Updated Verified sulfamethoxazole Allergy Intermediate 03/27/14 No trimethoprim Allergy Intermediate 03/27/14 No Physical Exam Physical Exam Constitutional: Well developed, well nourished, no acute distress, non-toxic appearance. [] HENT: Normocephalic, atraumatic, bilateral external ears normal, oropharynx moist, no oral exudates, nose normal. [] Eyes: PERRLA, EOMI, conjunctiva normal, no discharge. [] Neck: Normal range of motion, no tenderness, supple, no stridor. [] Cardiovascular:Heart rate regular rhythm, no murmur [] Lungs & Thorax: Bilateral breath sounds clear to auscultation [] Abdomen: Bowel sounds normal, soft, no tenderness, no masses, no pulsatile masses. [] Skin: Warm, dry, no erythema, no rash. [] Back: No tenderness, no CVA tenderness. [] Extremities: Anterior and Posterior left shoulder tenderness, no cyanosis, no clubbing, ROM intact, no edema. [] Neurologic: Alert and oriented X 3, normal motor function, normal sensory function, no focal deficits noted. [] Psychologic: Affect normal, judgement normal, mood normal. [] Current Patient Data Vital Signs Vital Signs Date Time Temp Pulse Resp B/P (MAP) Pulse Ox O2 Delivery O2 Flow Rate FiO2 08/19/18 16:06 16 97 Room Air 08/19/18 15:26 98.1 90 178/87 (117) 98.1 EKG EKG [] Radiology/Procedures Radiology/Procedures Left shoulder Impressions: [facility] [address] [place] [address] IMAGING REPORT Signed PATIENT: ANUSHKA PEREIRA ACCOUNT: [id number] : 1955 LOCATION: ER AGE: 63 SEX: M EXAM STATUS: REG ER ORD. PHYSICIAN: KELI CHACON APRN REASON: pain PROCEDURE: SHOULDER 2+V LEFT Left shoulder, 3 views, 08/19/2018: HISTORY: Shoulder pain There is minimal spurring along the glenoid rim and at the AC joint. There is minimal cystic and sclerotic change at the rotator cuff insertion site upon the greater tuberosity. No fracture or dislocation is identified. The periarticular soft tissues are unremarkable. IMPRESSION: 1. Mild degenerative change. 2. No acute bony abnormality is detected. Electronically signed by: Marcello Kimball MD (08/19/2018 4:21 PM) [facility] DICTATED and SIGNED BY: MARCELLO KIMBALL MD DATE: 08/19/18 162 Course & Med Decision Making Course & Med Decision Making Patient is a 63 year old male who presents with left shoulder pain that feels like when his right shoulder rotator cuff was torn. Patient states he had a waste picker his mom 4 days ago after she fell and ever since then it flared up his low back pain which is chronic and he hurt his left shoulder. He rates the pain 9 out of 10. It is a sharp achy feeling. Patient states that he took Aleve and Tylenol last yesterday. And oriented. Skin pink warm and dry. Mucous murmurs moist. Examining the left shoulder patient has range of motion in the shoulder but there is pain. The patient is lifting the shoulder up ordered once he gets past shoulder height he states the pain goes away and he can lift the rest the way above his head easily. Patient is able to rotate the shoulder and every direction fully. He denies any numbness or tingling. There is no swelling or deformity to the shoulder. With palpation the anterior and posterior part of the shoulder painful only. He is given Toradol, cyclobenzaprine, [place] in the ED. X-ray shows 1. Mild degenerative change. 2. No acute bony abnormality is detected. Patient will need to follow up with orthopedics for further evaluation of the shoulder for possible MRI to make sure he did not care rotator cuff soon as possible. Dragon Disclaimer Dragon Disclaimer This electronic medical record was generated, in whole or in part, using a voice recognition dictation system. Departure Departure Impression: Primary Impression: Shoulder pain Additional Impression: Chronic low back pain Disposition: HOME, SELF-CARE Condition: STABLE Referrals: UNKNOWN PCP NAME (PCP) VIRGINIA LOYOLA MD Patient Instructions: Shoulder Pain Additional Instructions: Call Orthopedics for a follow up appointment. Take medications as prescribed. Scripts Orphenadrine Citrate (ORPHENADRINE CITRATE) 100 Mg Tablet.er 1 TAB PO BID, #20 TAB Prov: INESKELI M CIRCULATION MANAGER 08/19/18 Hydrocodone/Apap 5-325 (NORCO 5-325 TABLET) 1 Each Tablet 1 TAB PO PRN Q6HRS PRN for PAIN, #15 TAB 0 Refills Prov: KELI CHACON CIRCULATION MANAGER 08/19/18 Problem Qualifiers Primary Impression: Shoulder pain Chronicity: acute Laterality: left Qualified Codes: M25.512 - Pain in left shoulder Additional Impression: Chronic low back pain Back pain laterality: bilateral Sciatica presence: without sciatica Qualified Codes: M54.5 - Low back pain; G89.29 - Other chronic pain KELI CHACON CIRCULATION MANAGER Aug 19, 2018 15:40
[2018-08-19] MEDS ORDERED: HYDROcodone/APAP 5/325MG 1 TAB TABLET PO ONE (15:45)
[2018-08-19] MEDS ORDERED: CYCLOBENZAPRINE 10 MG TABLET. PO ONE (15:45)
[2018-08-19] MEDS ORDERED: KETOROLAC 60 MG/2 ML VIAL. IM ONE (15:45)
--- NOTE | 2018-08-19 16:26 | RAD ---
Left shoulder, 3 views, 08/19/2018: HISTORY: Shoulder pain There is minimal spurring along the glenoid rim and at the AC joint. There is minimal cystic and sclerotic change at the rotator cuff insertion site upon the greater tuberosity. No fracture or dislocation is identified. The periarticular soft tissues are unremarkable. IMPRESSION: 1. Mild degenerative change. 2. No acute bony abnormality is detected. Electronically signed by: Marcello Kimball MD (08/19/2018 4:21 PM) [facility]
[2018-08-19] MEDS ORDERED: ORPH100T PO (16:42)
[2018-08-19] MEDS ORDERED: HYDR-3164 PO (16:42)
== END 2018-08-19 16:50 | disposition home or self-care (01) ==
LOC: ER 15:25
DX: M25.512 Pain in left shoulder (principal); G89.29 Other chronic pain; M54.5 Low back pain; I10 Essential (primary) hypertension; Z88.1 Allergy status to other antibiotic agents; Z88.2 Allergy status to sulfonamides
CPT/HCPCS: 73030; 96372; 99283; J1885

== ENCOUNTER 2019-12-03 08:49 | Emergency (ER) | payer MEDICARE ==
[~2019-12-03] VITALS: Ht 167.6 cm; Wt 110.0 kg
[~2019-12-03 08:49] MED LIST changes: +HYDR-3164 PO
[2019-12-03] MEDS ORDERED: IBUPROFEN 200 MG TABLET. PO ONE (09:00)
--- NOTE | 2019-12-03 09:01 | PHYS DOC ---
Past Medical History Past Medical History: Anxiety, Depression, Hypertension, Pancreatitis, Seizure Additional Past Medical Histor: neuropathy Past Surgical History: Other Additional Past Surgical Histo: right rotator cuff Smoking Status: Former Smoker Alcohol Use: Rarely Drug Use: None General Adult EDM: Chief Complaint: MECHANICAL FALL HPI: HPI: Patient is a 64-year-old male, who presents to the emergency department for evaluation. Patient states that about an hour prior to arrival, he tripped walking down the stairs and fell down about 7 stairs. Although he has a seizure history, and reports he has been taking his Dilantin, he did not have a seizure. He did not have a loss of consciousness, but complains of head pain and neck pain. He also complains of right shoulder pain. He states he has chronic low back issues, and states the fall exacerbated his lower back but did not have any direct back injury. He denies any left upper extremity, or bilateral lower extremity injuries. He did not have any numbness, weakness, and does not have any chest pain, shortness of breath, abdominal pain, dizziness or lightheadedness. Movement and palpation of the affected areas worsen his pain. There are no alleviating factors to his symptoms. Review of Systems: Review of Systems: Constitutional: Denies fever or chills. [] Eyes: Denies change in visual acuity. [] HENT: Denies nasal congestion or sore throat. [] Respiratory: Denies cough or shortness of breath. [] Cardiovascular: Denies chest pain or edema. [] GI: Denies abdominal pain, nausea, vomiting, bloody stools or diarrhea. [] : Denies dysuria. [] Musculoskeletal: As per HPI [] Integument: Denies rash. [] Neurologic: Denies focal weakness or sensory changes. [] Endocrine: Denies polyuria or polydipsia. [] Lymphatic: Denies swollen glands. [] Psychiatric: Denies depression or anxiety. [] Heart Score: Risk Factors: Risk Factors: DM, Current or recent (<one month) smoker, HTN, HLP, family history of CAD, obesity. Risk Scores: Score 0 - 3: 2.5% MACE over next 6 weeks - Discharge Home Score 4 - 6: 20.3% MACE over next 6 weeks - Admit for Clinical Observation Score 7 - 10: 72.7% MACE over next 6 weeks - Early Invasive Strategies Allergies: Allergies: Allergies Coded Allergies Type Severity Reaction Last Updated Verified sulfamethoxazole Allergy Intermediate 03/27/14 No trimethoprim Allergy Intermediate 03/27/14 No Physical Exam: PE: PHYSICAL EXAM: CONSTITUTIONAL: Well developed, well nourished HEAD: normocephalic, there is a small anterior scalp contusion, otherwise cranium is atraumatic EENT: PERRL, EOMI. Conjunctivae normal color, sclerae non-icteric; moist mucous membranes. NECK: cervical collar is in place, no obvious tenderness. LUNGS: Lungs CTA, breathing even and unlabored. Normal air movement. HEART: Regular rate and rhythm, no murmur CHEST: No deformity; non-tender ABDOMEN: The abdomen is soft, and non-tender, no masses or bruits. EXTREM: There is mild diffuse tenderness to palpation in the right shoulder, although range of motion, and abduction, internal and external rotation, is normal. Distal PMS is normal. There is no gross deformity. The remainder of the extremities are atraumatic, with normal ROM; no deformity, no calf tenderness. Normal pulses palpable in all extremities. There is no pedal edema. SKIN: No rash; no diaphoresis NEURO: Alert; normal speech and cognition; CN's grossly intact; strength grossly intact without focal deficit. BACK: No CVA TTP. There is mild tenderness to palpation to the lumbar spine diffusely without focal bony midline tenderness to palpation or step-off. The thoracic spine is nontender. EKG: EKG: [] Radiology/Procedures: Radiology/Procedures: PROCEDURE: CT HEAD AND CERVICAL SPINE WO CT HEAD AND CERVICAL SPINE WO History: Fall. Head and neck pain. Comparison: February 28, 2018 Technique: Noncontrast CT imaging was performed of the head and cervical spine. Coronal and sagittal reconstructions were performed. Exposure: One or more of the following individualized dose reduction techniques were utilized for this examination: 1. Automated exposure control 2. Adjustment of the mA and/or kV according to patient size 3. Use of iterative reconstruction technique. Findings: Head CT: No intracranial hemorrhage. No mass effect. No hydrocephalus. Left anterior scalp soft tissue swelling. Moderate cerebellar volume loss, unchanged. Mild foci of decreased attenuation within the hemispheric white matter, most often due to chronic microvascular ischemia, unchanged. Imaged orbits are unremarkable. Imaged paranasal sinuses and mastoid air cells are clear. No acute calvarial fracture. Cervical spine CT: Straightening of the normal cervical lordosis, likely positional. Normal vertebral body height. No fracture. Moderate multilevel degenerative disc changes most prominent C5-C6. Multilevel facet arthropathy. Soft tissues unremarkable. Impression: Head CT: 1. No acute intracranial abnormality. 2. Left anterior scalp soft tissue swelling. 3. Moderate cerebellar volume loss, unchanged. Cervical spine CT: 1. No acute fracture or subluxation of the cervical spine. 2. Moderate multilevel cervical spondylosis.[] PROCEDURE: LUMBAR SPINE 2-3V LUMBAR SPINE 2-3V History: Fall. Pain. Technique: 3 views lumbar spine. Comparison: CT July 15, 2017 Findings: Normal vertebral body height and alignment. No fracture. L5 inferior endplate Schmorl's node, unchanged. Mild multilevel degenerative disc changes with joint space narrowing. Mild lower lumbar facet arthropathy. Impression: 1. No acute osseous abnormality. 2. Mild multilevel lumbar spondylosis. PROCEDURE: SHOULDER 2+V RIGHT SHOULDER 2+V RIGHT History: Fall. Pain. Technique: 3 views right shoulder. Comparison: None Findings: No dislocation. Mild right glenohumeral DJD. No fracture. Soft tissues unremarkable. Irregularity of the posterior humeral head, may relate to prior anterior glenohumeral dislocations. Impression: 1. No acute osseous abnormality. 2. Mild right glenohumeral DJD. Course & Med Decision Making: Course & Med Decision Making Pertinent Imaging studies reviewed. (See chart for details) [] 11:15 AM: Patient remains stable. I discussed test results, the need for clos e follow-up, and return precautions. Maria D Disclaimer: Maria D Disclaimer: This electronic medical record was generated, in whole or in part, using a voice recognition dictation system. Departure Departure Impression: Primary Impression: Shoulder contusion Additional Impressions: Closed head injury Low back strain Disposition: 01 HOME, SELF-CARE Condition: STABLE Referrals: UNKNOWN PCP NAME (PCP) Patient Instructions: Contusion, Head Injury, Adult, Lumbosacral Strain, Shoulder Pain, Shoulder Sprain Scripts Diclofenac Sodium (DICLOFENAC SODIUM) 50 Mg Tablet. 1 TAB PO BID, #20 TAB 0 Refills Prov: SAHARA RIDER MD 12/03/19 SAHARA RIDER MD Dec 03, 2019 09:01
--- NOTE | 2019-12-03 09:59 | RAD ---
CT HEAD AND CERVICAL SPINE WO History: Fall. Head and neck pain. Comparison: February 28, 2018 Technique: Noncontrast CT imaging was performed of the head and cervical spine. Coronal and sagittal reconstructions were performed. Exposure: One or more of the following individualized dose reduction techniques were utilized for this examination: 1. Automated exposure control 2. Adjustment of the mA and/or kV according to patient size 3. Use of iterative reconstruction technique. Findings: Head CT: No intracranial hemorrhage. No mass effect. No hydrocephalus. Left anterior scalp soft tissue swelling. Moderate cerebellar volume loss, unchanged. Mild foci of decreased attenuation within the hemispheric white matter, most often due to chronic microvascular ischemia, unchanged. Imaged orbits are unremarkable. Imaged paranasal sinuses and mastoid air cells are clear. No acute calvarial fracture. Cervical spine CT: Straightening of the normal cervical lordosis, likely positional. Normal vertebral body height. No fracture. Moderate multilevel degenerative disc changes most prominent C5-C6. Multilevel facet arthropathy. Soft tissues unremarkable. Impression: Head CT: 1. No acute intracranial abnormality. 2. Left anterior scalp soft tissue swelling. 3. Moderate cerebellar volume loss, unchanged. Cervical spine CT: 1. No acute fracture or subluxation of the cervical spine. 2. Moderate multilevel cervical spondylosis. Electronically signed by: Maikol Roman DO (12/03/2019 9:57 AM) [id number]
--- NOTE | 2019-12-03 11:03 | RAD ---
LUMBAR SPINE 2-3V History: Fall. Pain. Technique: 3 views lumbar spine. Comparison: CT July 15, 2017 Findings: Normal vertebral body height and alignment. No fracture. L5 inferior endplate Schmorl's node, unchanged. Mild multilevel degenerative disc changes with joint space narrowing. Mild lower lumbar facet arthropathy. Impression: 1. No acute osseous abnormality. 2. Mild multilevel lumbar spondylosis. Electronically signed by: Maikol Roman DO (12/03/2019 10:59 AM) [id number]
--- NOTE | 2019-12-03 11:06 | RAD ---
SHOULDER 2+V RIGHT History: Fall. Pain. Technique: 3 views right shoulder. Comparison: None Findings: No dislocation. Mild right glenohumeral DJD. No fracture. Soft tissues unremarkable. Irregularity of the posterior humeral head, may relate to prior anterior glenohumeral dislocations. Impression: 1. No acute osseous abnormality. 2. Mild right glenohumeral DJD. Electronically signed by: Maikol Roman DO (12/03/2019 11:03 AM) [id number]
[2019-12-03] MEDS ORDERED: DICL50TA4 PO (11:15)
[2019-12-03 11:20] VITALS: BP 134/86
[2019-12-03] MEDS ORDERED: ACETAMINOPHEN 500 MG TABLET PO ONE (11:30)
[2019-12-03] MEDS ORDERED: LABETALOL 20 MG/4 ML DISP.SYRIN. IVP ONE (12:15)
== END 2019-12-03 12:14 | disposition home or self-care (01) ==
LOC: ER 08:49
DX: S40.011A Contusion of right shoulder, initial encounter (principal); S00.03XA Contusion of scalp, initial encounter; S39.012A Strain of muscle, fascia and tendon of lower back, initial encounter; F41.9 Anxiety disorder, unspecified; F32.9 Major depressive disorder, single episode, unspecified; I10 Essential (primary) hypertension; G62.9 Polyneuropathy, unspecified; Z87.891 Personal history of nicotine dependence; Z98.890 Other specified postprocedural states; W01.0XXA Fall on same level from slipping, tripping and stumbling without subsequent striking against object, initial encounter; Y93.89 Activity, other specified; Y92.89 Other specified places as the place of occurrence of the external cause; Y99.8 Other external cause status
CPT/HCPCS: 70450; 72100; 72125; 73030; 99285

== ENCOUNTER 2020-02-15 02:46 | Emergency (ER) | payer MEDICARE ==
[~2020-02-15] VITALS: Ht 177.8 cm; Wt 96.0 kg
[~2020-02-15 02:46] MED LIST changes: +DICL50TA4 PO
[2020-02-15] MEDS ORDERED: AZIT250T PO (03:51)
--- NOTE | 2020-02-15 03:51 | PHYS DOC ---
Past Medical History Past Medical History: Anxiety, Depression, Hypertension, Pancreatitis, Seizure Additional Past Medical Histor: neuropathy Past Surgical History: Other Additional Past Surgical Histo: right rotator cuff Smoking Status: Former Smoker Alcohol Use: Rarely Drug Use: None General Adult EDM: Chief Complaint: COUGH HPI: HPI: 64-year-old male presents for evaluation of fever cough headache nasal congestion. Patient states cough started yesterday. Patient states fever headache congestion started today. Review of Systems: Review of Systems: Constitutional: Positive fever Eyes: Denies change in visual acuity. [] HENT: Positive nasal congestion Respiratory: Positive cough Cardiovascular: Denies chest pain or edema. [] GI: Denies abdominal pain, nausea, vomiting, bloody stools or diarrhea. [] : Denies dysuria. [] Musculoskeletal: Denies back pain or joint pain. [] Integument: Denies rash. [] Neurologic: Denies headache, focal weakness or sensory changes. [] Endocrine: Denies polyuria or polydipsia. [] Lymphatic: Denies swollen glands. [] Psychiatric: Denies depression or anxiety. [] Heart Score: Risk Factors: Risk Factors: DM, Current or recent (<one month) smoker, HTN, HLP, family history of CAD, obesity. Risk Scores: Score 0 - 3: 2.5% MACE over next 6 weeks - Discharge Home Score 4 - 6: 20.3% MACE over next 6 weeks - Admit for Clinical Observation Score 7 - 10: 72.7% MACE over next 6 weeks - Early Invasive Strategies Allergies: Allergies: Allergies Coded Allergies Type Severity Reaction Last Updated Verified sulfamethoxazole Allergy Intermediate 03/27/14 No trimethoprim Allergy Intermediate 03/27/14 No Physical Exam: PE: Constitutional: Well developed, well nourished, no acute distress, non-toxic appearance. [] HENT: Normocephalic, atraumatic, bilateral external ears normal, oropharynx moist, no oral exudates, nose normal. [] Eyes: PERRLA, EOMI, conjunctiva normal, no discharge. [] Neck: Normal range of motion, no tenderness, supple, no stridor. [] Cardiovascular:Heart rate regular rhythm, no murmur [] Lungs & Thorax: Bilateral breath sounds clear to auscultation [] Abdomen: Bowel sounds normal, soft, no tenderness, no masses, no pulsatile masses. [] Skin: Warm, dry, no erythema, no rash. [] Back: No tenderness, no CVA tenderness. [] Extremities: No tenderness, no cyanosis, no clubbing, ROM intact, no edema. [] Neurologic: Alert and oriented X 3, normal motor function, normal sensory function, no focal deficits noted. [] Psychologic: Affect normal, judgement normal, mood normal. [] EKG: EKG: [] Radiology/Procedures: Radiology/Procedures: [] Impression: Wet Read No focal infiltrate Course & Med Decision Making: Course & Med Decision Making Pertinent Labs and Imaging studies reviewed. (See chart for details) [] Patient was evaluated for chief complaint. Work-up consisted of chest x-ray and a COVID swab. Based on patient's symptoms discussed probability that patient is COVID positive. Swabs obtained patient informed swab will take at least 24 hours to result. Patients vital signs stable-- requires no supplemental 02. Patient advised to take Tylenol and ibuprofen as needed for pain or fever. Patient will be prescribed Zithromax. Patient instructed to self isolate and quarantine. Dragon Disclaimer: 4INFO Disclaimer: This electronic medical record was generated, in whole or in part, using a voice recognition dictation system. Departure Departure Impression: Primary Impression: Viral infection Additional Impression: Person under investigation for COVID-19 Disposition: 01 HOME, SELF-CARE Condition: STABLE Referrals: KEKE KEYS MD (PCP) Patient Instructions: Fever, Upper Respiratory Infection, Adult Additional Instructions: You have been tested for or diagnosed with COVID-19. It is an infection caused by a new type of coronavirus. COVID-19 will cause cold-like or mild flu symptoms in most. It can cause more severe symptoms like problems breathing in some. There is no treatment for COVID-19. The body will clear the infection over time. Self-care will help to ease discomfort. Steps to Take: Self-Care Rest as needed. Healthy habits may help you feel better. Steps include: Choose healthy foods including fruits and vegetables. Drink water throughout the day. Get plenty of sleep each night. If you smoke, try to quit. It may ease breathing. Avoid alcohol. Keep Others Healthy The virus can spread to others. Droplets are released every time you sneeze or cough. The droplets can get into the mouth, nose, or eyes of people near you and lead to infection. To lower the chances of spreading COVID-19 to others: Stay at home until your doctor has said it is safe to leave. If you tested positive this will mean staying isolated until both of the following are true: At least 7 days have passed since the start of illness. You are free of fever for at least 72 hours without the use of medicine. During this time: - Avoid public areas, events, or transportation. Do not return to work or school until your doctor has said it is safe to do so. - Call ahead if you need to go to a medical center. Let them know you may have COVID-19. It will help them guide you where to go. They may also ask you to wear a facemask when you come to the office. - If you call for emergency medical services, let them know you may have COVID- 19. While at home: - Try to avoid close contact with others. Stay about 6 feet away. - If possible, spend most of your time in a separate room from others. - Use a face mask if you will be in close contact with others such as sharing a room or vehicle. - Have someone wipe down common surfaces in the home. Use household suction roller every day on areas like doorknobs, counters, or sinks. - Cough or sneeze into a tissue. Throw the tissue away right after use. If a tissue is not available, cough or sneeze into your elbow. - Wash your hands often. Wash them after sneezing or coughing. Use soap and water and wash for at least 20 seconds. Alcohol based hand mud cleaner operator can be used if soap and water is not available. - Do not prepare food for others. Avoid sharing personal items like forks, spoons, or toothbrushes. - Avoid close contact with pets while you are sick. There is no evidence of the virus passing to pets. This is a safety step until more is known about this virus. Isolation can be frustrating. Social interaction can help. Keep in touch with friends and family through phone and tech options. You can still interact with others in your home, just keep a safe distance of about 6 feet. Follow-up: Your doctors office will check in with you to see if there are any changes in your health. You may be asked to keep track of symptoms to share with them. They will also let you know when you are clear to be in public again. Problems to Look Out For: Contact your doctor if your recovery is not going as you expect. Get emergency care if you have problems such as: - Trouble breathing - Nonstop chest pain or pressure - Changes in awareness, confusion, or problems waking - Lips or face have bluish color - Worsening of symptoms If you think you have an emergency, call for emergency medical services right away. As taken from [facility] Azithromycin (ZITHROMAX) 250 Mg Tablet 1 PKG PO UD, #6 TAB Prov: ALONZO BOTELLO I DO 02/15/20 Justicifation of Admission Dx: Justifications for Admission: Justification of Admission Dx: N/A ALONZO BOTELLO I DO Feb 15, 2020 03:51
[2020-02-15 04:30] VITALS: BP 148/86
--- NOTE | 2020-02-15 06:22 | RAD ---
AP portable chest radiograph 02/15/2020 Clinical History: Shortness of breath. An AP erect portable digital radiograph of the chest was obtained. The cardiac silhouette is mildly enlarged. The thoracic aorta is tortuous. No acute pulmonary infiltrate is seen. No pleural effusion or pneumothorax is noted. Degenerative changes are seen involving the thoracic spine and both shoulders. IMPRESSION: No acute abnormality is seen. Electronically signed by: Bernard Carrero MD (02/15/2020 6:19 AM) [id number]
== END 2020-02-15 04:35 | disposition home or self-care (01) ==
LOC: ER 02:46
DX: U07.1 COVID-19 (principal); R05 Cough; R51 Headache; R09.81 Nasal congestion; F41.9 Anxiety disorder, unspecified; F32.9 Major depressive disorder, single episode, unspecified; I10 Essential (primary) hypertension; K86.1 Other chronic pancreatitis; G62.9 Polyneuropathy, unspecified; Z98.890 Other specified postprocedural states; Z87.891 Personal history of nicotine dependence
CPT/HCPCS: 71045; 99284; U0003

== ENCOUNTER 2020-08-06 18:02 | Emergency (ER) | payer MEDICARE, OTHER ==
[~2020-08-06] VITALS: Ht 167.6 cm; Wt 90.9 kg
[~2020-08-06 18:02] MED LIST changes: +AZIT250T PO
[2020-08-06] MEDS ORDERED: IV NORMAL SALINE 1000ML BAG 1,000 ML IV ONE (18:30)
[2020-08-06 18:48] LABS: BASO # 0.1 x10^3/uL (0.0-0.2); BASO % 1 % (0-3); EOS # 0.1 x10^3/uL (0.0-0.7); EOS % 1 % (0-3); HEMATOCRIT 39.8 % (39.0-53.0); HEMOGLOBIN 13.4 g/dL (13.0-17.5); LYMPH # 1.7 x10^3/uL (1.0-4.8); LYMPH % 22 % (24-48); MEAN CORPUSCULAR HEMOGLOBIN 30 pg (25-35); MEAN CORPUSCULAR HGB CONC 34 g/dL (31-37); MEAN CORPUSCULAR VOLUME 88 fL (79-100); MONO # 0.6 x10^3/uL (0.0-1.1); MONO % 7 % (0-9); NEUT # 5.5 x10^3/uL (1.8-7.7); NEUT % 69 % (31-73); PLATELET COUNT 259 x10^3/uL (140-400); RED BLOOD COUNT 4.54 x10^6/uL (4.30-5.70); RED CELL DISTRIBUTION WIDTH 13.1 % (11.5-14.5); WHITE BLOOD COUNT 7.9 x10^3/uL (4.0-11.0)
--- NOTE | 2020-08-06 18:55 | RAD ---
Exam: CT head INDICATION: Seizure TECHNIQUE: Sequential axial images through the head were obtained without the administration of IV co ntrast. Comparisons: 12/03/2019 FINDINGS: No focal parenchymal lesion or hemorrhage is identified. There is no midline shift or sulcal effaceme nt. Mild patchy hypodensity in the periventricular white matter, similar prior exam. No acute vascular te rritory infarction is identified. Albarran-white distinction is preserved. The ventricular system is within normal limits without compression hydrocephalus. The basal cisterns are well maintained. The visualized portions of the paranasal sinuses and mastoid air cells are well-pneumatized. No acute fractures. IMPRESSION: No acute intracranial abnormality. Exposure: One or more of the following in the visualized dose reduction techniques were utilized for this examination: 1. Automated exposure control 2. Adjustment of the MA and/or KV according to patient size Use of iterative of reconstructive technique Electronically signed by: Yo Jordan MD (08/06/2020 6:53 PM) [facility]
[2020-08-06 19:23] LABS: PHENY < 0.5 mcg/mL (10.0-20.0)
--- NOTE | 2020-08-06 19:23 | PHYS DOC ---
Past Medical History Past Medical History: Seizure Additional Past Medical Histor: neuropathy Past Surgical History: Other Additional Past Surgical Histo: right rotator cuff Smoking Status: Unknown if ever smoked Alcohol Use: None Drug Use: None General Adult EDM: Chief Complaint: SEIZURE HPI: HPI: Patient is a 65 year old [f__sex] who presents with [] Review of Systems: Review of Systems: Constitutional: Denies fever or chills Eyes: Denies redness or eye pain HENT: Denies nasal congestion or sore throat Respiratory: Denies cough or shortness of breath Cardiovascular: Denies chest pain or palpitations GI: Denies abdominal pain, nausea, or vomiting : Denies dysuria or hematuria Musculoskeletal: Denies back pain or joint pain Integument: Denies rash or skin lesions Neurologic: Denies headache, focal weakness or sensory changes Complete systems were reviewed and found to be within normal limits, except as documented in this note. Current Medications: Current Medications Medications (Trade) Dose Ordered Sig/Chaya Start Time Stop Time Status Last Admin Dose Admin Sodium Chloride 1,000 ml @ 1,000 mls/hr 1X ONCE 08/06/20 18:30 08/06/20 19:29 08/06/20 18:50 1,000 MLS/HR Allergies: Allergies: Allergies Coded Allergies Type Severity Reaction Last Updated Verified sulfamethoxazole Allergy Intermediate 03/27/14 No trimethoprim Allergy Intermediate 03/27/14 No Physical Exam: PE: Constitutional: Well developed, well nourished, no acute distress, non-toxic appearance HENT: Normocephalic, atraumatic Eyes: PERRL, EOMI, conjunctiva normal, no discharge Neck: Normal range of motion, no tenderness, supple Lungs & Thorax: No respiratory distress, equal chest rise and fall Abdomen: Soft, no tenderness Skin: Warm, dry, no erythema, no rash Back: No tenderness, no CVA tenderness Extremities: No tenderness, ROM intact, no edema Neurologic: Alert and oriented X 3, normal motor function, normal sensory function, no focal deficits noted Psychologic: Affect normal, judgment normal Current Patient Data: Labs: Laboratory Tests Test 08/06/20 18:15 White Blood Count 7.9 x10^3/uL (4.0-11.0) Red Blood Count 4.54 x10^6/uL (4.30-5.70) Hemoglobin 13.4 g/dL (13.0-17.5) Hematocrit 39.8 % (39.0-53.0) Mean Corpuscular Volume 88 fL (79-100) Mean Corpuscular Hemoglobin 30 pg (25-35) Mean Corpuscular Hemoglobin Concent 34 g/dL (31-37) Red Cell Distribution Width 13.1 % (11.5-14.5) Platelet Count 259 x10^3/uL (140-400) Neutrophils (%) (Auto) 69 % (31-73) Lymphocytes (%) (Auto) 22 % (24-48) L Monocytes (%) (Auto) 7 % (0-9) Eosinophils (%) (Auto) 1 % (0-3) Basophils (%) (Auto) 1 % (0-3) Neutrophils # (Auto) 5.5 x10^3/uL (1.8-7.7) Lymphocytes # (Auto) 1.7 x10^3/uL (1.0-4.8) Monocytes # (Auto) 0.6 x10^3/uL (0.0-1.1) Eosinophils # (Auto) 0.1 x10^3/uL (0.0-0.7) Basophils # (Auto) 0.1 x10^3/uL (0.0-0.2) Laboratory Tests 08/06/20 18:15 Vital Signs: Vital Signs Date Time Temp Pulse Resp B/P (MAP) Pulse Ox O2 Delivery O2 Flow Rate FiO2 08/06/20 18:02 99.1 95 17 155/82 (106) 95 Room Air 99.1 EKG: EKG: @1913 NSR at 65bpm, NO ST elevation, QRS 76ms, QT/QTms 378/398ms, t wave inve rsion III Radiology/Procedures: Radiology/Procedures: PROCEDURE: CT HEAD WO CONTRAST Exam: CT head INDICATION: Seizure TECHNIQUE: Sequential axial images through the head were obtained without the administration of IV contrast. Comparisons: 12/03/2019 FINDINGS: No focal parenchymal lesion or hemorrhage is identified. There is no midline shift or sulcal effacement. Mild patchy hypodensity in the periventricular white matter, similar prior exam. No acute vascular territory infarction is identified. Albarran-white distinction is preserved. The ventricular system is within normal limits without compression hydrocephalus. The basal cisterns are well maintained. The visualized portions of the paranasal sinuses and mastoid air cells are well- pneumatized. No acute fractures. IMPRESSION: No acute intracranial abnormality. Exposure: One or more of the following in the visualized dose reduction techniques were utilized for this examination: 1. Automated exposure control 2. Adjustment of the MA and/or KV according to patient size Use of iterative of reconstructive technique Electronically signed by: Yo Jordan MD (08/06/2020 6:53 PM) [facility] Course & Med Decision Making: Course & Med Decision Making Pertinent Labs and Imaging studies reviewed. (See chart for details) [] Dragon Disclaimer: Dragon Disclaimer: This electronic medical record was generated, in whole or in part, using a voice recognition dictation system. Departure Departure Impression: Primary Impression: Breakthrough seizure Additional Impression: Noncompliance with medications Disposition: 01 DC HOME SELF CARE/HOMELESS Condition: STABLE Referrals: KEKE KEYS MD (PCP) ALINE GUZMÁN MD Patient Instructions: Seizure, Adult, [id number] Scripts Phenytoin Sodium Extended (PHENYTOIN SODIUM EXTENDED) 200 Mg Capsule 2 CAP PO QHS, #14 CAP 0 Refills Prov: CHARLI LEIGH DO 08/06/20 CHARLI LEIGH DO Aug 06, 2020 19:23
[2020-08-06 19:24] LABS: CALCIUM 9.3 mg/dL (8.5-10.1); CREATININE 1.6 mg/dL (0.7-1.3); GFR 53.1; POTASSIUM 3.7 mmol/L (3.5-5.1)
[2020-08-06 19:31] LABS: ALBUMIN 3.8 g/dL (3.4-5.0); ALBUMIN/GLOBULIN RATIO 0.9 (1.0-1.7); TOTAL BILIRUBIN 0.5 mg/dL (0.2-1.0); TOTAL PROTEIN 7.9 g/dL (6.4-8.2)
[2020-08-06 20:30] LABS: AMPHETAMINE/METHAMPHETAMINE NEG (NEG); BARBITURATES NEG (NEG); BENZODIAZEPINES NEG (NEG); CANNABINOIDS NEG (NEG); COCAINE NEG (NEG); METHADONE NEG (NEG); OPIATES NEG (NEG); PHENCYCLIDINE NEG (NEG)
[2020-08-06] MEDS ORDERED: PHEN200C3 PO (21:00)
[2020-08-06 21:07] VITALS: BP 174/82
[2020-08-06] MEDS ORDERED: PHENYTOIN SODIUM EXTENDED 100 MG CAPSULE PO ONE (21:30)
--- NOTE | 2020-08-07 03:22 | EKG ---
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
== END 2020-08-06 21:17 | disposition home or self-care (01) ==
LOC: ER 18:02
DX: R56.9 Unspecified convulsions (principal); Z91.14 Patient's other noncompliance with medication regimen; Z88.1 Allergy status to other antibiotic agents; Z88.2 Allergy status to sulfonamides
CPT/HCPCS: 36415; 70450; 80053; 80185; 80307; 82553; 83605; 84484; 85025; 93005; 96360; 99285; G0480; J7030

== ENCOUNTER 2020-11-17 11:54 | Emergency (ER) | payer MEDICARE, OTHER ==
[~2020-11-17] VITALS: Ht 167.6 cm; Wt 92.0 kg
[~2020-11-17 11:54] MED LIST changes: +PHEN200C3 PO
[2020-11-17 11:56] VITALS: BP 174/82
[2020-11-17] MEDS: NAPROXEN 500 MG TABLET PO STA (13:00)
[2020-11-17] MEDS: diazePAM 5 MG TABLET PO ONE (13:00)
[2020-11-17] MEDS: HYDROcodone/APAP 5/325MG 1 TAB TABLET PO ONE (13:00)
--- NOTE | 2020-11-17 13:02 | RAD ---
XR LUMBAR SPINE 2-3V, XR THORACIC SPINE 3VIEWS History: Reason: back pain after picking up toy from the floor / Spl. Instructions: / History: Technique: 3 views thoracic spine and 3 views lumbar spine. Comparison: None. Findings: Thoracic spine: Normal vertebral body height and alignment. No fracture. Mild thoracic degenerative d isc changes. Lumbar spine: Normal vertebral body height and alignment. No fracture. Mild degenerative disc changes . Lower lumbar facet arthropathy. Impression: 1. No acute osseous abnormality. 2. Mild multilevel thoracolumbar spondylosis. Electronically signed by: Maikol Roman DO (11/17/2020 12:59 PM) [id number]
[2020-11-17] MEDS ORDERED: GABA300C18 PO (13:53)
[2020-11-17] MEDS ORDERED: METH4TAB2 PO (13:53)
[2020-11-17] MEDS ORDERED: DICL50TA2 PO (13:53)
--- NOTE | 2020-11-17 13:54 | PHYS DOC ---
Past Medical History Past Medical History: Hypertension, Seizure, Sciatica Additional Past Medical Histor: neuropathy (BLAKE DOTY Niall GROUP PRACTICE PEDIATRICIAN) Past Surgical History: Other Additional Past Surgical Histo: right rotator cuff (BLAKE DOTY Niall GROUP PRACTICE PEDIATRICIAN) Smoking Status: Unknown if ever smoked Alcohol Use: None Drug Use: None (BLAKE DOTY Niall MCKINLEY) General Adult EDM: Chief Complaint: BACK PAIN OR INJURY HPI: HPI: Patient is a 65 year old male with a history of hypertension, sciatica, chronic low back pain who presents to the ED today complaining of moderate left low back pain that began yesterday after he picked up his mother from the floor. He states his mother has severe Alzheimer's. Patient denies any loss of bowel/bladder function. Describes the pain as sharp and constant worse on movements. Denies anything specifically relieving the pain. He states he has history of chronic back pain and used to get oxycodone and morphine for his pain but due to the opiate epidemic the prescriber stopped giving him the medicine. (BLAKE DOTY Niall GROUP PRACTICE PEDIATRICIAN) Review of Systems: Review of Systems: Constitutional: Denies fever or chills. [] GI: Denies abdominal pain, nausea, vomiting, bloody stools or diarrhea. [] : Denies dysuria. [] Musculoskeletal: Reports low back pain Integument: Denies rash. [] Neurologic: Denies headache, focal weakness or sensory changes. [] Psychiatric: Denies depression or anxiety. [] (BLAKE DOTY Niall GROUP PRACTICE PEDIATRICIAN) Heart Score: C/O Chest Pain: N/A Risk Factors: Risk Factors: DM, Current or recent (<one month) smoker, HTN, HLP, family history of CAD, obesity. Risk Scores: Score 0 - 3: 2.5% MACE over next 6 weeks - Discharge Home Score 4 - 6: 20.3% MACE over next 6 weeks - Admit for Clinical Observation Score 7 - 10: 72.7% MACE over next 6 weeks - Early Invasive Strategies (CHETNAHAKANBLAKE Arnett GROUP PRACTICE PEDIATRICIAN) Current Medications: Current Medications Medications (Trade) Dose Ordered Sig/Chaya Start Time Stop Time Status Last Admin Dose Admin Acetaminophen/ Hydrocodone Bitart (Lortab 5/325) 2 tab 1X ONCE 11/17/20 12:15 11/17/20 12:17 DC 11/17/20 13:00 2 TAB Diazepam (Valium) 5 mg 1X ONCE 11/17/20 12:15 11/17/20 12:17 DC 11/17/20 13:00 5 MG Naproxen (Naprosyn) 500 mg 1X STAT 11/17/20 12:15 11/17/20 12:17 DC 11/17/20 13:00 500 MG (DIPTIBLAKE Arnett GROUP PRACTICE PEDIATRICIAN) Allergies: Allergies: Allergies Coded Allergies Type Severity Reaction Last Updated Verified sulfamethoxazole Allergy Intermediate 03/27/14 No trimethoprim Allergy Intermediate 03/27/14 No (BLAKE DOTY GROUP PRACTICE PEDIATRICIAN) Physical Exam: PE: Constitutional: Well developed, well nourished, no acute distress, non-toxic appearance. [] Skin: Warm, dry, no erythema, no rash. [] Back: Diffuse paraspinal muscle tenderness to the left low back and mid back, no midline thoracic or lumbar spine tenderness, no CVA tenderness. [] Extremities: No tenderness, no cyanosis, no clubbing, ROM intact, no edema. [] Neurologic: Alert and oriented X 3, normal motor function, normal sensory function, no focal deficits noted. [] Psychologic: Affect normal, judgement normal, mood normal. [] (BLAKE DOTY GROUP PRACTICE PEDIATRICIAN) Current Patient Data: Vital Signs: Vital Signs Date Time Temp Pulse Resp B/P (MAP) Pulse Ox O2 Delivery O2 Flow Rate FiO2 11/17/20 13:00 18 99 Room Air 11/17/20 11:56 97.5 66 174/82 (112) 97.5 (BLAKE DOTY GROUP PRACTICE PEDIATRICIAN) EKG: EKG: [] (BLAKE DOTY GROUP PRACTICE PEDIATRICIAN) Radiology/Procedures: Radiology/Procedures: []PROCEDURE: THORACIC SPINE 3V XR LUMBAR SPINE 2-3V, XR THORACIC SPINE 3VIEWS History: Reason: back pain after picking up toy from the floor / Spl. Instructions: / History: Technique: 3 views thoracic spine and 3 views lumbar spine. Comparison: None. Findings: Thoracic spine: Normal vertebral body height and alignment. No fracture. Mild thoracic degenerative disc changes. Lumbar spine: Normal vertebral body height and alignment. No fracture. Mild degenerative disc changes. Lower lumbar facet arthropathy. Impression: 1. No acute osseous abnormality. 2. Mild multilevel thoracolumbar spondylosis. Electronically signed by: Maikol Roman DO (11/17/2020 12:59 PM) [id number] DICTATED and SIGNED BY: MAIKOL ROMAN DO DATE: 11/17/20 [id number] (BLAKE DOTY APRN) Course & Med Decision Making: Course & Med Decision Making Pertinent Labs and Imaging studies reviewed. (See chart for details) This is a 65-year-old male patient presented to the ED today with complaints of left low back pain that began yesterday after lifting the mother. No cauda equina syndrome symptoms. X-ray of the thoracic and lumbar spine are negative. Discharged with Medrol Dosepak, gabapentin and Diclofenac. F/u with PCP next week (BLAKE DOTY APRN) Dragon Disclaimer: Dragon Disclaimer: This electronic medical record was generated, in whole or in part, using a voice recognition dictation system. (BLAKE DOTY APRN) Departure Departure Impression: Primary Impression: Chronic low back pain Qualified Codes: M54.5 - Low back pain; G89.29 - Other chronic pain Additional Impression: Acute lumbosacral myofascial strain Qualified Codes: S39.012A - Strain of muscle, fascia and tendon of lower back, initial encounter Disposition: HOME / SELF CARE / HOMELESS Condition: STABLE Referrals: KEKE KEYS MD (PCP) Follow-up in 1 to 2 weeks Patient Instructions: Back Exercises, [id number], Back Pain, Adult Additional Instructions: You were evaluated for back pain, your middle back and low back x-rays are negative for any acute findings. Consider a heating pad to your back. Take the prescribed medications as ordered. Follow-up with your doctor in 1 to 2 weeks Scripts Diclofenac Potassium (DICLOFENAC POTASSIUM) 50 Mg Tablet 1 TAB PO BID, #20 TAB 0 Refills Prov: BLAKE DOTY ARLEN 11/17/20 Methylprednisolone (MEDROL) 4 Mg Tab.ds.pk 1 PKG PO UD, #1 PKG Prov: BLAKE DOTY ARLEN 11/17/20 Gabapentin (GABAPENTIN ) 300 Mg Capsule 300 MG PO TID for NEUROGENIC PAIN, #30 CAP Prov: BLAKE DOTY Niall MCKINLEY 11/17/20 Attending Signature Attending Signature I have participated in the care of this patient and I have reviewed and agree with all pertinent clinical information above including history, exam, and recommendations. (ADAMA OLIVARES DO) BLAKE DOTY GROUP PRACTICE PEDIATRICIAN Nov 17, 2020 13:54 ADAMA OLIVARES DO Nov 17, 2020 19:22
== END 2020-11-17 14:33 | disposition home or self-care (01) ==
LOC: ER 11:54
DX: S39.012A Strain of muscle, fascia and tendon of lower back, initial encounter (principal); G89.29 Other chronic pain; I10 Essential (primary) hypertension; G30.9 Alzheimer's disease, unspecified; F02.80 Dementia in other diseases classified elsewhere, unspecified severity, without behavioral disturbance, psychotic disturbance, mood disturbance, and anxiety; X50.9XXA Other and unspecified overexertion or strenuous movements or postures, initial encounter; Y93.89 Activity, other specified; Y92.89 Other specified places as the place of occurrence of the external cause; Y99.8 Other external cause status
CPT/HCPCS: 72072; 72100; 99284